=== PATIENT | male | born 1960 | race Caucasian/White ===

== ENCOUNTER 2024-10-29 14:58 | Emergency (ER) | payer MEDICARE, SELFPAY ==
--- NOTE | 2024-10-29 15:00 | RT.EKG_ITS ---
APPROVED REPORT Exam: Resting ECG Reason for Exam: BP varying Patient Location: E HR:72 bpm ECG Measurements Heart Rate 72 AXIS [place] 164 P 49 QRSd 97 QRS -63 QT 401 T 62 QTc 439 Conclusion Sinus rhythm...normal P axis, V-rate 60- [address] segment or T wave abnormalities to suggest occlusive [place]
[2024-10-29 15:03] VITALS: BP 193/103; PULSE 79; RESP 20; TEMP 36.6; O2SAT 95
--- NOTE | 2024-10-29 15:23 | W.ED.GENAD ---
Discharge Plan Disposition Patient Disposition: Home Condition: Stable Discharge Details Clinical Impression: Hypertension Primary Care Provider: None,None ED Provider: Louie Diego Home Meds and New Rx's Prescriptions: New amlodipine 2.5 mg tablet 2.5 mg PO DAILY 30 Days Qty: 30 0RF No Action clonazepam 1 mg tablet 1 mg PO TID Discharge Instructions Instructions: Amlodipine, High Blood Pressure ED, Low-sodium diet Additional Instructions: You were seen in the emergency department for your many symptoms. There is no significant laboratory abnormalities. CT of your head shows no tumor or any other abnormality, the CT from your neck through your pelvis shows no significant abnormality, does show that you have gallstones in the gallbladder that you should pursue outpatient ultrasound once you have a primary care provider. You have some findings in your lungs including a likely slowly developing pulmonary fibrosis, you have an infiltrate in the right upper lung that needs reimaging to see if it resolves on its own. You likely need a referral to pulmonology for baseline pulmonary function testing. I think your dizziness and intermittent blurry vision is due to uncontrolled hypertension, I am sending you the lowest dose of amlodipine sent to [facility]. I have placed you on the list for primary care follow-up, you are 64 years old I think it is very corey that you begin taking care of some of these chronic issues, there is no emergent pathology on a very thorough workup this evening. Please return to the emergency department for chest pain, numbness tingling, shortness of breath, fever, severe abdominal pain or any other emergent concerns. Referrals: [facility] [Provider Group] [facility] [Provider Group] Discharge Data Discharge Date/Time-TO BE ENTERED AT DEPARTURE: 10/29/24 18:45 HPI General Date/Time Provider Initiated Documentation: 10/29/24 14:59. HPI Narrative: 64 year-old male presents to ED today by POV/ambulating with his with a chief complaint of constellation of complaints - reports that his BP has been high, his pulse has been labile, he has had vague R eye blurriness intermittently, and pulsatile whooshing in his ears, endorses switching to a keto-diet 1.5 years ago with weight loss from 260-140lbs, and endorsing intermittent polyuria. Quality described as just feels his whole body is going downhill, no radiation to night sweats, cough, abdominal pain, chest pain, shortness of breath, loss of vision, profound lethargy, endorses early satiety lately, endorses a lump on his L trapezius, and an intermittent R groin swelling that is not painful, that sometimes appears when he is straining to urinate/have a bowel movement. Severity is described as unable to quantify. Palliating factors include nothing specific attempted. Provoking factors include nothing specific. Events leading up to the incident/Associated Symptoms: Patient denies cardiac history, denies pulmonary pathology, endorses he is bipolar and very sensitive to a recent brand change to his clonazepam. Patient had norovirus last week but has resolved. Patient not anticoagulated. Related Data Home Medications ?Medication ?Instructions ?Recorded ?Confirmed amlodipine 2.5 mg tablet 2.5 mg PO DAILY hypertension 30 10/29/24 days #30 tabs clonazepam 1 mg tablet 1 mg PO TID 10/29/24 10/29/24 Previous Rx's ?Medication ?Instructions ?Recorded amlodipine 2.5 mg tablet 2.5 mg PO DAILY hypertension 30 10/29/24 days #30 tabs Allergies Allergy/AdvReac Type Severity Reaction Status Date / Time No Known Allergies Allergy Unverified 10/29/24 15:15 General Stated Complaint: [facility]Medical BONNIE: 3 Review of Systems All systems reviewed & are unremarkable except as noted in HPI and below Exam Narrative Exam Narrative: GENERAL APPEARANCE: Well-nourished, non-toxic, awake and alert, atraumatic, no acute distress. SKIN: Warm, pink, dry, intact, without rashes/lesions/ulcerations. HEAD: Normocephalic, atraumatic, normal hair distribution for gender/age. EYES: Normal conjunctiva, no exudates on lids/lashes. ENT: Nares patent, no circumoral cyanosis, no facial swelling NECK: Supple, trachea midline, painless cervical ROM. LUNGS/CHEST: Lungs CTA bilaterally, non-labored respirations, normal A/P diameter, symmetrical expansion, no chest wall deformity HEART (CV/PV): Regular rate and rhythm without murmur, no peripheral edema, no JVD. ABDOMEN: Soft, non-distended, no guarding. MSK: Normal ROM, no swelling/deformity to bilateral UEs or LEs, moving all extremities without weakness, no cyanosis, spine midline without tenderness, normal curvature. NEURO: Mental Status AAOx4 - alert to person, place, time, events No facial droop, no forehead involvement. Motor: No focal weakness - strength 5/5 in bilateral UEs and LEs, proximal and distal, symmetric. Sensory: sensation intact to light touch globally. Gait normal: patient ambulated without ataxia into ED room. PSYCH: euthymic, cooperative, pleasant, appropriate speech Course Vital Signs Vital signs: Vital Signs Temperature 36.6 C 10/29/24 15:03 Pulse 79 10/29/24 15:03 Respiratory Rate 20 10/29/24 15:03 Blood Pressure 193/103 H 10/29/24 15:03 Pulse Oximetry 95 10/29/24 15:03 Temperature 36.6 C 10/29/24 15:03 Pulse 79 10/29/24 15:03 Respiratory Rate 20 10/29/24 15:03 Blood Pressure 193/103 H 10/29/24 15:03 Pulse Oximetry 95 10/29/24 15:03 Oxygen Delivery Method Room Air 10/29/24 15:03 Oxygen Flow Rate 0 10/29/24 15:03 Pain Level 0 10/29/24 15:03 Medical Decision Making This dictation utilizes [id number] dictation software and may contain unedited grammatical errors. 64 year-old male presents to ED today by POV/ambulating with his with a chief complaint of constellation of complaints - reports that his BP has been high, his pulse has been labile, he has had vague R eye blurriness intermittently, and pulsatile whooshing in his ears, endorses switching to a keto-diet 1.5 years ago with weight loss from 260-140lbs, and endorsing intermittent polyuria. Quality described as just feels his whole body is going downhill, no radiation to night sweats, cough, abdominal pain, chest pain, shortness of breath, loss of vision, profound lethargy, endorses early satiety lately, endorses a lump on his L trapezius, and an intermittent R groin swelling that is not painful, that sometimes appears when he is straining to urinate/have a bowel movement. Severity is described as unable to quantify. Palliating factors include nothing specific attempted. Provoking factors include nothing specific. Events leading up to the incident/Associated Symptoms: Patient denies cardiac history, denies pulmonary pathology, endorses he is bipolar and very sensitive to a recent brand change to his clonazepam. Patient had norovirus last week but has resolved. Patients' medical history: denies major medical history- records search returns no results. Family and social history: denies tobacco use, denies significant ETOH use, denies illicit substance use. Pertinent exam findings / vital signs include neuro intact, benign cardiopulmonary exam- no carotid bruits, visual santiago and vision grossly intact, benign abdomen, noted hypertension, lipomatous lump in L trapezius, no palpable R hernia. Differential / pathologies of concern include pseudotumor cerebri, SIADH or diabetes insipidus, malignancy, labile hypertension, arrhythmia, tick-borne illness, pheochromocytoma. Diagnostic studies of: -CBC, CMP, lactate, troponin, lipase, TSH, UA, magnesium, lactate, CT head with and without contrast, CT neck chest abdomen pelvis with contrast, EKG. -Imaging negative for any intracranial abnormality, there are no malignancies or suspicious findings on the CT of the chest abdomen pelvis or neck, counseled the patient on his finding of pulmonary fibrosis is a likely diagnosis -Laboratory workup is completely benign Interventions of: -Rx for 2.5mg amlodipine, placed on PCP referral list. ED Course/Assessment/Plan: 64-year-old male who does not go to any regular doctors visits presents with [id number] hypertension, bipolar disorder and a constellation of complaints including constitutional symptoms, blurry vision intermittently had a whooshing sound in his ears, his workup is negative for any kind of intracranial abnormality like pseudotumor cerebri or malignancy, his cardiac workup is negative, there is no suspicious findings in the abdomen and pelvis, is not having daily flushing of the skin. I do not suspect pheochromocytoma as a likely diagnosis, counseled the patient on the need for follow-up with primary care provider and started him on 2.5 of amlodipine while he awaits this with strict return criteria for any emergent concerns. Findings not consistent with malignancy, endorgan damage, ACS, intracranial abnormalities, pheochromocytoma. Disposition of Hypertension. Patient verbalized understanding of the plan and return to ED criteria and engaged in shared decision making. Medical Records Medical records reviewed: Yes I reviewed the patient's medical records. Imaging Data Radiologic Study: Attestation: I personally reviewed and interpreted this imaging study as follows: Imaging: CT Scan Radiologist's impression: EXAM: CT HEAD WO/W CLINICAL HISTORY: pulsatile tinnitus, hypertension. TECHNIQUE: Imaging Protocol: Both noninfused and contrast infused CT scans of the brain were performed. IV Contrast Dose =75 cc Axial computed tomography images with coronal and sagittal reformatted images were created and reviewed COMPARISON: No exams were available for comparison FINDINGS: There are no skull fractures nor fluid in the visualized paranasal sinuses. Cerumen is noted in the right external auditory canal. There is no evidence of intracranial hemorrhage, mass effect, or shift of midline structures. There are no extra-axial fluid collections. The ventricles are not enlarged or shifted and there is no blood within the ventricular system nor within the basal cisterns. 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 There is symmetrical involutional change which is slightly more so than typical for this age group. There are no ring enhancing lesions in the brain and there is no abnormal meningeal enhancement, focal or diffuse. IMPRESSION: No significant acute intracranial findings. No significant enhancing intracranial findings. There is symmetrical atrophy noted both supra and infra tentorial. Radiologic Study #2: Attestation: I personally reviewed and interpreted this imaging study as follows: Imaging: CT Scan Radiologist's impression: EXAM: CT NECK CHEST ABD PEL W CLINICAL HISTORY: constitutional symptoms, ?malignancy. TECHNIQUE: Imaging Protocol: Axial computed tomography images with coronal and sagittal reformatted images were created and reviewed CONTRAST MATERIAL: Intravenous: Omnipaque 350 Contrast volume:85 ml Oral: None COMPARISON: No exams were available for comparison FINDINGS: VISUALIZED PARANASAL SINUSES: Unremarkable. NASOPHARYNX: Unremarkable ORODENTAL: There is an anterior fusion plate in the anterior aspect of the mandible. No other significant osseous findings. OROPHARYNX: Unremarkable. No masses evident. HYPOPHARYNX: Unremarkable. Valleculae and epiglottis and aryepiglottic folds appear normal. VOCAL CORDS: Unremarkable. No masses evident. Subglottic airway appears unremarkable. THYROID GLAND: Unremarkable. Normal size and no obvious nodules. SALIVARY GLANDS: Unremarkable. No significant findings in the parotid and submandibular glands. LYMPH NODES: There is no adenopathy evident in the neck and supraclavicular regions. CHEST: LUNGS: There is chronic predominately periphery bilateral interstitial disease in both lung santiago, most probably pulmonary fibrosis. There is an area of patchy infiltrate noted in the right upper lobe measuring 1.2 x 1.0 cm.. Other smaller pleural based increased markings noted bilaterally. There are no pleural effusions evident. There no significant focal findings in the trachea and mainstem bronchi. There is no obvious bronchiectasis. PULMONARY ARTERIES: There are no intraluminal filling defects to suggest presence of obvious acute pulmonary emboli. MEDIASTINUM: There is no hilar nor mediastinal adenopathy. Visualized thyroid unremarkable. CARDIAC: Heart size is normal. There is no pericardial effusion.Caliber of the thoracic aorta is within normal limits. There is no evidence of aortic dissection. OSSEOUS: No significant osseous lesions.No fractures evident.. ABDOMEN: There is no ascites. LIVER: Liver is hypodense implying steatosis. There is a small benign cyst in the inferior right hepatic lobe which measures 0.5 x 0.5 cm. There are no other focal hepatic findings nor dilatation of intrahepatic ducts. GALLBLADDER/BILIARY: The gallbladder is septated at mid level peak there are innumerable tiny gallstones layered within the upper aspect/fundal area of the gallbladder lumen. Lower down there are 2 larger gallstones in the gallbladder neck region, the larger measuring 0.7 x 0.7 cm. The gallbladder itself is not distended nor edematous and there is no pericholecystic fluid CBD is not dilated. There are no calculi seen within the nondilated CBD. PANCREAS: No evidence of pancreatic mass nor dilatation of the pancreatic duct. SPLEEN: Spleen is not enlarged. There are no intrasplenic lesions. Splenic and portal veins are patent. ADRENALS: There are no significant adrenal masses. KIDNEYS: No calculi nor hydronephrosis. No solid renal masses. No cysts evident. ABDOMINAL AORTA: Abdominal aorta is not enlarged. There is incidentally noted common origin of the celiac and superior mesenteric arteries. No stenosis at this level. LYMPH NODES: There is no retroperitoneal nor paraaortic adenopathy. ABDOMINAL WALL: No evidence of significant anterior abdominal wall nor inguinal hernia. GI: There is fecalization of distal ileum loop which exhibits upper normal diameter.No evidence of small-bowel obstruction. No ascites nor free air. PELVIS: LYMPH NODES: There is no intrapelvic nor inguinal adenopathy. GI: The appendix is difficult to identify is individual structure but there are no obvious secondary findings of acute appendicitis.There is extensive sigmoid diverticulosis. No obvious acute diverticulitis. URINARY BLADDER: Posterior wall the bladder is indented by significantly enlarged prostate gland which measures 5.5 cm wide. No distinct mass within the urinary bladder lumen. No intraluminal calculi in the urinary bladder. Pelvic ureters not dilated. REPRODUCTIVE: Enlarged prostate gland measuring 5 cm wide. Seminal vesicles unremarkable. OSSEOUS: No significant osseous lesions. No fractures. IMPRESSION: 1. There is evidence of chronic interstitial bilateral lung disease, probably element chronic pulmonary fibrosis. Small 12 x 10 mm infiltrate noted in the right lung apex. No other confluent infiltrates and there are no pleural effusions nor significant intrathoracic adenopathy evident. 2. No evidence of pulmonary emboli nor aortic dissection. No pericardial effusion. 3. Although there is no evidence of obvious acute cholecystitis, the gallbladder is abnormal in that there are innumerable tiny gallstones in the upper half of the gallbladder above the level of the septum and there are 2 larger gallstones in the lower aspect of the gallbladder with the larger measuring 7 mm. There is no pericholecystic fluid. The CBD is not dilated and there are no radiopaque calculi in the nondilated CBD. Also no evidence of pancreatitis. 4. There is fecalization of distal ileal loop. However, there is no evidence of bowel obstruction. 5. Enlarged prostate gland measuring 5 cm wide. This indents the bladder base. There is no distinct mass within the bladder itself. Report called by myself to ER provider 10/29/2024 at 6:25 p.m. Lab Data Lab results reviewed: Yes I reviewed the patient's lab results. Labs: Laboratory Tests Range/Units 10/29/24 10/29/24 15:38 15:53 WBC (4.4-10.8) 10^3/uL 5.71 RBC (4.36-5.78) 10^6/uL 5.15 Hgb (13.5-17.5) g/dL 15.3 Hct (40.0-50.0) % 45.2 MCV (80-95) fL 88 MCH (27.0-33.0) pg 29.7 MCHC (32.0-36.0) % 33.8 RDW (11.8-14.1) % 12.3 Plt Count (130-400) 10^3/uL 245 MPV (8.0-11.0) fL 9.3 Immature Gran % % 0.4 Neutrophils % % 63.8 Lymphocytes % % 24.0 Monocytes % % 8.6 Eosinophils % % 2.1 Basophils % % 1.1 Nucleated RBC % (0.0-0.3) % 0.0 Absolute Neutrophils (1.2-6.7) 10^3/uL 3.65 Absolute Lymphocytes (1.2-3.4) 10^3/uL 1.37 Absolute Monocytes (0.1-0.8) 10^3/uL 0.49 Absolute Eosinophils (0.0-0.7) 10^3/uL 0.12 Absolute Basophils (0.0-0.2) 10^3/uL 0.06 VBG Lactate (0.6-1.4) mmol/L 1.1 Sodium (136-145) mmol/L 142 Potassium (3.5-5.1) mmol/L 3.7 Chloride (98-107) mmol/L 101 Carbon Dioxide (21.0-32.0) mmol/L 32.3 H Anion Gap (3-11) mmol/L 8.7 BUN (7-18) mg/dL 14 Creatinine (0.70-1.30) mg/dL 1.2 Est GFR (CKD-EPI 2020) (mL/min/1.73m2) 66.70 Glucose (74-106) mg/dL 87 Calcium (8.5-10.1) mg/dL 9.6 Magnesium (1.8-2.4) mg/dL 2.2 Total Bilirubin (0.2-1.0) mg/dL 0.70 Conjugated Bilirubin (0.0-0.2) mg/dL 0.2 AST (15-37) U/L 17 ALT (16-63) U/L 14 L Alkaline Phosphatase (46-116) U/L 52 Troponin I (<or=76) ng/L 6 Total Protein (6.4-8.2) g/dL 8.6 H Albumin (3.4-5.0) g/dL 4.3 Lipase (<78) U/L 50 TSH (0.36-3.74) uIU/mL 1.72 Urine Color (Yellow) Yellow Urine Clarity (Clear) Clear Urine pH (5-8) 5.5 Ur Specific [place] (1.005-1.025) 1.010 Urine Protein (Neg-Trace) mg/dL Negative Urine Ketones (Negative) mg/dL Negative Urine Blood (Negative) Negative Urine Nitrite (Negative) Negative Urine Bilirubin (Negative) Negative Urine Urobilinogen (Up to 0.2) mg/dL 0.2 Ur Leukocyte Esterase (Negative) Trace H Urine RBC (0-2) HPF Negative Urine WBC (0-5) HPF 5-10 Ur Epithelial Cells (Negative) HPF Negative Urine Crystals (Negative) HPF Negative Urine Bacteria (Negative) HPF Negative Urine Casts (Negative) LPF Negative Urine Mucus (Negative) Negative Ur Culture Indicated? No Urine Glucose (Negative) mg/dL Negative Quality:SDOH Health Related Social Needs: No Data to Display PFSH All Active Problems (Updated 10/29/24 @ 18:44 by JAMIE Portillo) Hypertension (Chronic) Social History Smoking/Tobacco Use Status: Never Smoking risk assessment performed?: Yes Alcohol Intake: never Drug use: Never Substance use type: does not use Housing: apartment Do you feel safe at home: Yes Do you feel safe in your relationship?: Yes
--- NOTE | 2024-10-29 15:30 | DI.CT_ITS ---
Exam(s) CT HEAD WO/W EXAM: CT HEAD WO/W CLINICAL HISTORY: pulsatile tinnitus, hypertension. TECHNIQUE: Imaging Protocol: Both noninfused and contrast infused CT scans of the brain were perform ed. IV Contrast Dose =75 cc Axial computed tomography images with coronal and sagittal reformatted images were created and review ed COMPARISON: No exams were available for comparison FINDINGS: There are no skull fractures nor fluid in the visualized paranasal sinuses. Cerumen is noted in the right external auditory canal. There is no evidence of intracranial hemorrhage, mass effect, or shift of midline structures. There are no extra-axial fluid collections. The ventricles are not enlarged or shifted and there is no blo od within the ventricular system nor within the basal cisterns. 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 There is symmetrical involutional change which is slight ly more so than typical for this age group. There are no ring enhancing lesions in the brain and there is no abnormal meningeal enhancement, foca l or diffuse. IMPRESSION: No significant acute intracranial findings. No significant enhancing intracranial findings. There is symmetrical atrophy noted both supra and infra tentorial. RADIATION DOSE DELIVERED: 1,772.29mGy.cm Total DLP DATA REPOSITORY: All CT scans at this facility are submitted to the National Radiology Data Registry (NRDR) Dose Index Registry (DIR) with the [employer] ([employer]). RADIATION OPTIMIZATION: All CT scans at this facility use at least one of these dose optimization te chniques: automated exposure control; mA and/or kV adjustment per patient size (includes targeted exa ms where dose is matched to clinical indication); or iterative reconstruction.
--- NOTE | 2024-10-29 15:30 | DI.CT_ITS ---
Exam(s) CT NECK CHEST ABD PEL W EXAM: CT NECK CHEST ABD PEL W CLINICAL HISTORY: constitutional symptoms, ?malignancy. TECHNIQUE: Imaging Protocol: Axial computed tomography images with coronal and sagittal reformatted images were created and reviewed CONTRAST MATERIAL: Intravenous: Omnipaque 350 Contrast volume:85 ml Oral: None COMPARISON: No exams were available for comparison FINDINGS: VISUALIZED PARANASAL SINUSES: Unremarkable. NASOPHARYNX: Unremarkable ORODENTAL: There is an anterior fusion plate in the anterior aspect of the mandible. No other signif icant osseous findings. OROPHARYNX: Unremarkable. No masses evident. HYPOPHARYNX: Unremarkable. Valleculae and epiglottis and aryepiglottic folds appear normal. VOCAL CORDS: Unremarkable. No masses evident. Subglottic airway appears unremarkable. THYROID GLAND: Unremarkable. Normal size and no obvious nodules. SALIVARY GLANDS: Unremarkable. No significant findings in the parotid and submandibular glands. LYMPH NODES: There is no adenopathy evident in the neck and supraclavicular regions. CHEST: LUNGS: There is chronic predominately periphery bilateral interstitial disease in both lung santiago, m ost probably pulmonary fibrosis. There is an area of patchy infiltrate noted in the right upper lobe measuring 1.2 x 1.0 cm.. Other smaller pleural based increased markings noted bilaterally. There a re no pleural effusions evident. There no significant focal findings in the trachea and mainstem bro nchi. There is no obvious bronchiectasis. PULMONARY ARTERIES: There are no intraluminal filling defects to suggest presence of obvious acute pu lmonary emboli. MEDIASTINUM: There is no hilar nor mediastinal adenopathy. Visualized thyroid unremarkable. CARDIAC: Heart size is normal. There is no pericardial effusion.Caliber of the thoracic aorta is wit hin normal limits. There is no evidence of aortic dissection. OSSEOUS: No significant osseous lesions.No fractures evident.. ABDOMEN: There is no ascites. LIVER: Liver is hypodense implying steatosis. There is a small benign cyst in the inferior right hep atic lobe which measures 0.5 x 0.5 cm. There are no other focal hepatic findings nor dilatation of i ntrahepatic ducts. GALLBLADDER/BILIARY: The gallbladder is septated at mid level peak there are innumerable tiny gallsto ab layered within the upper aspect/fundal area of the gallbladder lumen. Lower down there are 2 lar bhavesh gallstones in the gallbladder neck region, the larger measuring 0.7 x 0.7 cm. The gallbladder it self is not distended nor edematous and there is no pericholecystic fluid CBD is not dilated. There are no calculi seen within the nondilated CBD. PANCREAS: No evidence of pancreatic mass nor dilatation of the pancreatic duct. SPLEEN: Spleen is not enlarged. There are no intrasplenic lesions. Splenic and portal veins are verde nt. ADRENALS: There are no significant adrenal masses. KIDNEYS: No calculi nor hydronephrosis. No solid renal masses. No cysts evident. ABDOMINAL AORTA: Abdominal aorta is not enlarged. There is incidentally noted common origin of the c eliac and superior mesenteric arteries. No stenosis at this level. LYMPH NODES: There is no retroperitoneal nor paraaortic adenopathy. ABDOMINAL WALL: No evidence of significant anterior abdominal wall nor inguinal hernia. GI: There is fecalization of distal ileum loop which exhibits upper normal diameter.No evidence of sm all-bowel obstruction. No ascites nor free air. PELVIS: LYMPH NODES: There is no intrapelvic nor inguinal adenopathy. GI: The appendix is difficult to identify is individual structure but there are no obvious secondary findings of acute appendicitis.There is extensive sigmoid diverticulosis. No obvious acute diverticu litis. URINARY BLADDER: Posterior wall the bladder is indented by significantly enlarged prostate gland whic h measures 5.5 cm wide. No distinct mass within the urinary bladder lumen. No intraluminal calculi in the urinary bladder. Pelvic ureters not dilated. REPRODUCTIVE: Enlarged prostate gland measuring 5 cm wide. Seminal vesicles unremarkable. OSSEOUS: No significant osseous lesions. No fractures. IMPRESSION: 1. There is evidence of chronic interstitial bilateral lung disease, probably element chronic pulmona ry fibrosis. Small 12 x 10 mm infiltrate noted in the right lung apex. No other confluent infiltrat es and there are no pleural effusions nor significant intrathoracic adenopathy evident. 2. No evidence of pulmonary emboli nor aortic dissection. No pericardial effusion. 3. Although there is no evidence of obvious acute cholecystitis, the gallbladder is abnormal in that there are innumerable tiny gallstones in the upper half of the gallbladder above the level of the sep lizabeth and there are 2 larger gallstones in the lower aspect of the gallbladder with the larger measurin g 7 mm. There is no pericholecystic fluid. The CBD is not dilated and there are no radiopaque calcu li in the nondilated CBD. Also no evidence of pancreatitis. 4. There is fecalization of distal ileal loop. However, there is no evidence of bowel obstruction. 5. Enlarged prostate gland measuring 5 cm wide. This indents the bladder base. There is no distinc t mass within the bladder itself. Report called by myself to ER provider 10/29/2024 at 6:25 p.m. RADIATION DOSE DELIVERED: 916.63mGy.cm Total DLP 916.63mGy.cm Total DLP 916.63mGy.cm Total DLP 916.63mGy.cm Total DLP DATA REPOSITORY: All CT scans at this facility are submitted to the National Radiology Data Registry (NRDR) Dose Index Registry (DIR) with the [employer] (A[employer]). RADIATION OPTIMIZATION: All CT scans at this facility use at least one of these dose optimization te chniques: automated exposure control; mA and/or kV adjustment per patient size (includes targeted exa ms where dose is matched to clinical indication); or iterative reconstruction.
[2024-10-29 15:59] LABS: Abs Immature Grans 0.02 10^3/uL (0.0-0.06); Absolute Basophil Count 0.06 10^3/uL (0.0-0.2); Absolute Eosinophil Count 0.12 10^3/uL (0.0-0.7); Absolute Lymphocyte Count 1.37 10^3/uL (1.2-3.4); Absolute Monocyte Count 0.49 10^3/uL (0.1-0.8); Absolute Neutrophil Count 3.65 10^3/uL (1.2-6.7); Basophils % 1.1 %; Eosinophils % 2.1 %; HCT 45.2 % (40.0-50.0); HGB 15.3 g/dL (13.5-17.5); Immature Grans % 0.4 %; Lactate 1.1 mmol/L (0.6-1.4); MCH 29.7 pg (27.0-33.0); MCHC 33.8 % (32.0-36.0); MCV 88 fL (80-95); MPV 9.3 fL (8.0-11.0); Monocytes % 8.6 %; Neutrophils % 63.8 %; Platelet Count 245 10^3/uL (130-400); RBC 5.15 10^6/uL (4.36-5.78); RDW 12.3 % (11.8-14.1); WBC 5.71 10^3/uL (4.4-10.8)
[2024-10-29 16:09] LABS: Bilirubin Negative (Negative); Blood Negative (Negative); Clarity Clear (Clear); Glucose Negative (Negative); Ketones Negative (Negative); Leukocyte Esterase Trace (Negative); Nitrite Negative (Negative); Urobilinogen 0.2 mg/dL (Up to 0.2); pH 5.5 (5-8)
[2024-10-29 16:33] LABS: ALT 14 U/L (16-63); AST 17 U/L (15-37); Albumin 4.3 g/dL (3.4-5.0); Alkaline Phosphatase 52 U/L (46-116); Anion Gap 8.7 mmol/L (3-11); BUN 14 mg/dL (7-18); Bilirubin, Direct 0.2 mg/dL (0.0-0.2); CO2 32.3 mmol/L (21.0-32.0); CREATININE 1.2 mg/dL (0.70-1.30); Calcium 9.6 mg/dL (8.5-10.1); Chloride 101 mmol/L (98-107); Glucose 87 mg/dL (74-106); Lipase 50 U/L (<78); Magnesium 2.2 mg/dL (1.8-2.4); Potassium 3.7 mmol/L (3.5-5.1); Sodium 142 mmol/L (136-145); TSH (W/Ref FT4) 1.72 uIU/mL (0.36-3.74); Total Protein 8.6 g/dL (6.4-8.2); Troponin I 6 ng/L (<or=76)
[2024-10-29 16:33] LABS: Bacteria Negative HPF (Negative); C & S Indicated? No; Casts Negative LPF (Negative); Crystals Negative HPF (Negative); Epithelial Cells Negative HPF (Negative); Mucus Negative (Negative); RBC Negative HPF (0-2)
[2024-10-29] MEDS: Omnipaque 350 MG/ML 100 ML BTL IJ ×2 (17:21→17:29)
[2024-10-29] MEDS: Normal Saline - Diluent 50 ML VIAL IJ ×2 (17:22→17:30)
[2024-10-29 18:45] VITALS: BP 183/97; PULSE 85; RESP 16; RESP 18; O2SAT 100
[2024-10-30 11:55] LABS: Lyme Ab w Rflx to Lyme Confirm Positive (Negative)
[2024-10-30 13:53] LABS: Lyme IgG Ab Negative (Negative); Lyme IgM Ab Negative (Negative)
[2024-11-01 00:02] LABS: Anaplasma phagocytophilum Negative (Negative); B. miyamotoi PCR Negative (Negative); Babesia divergens/MO-1 Negative (Negative); Babesia duncani Negative (Negative); Babesia microti Negative (Negative); Ehrlichia chaffeensis Negative (Negative); Ehrlichia ewingii/canis Negative (Negative); Ehrlichia muris eauclairensis Negative (Negative)
== END 2024-10-29 18:45 | disposition home or self-care (01) ==
PROVIDERS: Emergency Provider Physician Assistant
DX: R42 Dizziness and giddiness (principal); H53.8 Other visual disturbances; I10 Essential (primary) hypertension; H93.A1 Pulsatile tinnitus, right ear; H61.21 Impacted cerumen, right ear; J84.9 Interstitial pulmonary disease, unspecified; Z98.1 Arthrodesis status
CPT/HCPCS: 70491; 74177; 80048; 80076; 83690; 86617; 87798; 93005; 99285; 70470; 71260; 81003; 81015; 83605; 83735; 84443; 84484; 85025; 86618; 93010; 99284; J3490

== ENCOUNTER 2024-12-26 10:59 | Outpatient (CLI) | payer MEDICARE, SELFPAY ==
[2024-12-26 12:49] LABS: PROTEIN 9.8 mg/dL; Prot/Crea Ur Ratio 0.13
[2024-12-26 13:21] LABS: Calculated LDL 149 mg/dL (<100); Cholesterol 238 mg/dL (<200); HDL Cholesterol 77 mg/dL (>or=40); Triglyceride 61 mg/dL (<150); Vitamin B12 1049 pg/mL (193-986)
[2024-12-28 10:32] LABS: HIV-1/2 Ag & Ab Screen Negative (Negative)
[2024-12-29 09:47] LABS: PSA, Screening 9.5 ng/mL (<=4.5)
[2024-12-29 13:07] LABS: Hepatitis C Ab w Rflx HCV PCR Negative (Negative)
== END 2024-12-26 11:00 | disposition home or self-care (01) ==
LOC: LOS 10:59
PROVIDERS: PCP Family Medicine; Referring Provider Family Medicine; Visit Provider Family Medicine
DX: Z11.4 Encounter for screening for human immunodeficiency virus [HIV] (principal); Z13.6 Encounter for screening for cardiovascular disorders; R63.4 Abnormal weight loss; Z11.59 Encounter for screening for other viral diseases; Z12.5 Encounter for screening for malignant neoplasm of prostate; I10 Essential (primary) hypertension
CPT/HCPCS: 36415; 80061; 84153; 86803; 87389; 82565; 82607; 84156

== ENCOUNTER 2025-01-02 13:46 | Emergency (ER) | payer MEDICARE, SELFPAY ==
[2025-01-02 13:48] VITALS: BP 168/111; PULSE 86; RESP 28; O2SAT 100
--- NOTE | 2025-01-02 13:48 | W.ED.GENAD ---
Discharge Plan Disposition Patient Disposition: Home Discharge Details Clinical Impression: Polyuria, Elevated blood pressure reading with diagnosis of hypertension Primary Care Provider: Delia Jones ED Provider: Vik Palumbo Home Meds and New Rx's Prescriptions: Continued clonazepam 1 mg tablet 1 mg PO TID Discharge Instructions Additional Instructions: You are seen in the emergency department for your frequent urination. You have no signs of urinary tract infection. Your blood work shows that your kidneys are working well. As we discussed if you pass out develop fevers or blood in your urine please return to emergency department. Otherwise please follow-up with primary care provider concerning your elevated blood pressure. HPI General Date/Time Provider Initiated Documentation: 01/02/25 13:48. HPI Narrative: MDM This is overall very well-appearing normothermic and not tachycardic 64-year-old male with complaint of polyuria but urinalysis negative for UTI for which patient received comprehensive assessment of his labs. He had no anemia nor thrombocytopenia nor leukocytosis. He was very mildly hypercalcemic but had no symptoms. His urinalysis was nitrite and leuk esterase negative not consistent with UTI. He had intentionally lost a significant amount of weight over the past year. He is having no B symptoms night sweats mouth sores nor any abdominal pain to suggest increased risk for malignancy though this certainly remains in the differential given his age. He has a soft nontender abdomen so I do not feel he required an emergent CT scan. He was saturating quite well on room air so I did not feel he required an emergent chest x-ray. He certainly may have BPH but in the absence of a UTI I did not feel that he would benefit from antibiotics. No chest pain to suggest ACS I did not obtain an ECG. No flank pain to suggest ureterolithiasis. No abdominal pain to suggest increased risk for acute cholecystitis I did not feel that the patient required an emergent ultrasound. He says that over the past year he has intentionally lost approximately 100 pounds. He has had decreased appetite. He also notes that he has been urinating every several hours he had no focal weakness to suggest CVA so I do not feel he would be a tPA candidate nor he required a CT scan of his head. I considered sepsis however the patient was not hypotensive tachycardic nor febrile so I felt that the risks of blood cultures broad-spectrum antibiotics and assessment of lactate outweighed the benefits. No pain out of proportion to suggest necrotizing soft tissue infection. Patient is tolerating p.o. and appears well-hydrated so no indication for IV fluids. He did have an elevated blood pressure and I advised that he follow-up with his primary care provider for reassessment. We also discussed that he should return to the ED he developed nausea vomiting chest pain or shortness of breath. HPI This is a 64-year-old male history of hypertension cholelithiasis and bipolar disorder arrived in the emergency department via EMS in the setting of polyuria weakness and weight loss. Overnight. His fingerstick blood glucose was normal for paramedics. He has had no weight loss night sweats cough fevers abdominal pain or chest pain. He has reportedly been told remotely in the past that he has enlarged prostate. Denies routine tobacco, ethanol, and illicits. Exam General: Well-appearing in no acute distress speaking in complete sentences. Head: Normocephalic, atraumatic. Eye: Extraocular eye movements intact. No conjunctival injection. No scleral icterus. Ear, nose, mouth, throat: Grossly normal inspection. Normal voice, handling secretions normally. Neck: Trachea midline. Cardiovascular: Well-perfused distal extremities. Regular rate and rhythm. Respiratory: Nonlabored respiration. Clear lungs bilaterally. Gastrointestinal: Nondistended abdomen. Soft. Nontender. No rebound. No guarding. Musculoskeletal: No edema. Moving all 4 extremities spontaneously. Skin: Normal for age and race, grossly normal temperature and turgor. No acute rash. Neurologic: Alert and appropriate, no apparent acute deficits. Cranial nerves II through XII intact grossly. 5 out of 5 bilateral upper and lower extremity strength. Related Data Home Medications ?Medication ?Instructions ?Recorded ?Confirmed clonazepam 1 mg tablet 1 mg PO TID 10/29/24 01/02/25 Allergies Allergy/AdvReac Type Severity Reaction Status Date / Time amlodipine AdvReac Intermediate Abdominal Unverified 01/02/25 14:14 pain General BONNIE: 3 Medical Decision Making Quality:SDOH Health Related Social Needs: No Data to Display PFSH All Active Problems (Updated 01/02/25 @ 14:57 by Vik Palumbo MD) Elevated blood pressure reading with diagnosis of hypertension (Acute) Polyuria (Acute) Elevated PSA (Acute) BPH loc w/o ur obs/LUTS (Acute) Losing weight (Acute) Cholelithiasis without cholecystitis (Acute) Bipolar 1 disorder (Chronic 2020) Managed with clonazepam; psychiatrist in [place] Hypertension (Chronic) good control with Ramipril; adverse effects with amlodipine. Unable to tolerate ramipril Medical History (Updated 01/02/25 @ 14:57 by Vik Palumbo MD) Hx of gastroesophageal reflux (GERD) resolved with weight loss Hx of sleep apnea resolved with weight loss Surgical History (Updated 11/17/24 @ 16:45 by Simona Caputo RN) History of mandibular surgery (~1997) mandible advancement for sleep apnea, [facility] Family History (Updated 11/21/24 @ 11:35 by Delia Jones MD) Mother Heart disease Father Heart disease Brother Heart disease Brother Parkinson disease Atrial fibrillation Social History (Updated 11/21/24 @ 11:34 by Delia Jones MD) Smoking/Tobacco Use Status: Never Smoking risk assessment performed?: Yes Alcohol Intake: never Drug use: Never Substance use type: does not use Adopted: No Caregiver/Support person: No Household members: family Housing: apartment Number of Children: 0 Communication Needs: None Education Level: college Do you need help understanding health information?: Never current occupation: retired, varied jobs Sexually active: No Current gender identity: male What is your relationship status?: never How often do you talk on the phone with friends or family?: three or more times per week How often do you get together with friends or relatives?: three or more times per week How often do you attend gnosticist or samaritan services?: 4 or more times per year Do you belong to any clubs or organized social groups?: decline to answer Panel score (0-1 are the most socially isolated patients): 2 NHANES result reviewed/action taken: Yes What type of physical activity do you participate in: walking, bicycling and other Details: hiking, pushups, sit ups, crunches, squats Duration: 45-60 minutes/day Frequency: daily Delia/Presybeterian: Pentecostalism Special delia needs: No Seatbelt use: always 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
[2025-01-02 14:05] VITALS: BP 169/93; PULSE 85; RESP 22; TEMP 36.5; O2SAT 99
[2025-01-02 14:12] VITALS: BP 169/93; PULSE 85; RESP 22; TEMP 36.5; O2SAT 99
[2025-01-02 14:32] LABS: Abs Immature Grans 0.01 10^3/uL (0.0-0.06); Absolute Basophil Count 0.04 10^3/uL (0.0-0.2); Absolute Eosinophil Count 0.09 10^3/uL (0.0-0.7); Absolute Lymphocyte Count 1.23 10^3/uL (1.2-3.4); Absolute Monocyte Count 0.53 10^3/uL (0.1-0.8); Absolute Neutrophil Count 3.79 10^3/uL (1.2-6.7); Basophils % 0.7 %; Bilirubin Negative (Negative); Blood Negative (Negative); Clarity Clear (Clear); Eosinophils % 1.6 %; Glucose Negative (Negative); HCT 48.3 % (40.0-50.0); HGB 16.4 g/dL (13.5-17.5); Immature Grans % 0.2 %; Ketones Negative (Negative); Leukocyte Esterase Negative (Negative); Lymphocytes % 21.6 %; MCV 86 fL (80-95); MPV 9.2 fL (8.0-11.0); Monocytes % 9.3 %; Neutrophils % 66.6 %; Nitrite Negative (Negative); Platelet Count 232 10^3/uL (130-400); RBC 5.65 10^6/uL (4.36-5.78); RDW 12.9 % (11.8-14.1); Urobilinogen 0.2 mg/dL (Up to 0.2); WBC 5.69 10^3/uL (4.4-10.8)
[2025-01-02 14:45] LABS: ALT 26 U/L (16-63); AST 22 U/L (15-37); Albumin 4.6 g/dL (3.4-5.0); Alkaline Phosphatase 52 U/L (46-116); Anion Gap 8.7 mmol/L (3-11); BUN 11 mg/dL (7-18); Bilirubin, Total 0.5 mg/dL (0.2-1.0); CO2 30.3 mmol/L (21.0-32.0); CREATININE 1.1 mg/dL (0.70-1.30); Calcium 10.2 mg/dL (8.5-10.1); Chloride 99 mmol/L (98-107); Estimated GFR 74.04 (mL/min/1.73m2); Glucose 109 mg/dL (74-106); Potassium 4.4 mmol/L (3.5-5.1); Sodium 138 mmol/L (136-145); Total Protein 9.3 g/dL (6.4-8.2)
== END 2025-01-02 15:07 | disposition home or self-care (01) ==
PROVIDERS: Emergency Provider Emergency Medicine; PCP Family Medicine
DX: R35.89 Other polyuria (principal); I10 Essential (primary) hypertension
CPT/HCPCS: 36415; 80053; 99283; 81003; 85025

== ENCOUNTER 2025-04-20 13:08 | Inpatient (IN) | payer MEDICARE, SELFPAY ==
[2025-04-20] VITALS (25 sets, daily range): BP systolic 133–170; BP diastolic 67–114; PULSE 71–128; RESP 11–31; TEMP 36.4–36.7; O2SAT 96–100
--- NOTE | 2025-04-20 13:00 | RT.EKG_ITS ---
APPROVED REPORT Exam: Resting ECG Reason for Exam: baseline/screening Patient Location: E HR:126 bpm ECG Measurements Heart Rate 126 AXIS VA 143 P 73 QRSd 72 QRS -65 QT 319 T 86 QTc 460 Conclusion Sinus tachycardia...rate> 99 Prominent P waves, nondiagnostic...wide/notched/biphasic P waves Inferior infarct, old...Q >35mS, II III aVF
--- NOTE | 2025-04-20 13:20 | ED.GENADUL_ITS ---
Discharge Plan Disposition Patient Disposition: Admit to [facility] Condition: Stable Discharge Details Clinical Impression: Acute dehydration, Hypermagnesemia Primary Care Provider: Sha Hillman ED Provider: Louie Diego Home Meds and New Rx's Prescriptions: No Action tetanus-diphtheria toxoids-Td 2-2 Lf unit/0.5 mL suspension 0.5 ml IM ONCE Qty: 0.5 0RF clonazepam 1 mg tablet 1 mg PO TID HPI General Date/Time Provider Initiated Documentation: 04/20/25 13:11 . HPI Narrative: 65 year-old male presents to ED today by EMS with a chief complaint of weakness per at home- states he hasn't been eating for the past 5-10 days, reported a burning sensation with eating so he just stopped. Quality described as no pain anywhere, no radiation to chest pain, abdominal pain despite being extremely frail, shortness of breath, cough, fever, vomiting, diarrhea. Severity is described as mild. Palliating factors include nothing specific. Provoking factors include nothing specific. Events leading up to the incident/Associated Symptoms: Patient does not go to the doctor often, states he takes no medications. Patient not anticoagulated. Related Data Home Medications ?Medication ?Instructions ?Recorded ?Confirmed clonazepam 1 mg tablet 1 mg PO TID 10/29/24 5 tetanus-diphtheria toxoids-Td 2 Lf 0.5 ml IM ONCE #0.5 mL 03/04/25 03/04/25 unit-2 Lf unit/0.5 mL IM suspension Previous Rx's ?Medication ?Instructions ?Recorded tetanus-diphtheria toxoids-Td 2 Lf 0.5 ml IM ONCE #0.5 mL 03/04/25 unit-2 Lf unit/0.5 mL IM suspension Allergies Allergy/AdvReac Type Severity Reaction Status Date / Time amlodipine AdvReac Intermediate Abdominal Unverified 04/20/25 13:15 pain General Stated Complaint: GenMedical BONNIE: 3 Review of Systems All systems reviewed & are unremarkable except as noted in HPI and below Exam Narrative Exam Narrative: GENERAL APPEARANCE: Very cachectic, toxic, awake and alert, atraumatic, mild acute distress. SKIN: Warm, pale, dry, intact, without rashes/lesions/ulcerations. HEAD: Normocephalic, atraumatic, normal hair distribution for gender/age. EYES: Normal conjunctiva, no exudates on lids/lashes. ENT: Nares patent, no circumoral cyanosis, no facial swelling NECK: Supple, trachea midline, painless cervical ROM. LUNGS/CHEST: Lungs CTA bilaterally- no rhonchi/rales/wheezes diffusely, non- labored respirations, increased A/P diameter, symmetrical expansion, no chest wall deformity HEART (CV/PV): Regular rate and rhythm without murmur, no peripheral edema, no JVD. ABDOMEN: Soft, non-distended, no guarding, sunken, cachectic, no focal tenderness. MSK: Normal ROM, no swelling/deformity to bilateral UEs or LEs, moving all extremities without weakness, no cyanosis, spine midline without tenderness, normal curvature. NEURO: Mental Status AAOx4 - alert to person, place, time, events No facial droop, no forehead involvement. Motor: No focal weakness - strength 5/5 in bilateral UEs and LEs, proximal and distal, symmetric. Sensory: sensation intact to light touch globally. Gait NT. PSYCH: euthymic, cooperative, pleasant, appropriate speech Course Vital Signs Vital signs: Vital Signs Temperature 36.5 C 04/20/25 13:09 Pulse 123 H 04/20/25 13:09 Respiratory Rate 21 04/20/25 13:09 Blood Pressure 159/94 H 04/20/25 13:09 Pulse Oximetry 98 04/20/25 13:09 Temperature 36.5 C 04/20/25 13:15 Temperature Source Axillary 04/20/25 13:15 Pulse 119 H 04/20/25 13:15 Respiratory Rate 19 04/20/25 13:15 Blood Pressure 159/67 H 04/20/25 13:15 Blood Pressure Position Sitting 04/20/25 13:15 Pulse Oximetry 98 04/20/25 13:15 Oxygen Delivery Method Room Air 04/20/25 13:15 Oxygen Flow Rate 0 04/20/25 13:09 Lab/Test Results Lab/Test Results: 04/20/25 13:12 Blood Blood Culture - Pending 04/20/25 13:12 Blood Blood Culture - Pending Medical Decision Making This dictation utilizes [id number] dictation software and may contain u nedited grammatical errors. 65 year-old male presents to ED today by EMS with a chief complaint of weakness per at home- states he hasn't been eating for the past 5-10 days, reported a burning sensation with eating so he just stopped. Quality described as no pain anywhere, no radiation to chest pain, abdominal pain despite being extremely frail, shortness of breath, cough, fever, vomiting, diarrhea. Severity is described as mild. Palliating factors include nothing specific. Provoking factors include nothing specific. Events leading up to the incident/Associated Symptoms: Patient does not go to the doctor often, states he takes no medications. Patients' medical history: GERD, BPH with LUTS, unintentional weight loss, hypertension. Family and social history: Lives at home with his wif e, is not eating a healthy diet, denies EtOH use. Pertinent exam findings / vital signs include extremely cachectic, lungs CTA, tachycardic without murmor. Differential / pathologies of concern include malignancy, malnutrition, GERD, esophageal perforation, SBO, dehydration, sepsis. Diagnostic studies of: -CBC, CMP, lactate, lipase, troponin, blood cultures, urinalysis, magnesium, TSH, EKG, CTA chest PE study with abdomen/pelvis with contrast. - CBC shows leukocytosis at 11.6, no anemia - Lactate 2.5 likely in the setting of dehydration - CMP shows extreme hemoconcentration with a sodium of 155, BUN of 90 with a MALVIN creatinine of 1.9 which is not the patient's baseline, hypermagnesemia likely in the setting of hemoconcentration at 3.3 - Lipase within normal limits - Troponin 34 - TSH within normal limits - EKG shows sinus tachycardia at 126 with some sawtooth patterns, no ischemic changes - Blood Cx's pending - UA pending, no sample given - Patient is refusing CT studies at this time Interventions of: -2L IVF LR. ED Course/Assessment/Plan: 65-year-old male who appears very cachectic and frail presents with 5 to 10 days of not eating, appears very dehydrated, tachycardic on arrival which did improve with IV fluids, he has significant electrolyte derangements and will require prolonged rehydration and rechecks warranting admission, the patient is recommended for CT to search for possible malignancy due to his general health status but he refuses due to anxiety over going through the machine. I did present the case to Dr. Becerra had [id number] who accepted for admission, the patient wishes to be DNR, he does live at home. Findings not consistent with unstable arrhythmia, sepsis, ACS, respiratory distress. Disposition of Dehydration, Hypermagnesemia. Patient verbalized understanding of the plan and return to ED criteria and engaged in shared decision making. Medical Records Medical records reviewed: Yes I reviewed the patient's medical records. Imaging Data Radiologic Study: Attestation: I personally reviewed and interpreted this imaging study as follows: Imaging: CT Scan Lab Data Lab results reviewed: Yes I reviewed the patient's lab results. Labs: 04/20/25 13:25 Blood Blood Culture - Pending 04/20/25 13:12 Blood Blood Culture - Pending Laboratory Tests Range/Units 04/20/25 13:25 WBC (4.4-10.8) 10^3/uL 11.60 H RBC (4.36-5.78) 10^6/uL 5.67 Hgb (13.5-17.5) g/dL 17.1 Hct (40.0-50.0) % 52.7 H MCV (80-95) fL 93 MCH (27.0-33.0) pg 30.2 MCHC (32.0-36.0) % 32.4 RDW (11.8-14.1) % 13.3 Plt Count (130-400) 10^3/uL 270 MPV (8.0-11.0) fL 10.8 Immature Gran % % 0.3 Neutrophils % % 78.3 Lymphocytes % % 13.2 Monocytes % % 7.6 Eosinophils % % 0.3 Basophils % % 0.3 Nucleated RBC % (0.0-0.3) % 0.0 Absolute Neutrophils (1.2-6.7) 10^3/uL 9.08 H Absolute Lymphocytes (1.2-3.4) 10^3/uL 1.53 Absolute Monocytes (0.1-0.8) 10^3/uL 0.88 H Absolute Eosinophils (0.0-0.7) 10^3/uL 0.03 Absolute Basophils (0.0-0.2) 10^3/uL 0.03 VBG Lactate (<or=2.0) mmol/L 2.5 H* Sodium (136-145) mmol/L 155 H Potassium (3.5-5.1) mmol/L 3.8 Chloride (98-107) mmol/L 109 H Carbon Dioxide (21.0-32.0) mmol/L 27.3 Anion Gap (3-11) mmol/L 18.7 H BUN (7-18) mg/dL 90 H* Creatinine (0.70-1.30) mg/dL 1.9 H Est GFR (CKD-EPI 2020) (mL/min/1.73m2) 38.19 Glucose (74-106) mg/dL 107 H Calcium (8.5-10.1) mg/dL 10.8 H Magnesium (1.8-2.4) mg/dL 3.3 H Total Bilirubin (0.2-1.0) mg/dL 1.1 H AST (15-37) U/L 20 ALT (16-63) U/L 18 Alkaline Phosphatase (46-116) U/L 42 L Troponin I (<or=76) ng/L 34 Total Protein (6.4-8.2) g/dL 9.5 H Albumin (3.4-5.0) g/dL 5.0 Lipase (<78) U/L 75 TSH (0.36-3.74) uIU/mL 2.24 PFSH All Active Problems (Updated 04/20/25 @ 15:09 by JAMIE Portillo) Hypermagnesemia (Acute) Acute dehydration (Acute) Elevated PSA (Acute) BPH loc w/o ur obs/LUTS (Acute) Losing weight (Acute) Cholelithiasis without cholecystitis (Acute) Bipolar 1 disorder (Chronic 2019) Managed with clonazepam; psychiatrist in [place] Hypertension (Chronic) good control with Ramipril; adverse effects with amlodipine. Unable to tolerate ramipril Medical History (Updated 04/20/25 @ 15:09 by JAMIE Portillo) Hx of gastroesophageal reflux (GERD) resolved with weight loss Hx of sleep apnea resolved with weight loss Surgical History (Updated 11/17/24 @ 16:45 by Simona Caputo RN) History of mandibular surgery (~1997) mandible advancement for sleep apnea, [facility] Family History (Updated 11/21/24 @ 11:35 by Delia Jones MD) Mother Heart disease Father Heart disease Brother Heart disease Brother Parkinson disease Atrial fibrillation Social History (Updated 05/14/25 @ 17:09 by Renita Anna Smoking/Tobacco Use Status: Never Second Hand Exposure: Yes Smoking risk assessment performed?: Yes Alcohol Intake: former Year quit: 1999 Drug use: Never Substance use type: does not use Counseling given: No Adopted: No Caregiver/Support person: No Household members: family Housing: apartment Number of Children: 0 Communication Needs: None Education Level: college Do you need help understanding health information?: Never current occupation: retired, varied jobs Sexually active: No Current gender identity: male What is your relationship status?: never How often do you talk on the phone with friends or family?: three or more times per week How often do you get together with friends or relatives?: three or more times per week How often do you attend yazdanism or congregational services?: 4 or more times per year Do you belong to any clubs or organized social groups?: decline to answer Panel score (0-1 are the most socially isolated patients): 2 NHANES result reviewed/action taken: Yes What type of physical activity do you participate in: walking, bicycling and other Details: hiking, pushups, sit ups, crunches, squats Duration: 45-60 minutes/day Frequency: daily Delia/Voodoo: Nondenominational Special delia needs: No Seatbelt use: always 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
[2025-04-20 13:37] LABS: Abs Immature Grans 0.04 10^3/uL (0.0-0.06); HCT 52.7 % (40.0-50.0); HGB 17.1 g/dL (13.5-17.5); Immature Grans % 0.3 %; MCH 30.2 pg (27.0-33.0); MCHC 32.4 % (32.0-36.0); MCV 93 fL (80-95); MPV 10.8 fL (8.0-11.0); Platelet Count 270 10^3/uL (130-400); RBC 5.67 10^6/uL (4.36-5.78); RDW 13.3 % (11.8-14.1); RDW-SD 45.1 fL; WBC 11.60 10^3/uL (4.4-10.8)
[2025-04-20] MEDS: Lactated Ringers 1,000 ML 150 ML IV ×2 (13:47→23:12)
[2025-04-20 14:18] LABS: ALT 18 U/L (16-63); AST 20 U/L (15-37); Albumin 5.0 g/dL (3.4-5.0); Alkaline Phosphatase 42 U/L (46-116); Anion Gap 18.7 mmol/L (3-11); Bilirubin, Total 1.1 mg/dL (0.2-1.0); CO2 27.3 mmol/L (21.0-32.0); Calcium 10.8 mg/dL (8.5-10.1); Chloride 109 mmol/L (98-107); Estimated GFR 38.19 (mL/min/1.73m2); Glucose 107 mg/dL (74-106); Lipase 75 U/L (<78); Magnesium 3.3 mg/dL (1.8-2.4); Potassium 3.8 mmol/L (3.5-5.1); Sodium 155 mmol/L (136-145); TSH (W/Ref FT4) 2.24 uIU/mL (0.36-3.74); Total Protein 9.5 g/dL (6.4-8.2); Troponin I 34 ng/L (<or=76)
[2025-04-20 14:21] LABS: BUN 90 mg/dL (7-18)
--- NOTE | 2025-04-20 16:58 | PCNE_ITS ---
Date of service: 04/20/25 Time of Service: 15:30 History of Present Illness Narrative: Mr. Walton is a 65 y/o M currently hospitalized at [facility] 2/2 MALVIN and malnourishment; PMHx sig for Bipolar d/o; recent elevated PSA nad hematuria, w/sig weight loss Anton presented to ED today w/CC weakness at home after 5-10d of not eating or drinking; now that he has been evaluated in ED he is feeling better, is receiving LR; Anton lives in [facility] w/brother Marcelino, KEVIN Alicia and nephew Marvin; Alicia helps him the most; Marcelino has Parkinson's and Marvin has some mental health things going on. Anton is worried that Alicia has a lot on her plate He typically takes care of himself Anton denies pain, denies issues w/chewing or swallowing. He has not had an appetite, and then was also thinking that this body would tell him what it needed, so he did not eat or drink bc it wasn't making him feel well. he is aware he went into ketosis, and has had a coin flavor in his mouth for days. he felt bloated with water, and then worried about overhydrating and refeeding syndrome. he last made urine this morning at home. he does not recall when his last BM was. In October he suffered for 3 mos with an impending fear of doom, feeling like he was dying. presented to ED x3, w/no acute findings, nothing wrong; this feels concerning to him today, because now he is hearing there are things wrong. he is connected w/a psych provider, Kd Sanchez he has a history of a negative experience w/imaging and is refusing imaging today, would prefer to go slow and see how he feels w/rehydration and potential oral intake he would like to see what the hospitalists say and consider treatment to stay alive based on what htey are finding. he would want to reintroduce slowly, to make sure he feels comfortable, but does like the idea of a candy bar today. he would like some ronni sherry today He would not want to treat cancer if he had cancer, but would want to know. he likes honesty in conversations and wants to make sure his physical health is not overshadowed by his mental health diagnosis. he would want to donate his body post mortem he would trust Alicia to help him make medical decisions if he needed it. he is requesting to be a DNR/I, he would not want a breathing tube for any length of time, he would want a natural if his heart were to stop Assessment and Plan Assessment and plan (1) Acute dehydration: Status: Acute Assessment and plan: LR running at time of visit continue gentle rehydration; encouraged resume oral intake (2) Elevated PSA: Status: Acute Assessment and plan: need for further f/u refused CT today, continue to review would not want treatment for cancer if had it, would want to know dx (3) Bipolar 1 disorder: Status: Chronic Assessment and plan: f/b psych provider (4) Unintentional weight loss: Status: Acute Assessment and plan: 149lbs 01/02/25, 112lbs today - 5-10days w/o oral intake encouraged gentle slow start, reintroducing bland foods, clear liquids, slowly; but also, if would like to try a candy bar, that is okay too! (5) ACP (advance care planning): Status: Acute Assessment and plan: reviewed POC: would want to remain hospitalized at this time and receive treatment to get better, stay alive; get better w/electrolyte, dehydration, malnourishment correction; reviewed concerns that may have malignancy and first steps would be imaging; he does not want this today, may reconsider in future, consider pre-medication; consider CEA lab vs imaging reviewed preferences for HCA, stated Alicia will follow up and compete HCA as appropriate reviewed and completed front side of COLST to reflect preferences for DNR/I; okay w/IVF, nutrition if indicated spent 30m w/ACP (6) Palliative care encounter: Status: Acute Assessment and plan: PC will continue to follow, plan for f/u inpatient on Sun, anticipate he will remain inpatient thru this time - f/u complete HCA, review work up preferences and updates from hospital course Anton is hospice eligible at this time for weight loss alone, suspect there may be a malignant source, may confirm w/CEA/PSA labs or imaging if allowed; if he wants to discharge from hospital prior to medically cleared, could be supported w/hospice in home, as he may be interested in this path Review of Systems Narrative: as per HPI PFSH All Active Problems (Updated 04/20/25 @ 17:11 by Beena Combs NP) Palliative care encounter (Acute) ACP (advance care planning) (Acute) Unintentional weight loss (Acute) Hypermagnesemia (Acute) Acute dehydration (Acute) Elevated PSA (Acute) BPH loc w/o ur obs/LUTS (Acute) Losing weight (Acute) Cholelithiasis without cholecystitis (Acute) Bipolar 1 disorder (Chronic 2020) Managed with clonazepam; psychiatrist in [place] Hypertension (Chronic) good control with Ramipril; adverse effects with amlodipine. Unable to tolerate ramipril Medical History (Updated 04/20/25 @ 17:11 by Beena Combs NP) Hx of gastroesophageal reflux (GERD) resolved with weight loss Hx of sleep apnea resolved with weight loss Surgical History (Updated 11/17/24 @ 16:45 by Simona Caputo RN) History of mandibular surgery (~1997) mandible advancement for sleep apnea, [facility] Family History (Updated 11/21/24 @ 11:35 by Delia Jones MD) Mother Heart disease Father Heart disease Brother Heart disease Brother Parkinson disease Atrial fibrillation Social History (Updated 03/04/25 @ 17:09 by Renita Flores) Smoking/Tobacco Use Status: Never Second Hand Exposure: Yes Smoking risk assessment performed?: Yes Alcohol Intake: former Year quit: 1999 Drug use: Never Substance use type: does not use Counseling given: No Adopted: No Caregiver/Support person: No Household members: family Housing: apartment Number of Children: 0 Communication Needs: None Education Level: college Do you need help understanding health information?: Never current occupation: retired, varied jobs Sexually active: No Current gender identity: male What is your relationship status?: never How often do you talk on the phone with friends or family?: three or more times per week How often do you get together with friends or relatives?: three or more times per week How often do you attend cheondoism or confucianism services?: 4 or more times per year Do you belong to any clubs or organized social groups?: decline to answer Panel score (0-1 are the most socially isolated patients): 2 NHANES result reviewed/action taken: Yes What type of physical activity do you participate in: walking, bicycling and other Details: hiking, pushups, sit ups, crunches, squats Duration: 45-60 minutes/day Frequency: daily Delia/Restorationist: Amish Special delia needs: No Seatbelt use: always 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 Firearms in home: No Do you feel safe at home: Yes Do you feel safe in your relationship?: Yes Exam Narrative Exam Narrative: General: 65 y/o frail cachectic appearing male; AAOx3 HEENT: temporal wasting, atraumatic; dry MM w/skin peeling and plaque build up Resp: even and unlabored, speaks full rapid sentences w/o SOB; no cough, no audible wheeze Skin: atrophy, thin Neuro: CNII- intact bilat; ind transfer WC to bed Psych: pleasant, cooperative, thought process impoverished; anxious, tangential, perseverating, insight/judgment limited Results Last Vital Signs Temp 97.7 F 04/20/25 13:15 Pulse 83 04/20/25 15:10 Resp 15 04/20/25 15:10 BP 166/109 H 04/20/25 15:01 Pulse Ox 99 04/20/25 15:10 Labs 04/20/25 13:25 04/20/25 13:25 Labs: Laboratory Results - last 24 hr 04/20/25 13:25 WBC 11.60 H RBC 5.67 Hgb 17.1 Hct 52.7 H MCV 93 MCH 30.2 MCHC 32.4 RDW 13.3 Plt Count 270 MPV 10.8 Immature Gran % 0.3 Neutrophils % 78.3 Lymphocytes % 13.2 Monocytes % 7.6 Eosinophils % 0.3 Basophils % 0.3 Nucleated RBC % 0.0 Absolute Neutrophils 9.08 H Absolute Lymphocytes 1.53 Absolute Monocytes 0.88 H Absolute Eosinophils 0.03 Absolute Basophils 0.03 VBG Lactate 2.5 H* Sodium 155 H Potassium 3.8 Chloride 109 H Carbon Dioxide 27.3 Anion Gap 18.7 H BUN 90 H* Creatinine 1.9 H Est GFR (CKD-EPI 2020) 38.19 Glucose 107 H Calcium 10.8 H Magnesium 3.3 H Total Bilirubin 1.1 H AST 20 ALT 18 Alkaline Phosphatase 42 L Troponin I 34 Total Protein 9.5 H Albumin 5.0 Lipase 75 TSH 2.24 Time Spent Time Spent with Patient Time Spent(min): 70
[2025-04-20] MEDS: Enoxaparin 30 MG/0.3 ML SYR SC (17:40)
--- NOTE | 2025-04-20 19:06 | W.PM.HP.N ---
Date of service: 04/20/25 Time of Service: 16:00 Assessment and Plan Assessment and plan (1) Acute dehydration: Status: Acute Assessment and plan: Continue rehydration with LR and encourage gentle resumption of oral intake. Offer and encourage oral fluids (2) MALVIN (acute kidney injury): Status: Acute Assessment and plan: Cr 1.9 Continue IVF Trend Hold nephrotoxic drugs (3) Hypernatremia: Status: Acute Assessment and plan: 155 - dehydrated Continue LR IV (4) Unintentional weight loss: Status: Acute Assessment and plan: Has been avoiding medications due to negative side effects, as he feels they are not helpful. Lives with his brother Patient has chosen not to eat as he feels that eating is making him more sick. Recommend slow reintroduction of food, starting with bland foods and clear liquids. (5) Hypermagnesemia: Status: Acute Assessment and plan: Mag 3.3 - trend (6) Bipolar 1 disorder: Status: Chronic Assessment and plan: Has been avoiding medications due to negative side effects, as he feels they are not helpful. Psych consult Reinforce need for medication History of Present Illness Narrative: A 65-year-old male presents with weakness, reported by his , after not eating for the past 5-10 days due to a burning sensation while eating. The patient describes no chest or abdominal pain, but has mild shortness of breath, cough, fever, vomiting, and diarrhea. He denies significant provoking or palliative factors and does not typically see a doctor. The patient has a history of GERD, bipolar, hypertension, BPH, and unintentional weight loss. He has been extremely frail, cachectic, and is not taking any medications. He is tachycardic and shows signs of significant dehydration upon examination. Patient reports a history of significant weight loss, having dropped from 149 lbs in December 2024 to 112 lbs today. He has been experiencing bloating, ketosis, and a coin-like taste in his mouth. He has concerns about refeeding syndrome and dehydration but has seen some improvement since being rehydrated with LR fluids. He has been feeling a sense of impending doom since October, but with no acute findings at that time. He does not recall when his last bowel movement was but reported urinating this morning. He has a preference for slow reintroduction of food, and today he requests a candy bar and ronni sherry. He has concerns about cancer but would not want to pursue treatment if diagnosed, though he would want to know the diagnosis. His lab results reveal electrolyte derangements, including hypermagnesemia, elevated sodium, and renal dysfunction (BUN 90, creatinine 1.9). Other findings include leukocytosis and elevated lactate (2.5), suggesting dehydration. A troponin level of 34 was noted, though there are no signs of ischemia. The patient refused further CT studies due to anxiety. Differential diagnoses include malignancy, malnutrition, GERD, dehydration, sepsis, and gastrointestinal issues. He was admitted for rehydration and further management, and his DNR status was discussed with the patient and family. Review of Systems Narrative: General: Reports 5?10 days of poor oral intake with associated weakness. Denies fever or chills GI: Denies abdominal pain, nausea, vomiting, or dysphagia. Reports early satiety, bloating, and no bowel movement in several days. : Last urinated this morning. Reports decreased urine output. Neuro: Denies dizziness or focal weakness. Alert and oriented. Psych: Reports anxiety, tangential thinking, and recent fear of impending doom. Followed by psychiatry. Respiratory: Denies shortness of breath, cough, or wheezing. Cardiac: Denies chest pain or palpitations. PFSH All Active Problems (Updated 04/20/25 @ 19:23 by Emi Bansal NP) MALVIN (acute kidney injury) (Acute) Hypernatremia (Acute) Palliative care encounter (Acute) ACP (advance care planning) (Acute) Unintentional weight loss (Acute) Hypermagnesemia (Acute) Acute dehydration (Acute) Elevated PSA (Acute) BPH loc w/o ur obs/LUTS (Acute) Losing weight (Acute) Cholelithiasis without cholecystitis (Acute) Bipolar 1 disorder (Chronic 2019) Managed with clonazepam; psychiatrist in [place] Hypertension (Chronic) good control with Ramipril; adverse effects with amlodipine. Unable to tolerate ramipril Medical History (Updated 04/20/25 @ 19:23 by Emi Bansal NP) Hx of gastroesophageal reflux (GERD) resolved with weight loss Hx of sleep apnea resolved with weight loss Surgical History (Updated 11/17/24 @ 16:45 by Simona Caputo RN) History of mandibular surgery (~1997) mandible advancement for sleep apnea, [facility] Family History (Updated 11/21/24 @ 11:35 by Delia Jones MD) Mother Heart disease Father Heart disease Brother Heart disease Brother Parkinson disease Atrial fibrillation Social History (Updated 03/04/25 @ 17:09 by Renita Flores) Smoking/Tobacco Use Status: Never Second Hand Exposure: Yes Smoking risk assessment performed?: Yes Alcohol Intake: former Year quit: 1999 Drug use: Never Substance use type: does not use Counseling given: No Adopted: No Caregiver/Support person: No Household members: family Housing: apartment Number of Children: 0 Communication Needs: None Education Level: college Do you need help understanding health information?: Never current occupation: retired, varied jobs Sexually active: No Current gender identity: male What is your relationship status?: never How often do you talk on the phone with friends or family?: three or more times per week How often do you get together with friends or relatives?: three or more times per week How often do you attend advent or restorationist services?: 4 or more times per year Do you belong to any clubs or organized social groups?: decline to answer Panel score (0-1 are the most socially isolated patients): 2 NHANES result reviewed/action taken: Yes What type of physical activity do you participate in: walking, bicycling and other Details: hiking, pushups, sit ups, crunches, squats Duration: 45-60 minutes/day Frequency: daily Delia/Confucianism: Jain Special delia needs: No Seatbelt use: always Drive intox 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 Firearms in home: No Do you feel safe at home: Yes Do you feel safe in your relationship?: Yes Meds Allergies and Home Medications Allergies Allergy/AdvReac Type Severity Reaction Status Date / Time amlodipine AdvReac Intermediate Abdominal Unverified 04/20/25 13:15 pain Home Medications ?Medication ?Instructions ?Recorded ?Confirmed ?Type clonazepam 1 mg tablet 1 mg PO TID 10/29/24 04/20/25 History tetanus-diphtheria toxoids-Td 2 Lf 0.5 ml IM ONCE #0.5 mL 03/04/25 04/20/25 Rx unit-2 Lf unit/0.5 mL IM suspension Exam Narrative Exam Narrative: General: 65-year-old male, frail, cachectic appearance. Mild acute distress. HEENT: Temporal wasting, dry mucous membranes with skin peeling. Respiratory: Even, unlabored breathing, speaks full sentences without shortness of breath. No cough or wheeze. Cardiovascular: Regular heart rate and rhythm, no murmurs, no JVD, no peripheral edema. Abdomen: Soft, non-distended, sunken due to cachexia, no tenderness or guarding. Neurological: Cranial nerves II- intact. No focal neurological deficits. Requires assistance with transfers. Psychiatric: Cooperative, anxious, thought process impoverished, limited insight and judgment. Results Labs 04/20/25 13:25 04/20/25 13:25 Labs: Laboratory Results - last 24 hr 04/20/25 13:25 WBC 11.60 H RBC 5.67 Hgb 17.1 Hct 52.7 H MCV 93 MCH 30.2 MCHC 32.4 RDW 13.3 Plt Count 270 MPV 10.8 Immature Gran % 0.3 Neutrophils % 78.3 Lymphocytes % 13.2 Monocytes % 7.6 Eosinophils % 0.3 Basophils % 0.3 Nucleated RBC % 0.0 Absolute Neutrophils 9.08 H Absolute Lymphocytes 1.53 Absolute Monocytes 0.88 H Absolute Eosinophils 0.03 Absolute Basophils 0.03 VBG Lactate 2.5 H* Sodium 155 H Potassium 3.8 Chloride 109 H Carbon Dioxide 27.3 Anion Gap 18.7 H BUN 90 H* Creatinine 1.9 H Est GFR (CKD-EPI 2020) 38.19 Glucose 107 H Calcium 10.8 H Magnesium 3.3 H Total Bilirubin 1.1 H AST 20 ALT 18 Alkaline Phosphatase 42 L Troponin I 34 Total Protein 9.5 H Albumin 5.0 Lipase 75 TSH 2.24 Last Vital Signs Temp 36.4 C L 04/20/25 17:05 Pulse 83 04/20/25 17:05 Resp 15 04/20/25 17:05 BP 170/98 H 04/20/25 17:05 Pulse Ox 99 04/20/25 17:05 Time Spent Time spent with Patient: 55-74 minutes Time was spent: preparing to see the patient(eg.review tests), obtaining and/or reviewing separately otained hiistory, ordering medications,tests, procedures, referring, communicating with other health special needs caregiver, indepentently interpreting results, counseling the patient and care coordination
--- NOTE | 2025-04-21 | DI.CT_ITS ---
Exam(s) CT HEAD WO/W EXAM: CT HEAD WO/W CLINICAL HISTORY: 40# weight loss in 6 mos. TECHNIQUE: Imaging Protocol: Axial computed tomography images with coronal and sagittal reformatted images were created and reviewed. CONTRAST MATERIAL: Intravenous: Omnipaque 350 Contrast volume:100 ml COMPARISON: CT CT CHEST/ABD/PEL W from 04/21/2025 FINDINGS: Ventricles and Extra axial spaces: Normal in size and morphology for degree of atrophy. Hemorrhage: None. Cerebral parenchyma: Moderate diffuse atrophy. Mild white matter changes of small vessel disease. Enhancement: No suspicious enhancement. Midline shift: None. Brainstem/Cerebellum: Normal. Calvarium: Normal. Visualized Paranasal sinuses/Mastoids: Clear. IMPRESSION: Moderate atrophy and mild microvascular changes. No evidence of mass or infarct. RADIATION DOSE DELIVERED: 427.85 mGy.cm Total DLP DATA REPOSITORY: All CT scans at this facility are submitted to the National Radiology Data Registry (NRDR) Dose Index Registry (DIR) with the [employer] (A[employer]). RADIATION OPTIMIZATION: All CT scans at this facility use at least one of these dose optimization techniques: automated exposure control; mA and/or kV adjustment per patient size (includes targeted exams where dose is matched to clinical indication); or iterative reconstruction.
--- NOTE | 2025-04-21 | DI.CT_ITS ---
Exam(s) CT CHEST/ABD/PEL W EXAM: CT CHEST/ABD/PEL W CLINICAL HISTORY: 40# weight loss in 6 mos. TECHNIQUE: Imaging Protocol: Axial computed tomography images with coronal and sagittal reformatted images were created and reviewed. Computer aided detection (CAD) was utilized. CONTRAST MATERIAL: Intravenous: Omnipaque 350 Contrast volume:100 ml Oral: / no COMPARISON: CT CT NECK CHEST ABD PEL W from 10/29/2024 FINDINGS: CHEST: Pulmonary parenchyma: moderate to severe chronic interstitial changes an apical pleural thickening. No consolidation. No dominant measurable mass. Tracheobronchial tree: No bronchiectasis. No mucous plugging.No bronchial wall thickening. Pleura: No effusion . Mediastinum: Extensive pneumomediastinum extending up into the neck and below the level of the diaphragm. Gas also tracks around the upper right chest wall. Pulmonary arteries: No visible emboli. Normal diameter. Cardiovascular: The heart size is normal. Coronary artery calcifications are present. No pericardial effusion. Thoracic aorta non-dilated. Bones: Unremarkable for age. No lytic or blastic lesions.No compression fractures. Soft tissues: Unremarkable. ABDOMEN and PELVIS: Liver: Normal density. No suspicious mass. Gallbladder and biliary tract: No evidence of stones or wall thickening. No biliary dilatation. Pancreas: Normal density, no abnormal calcifications or inflammatory process. Spleen: Normal. Kidneys: Normal size, contour and axis. No radiodense stones. No obstructive uropathy. No suspicious masses seen. Adrenal glands: No masses seen. Aorta: Abdominal portion non-dilated. Lymph nodes: Within normal limits. Soft tissues: Unremarkable. Bladder: Unremarkable. Bowel: No obstruction or bowel wall thickening. Large quantity stool is noted, particularly in the ascending through transverse colon and rectum. The bowel is not well evaluated due to paucity of intra-abdominal fat and lack of oral contrast. Peritoneal cavity: No ascites. No focal collection. No mesenteric inflammatory response. No free air. Bones: Unremarkable for age. Reproductive organs: Unremarkable for age. IMPRESSION: Severe pneumomediastinum. Chronic interstitial pulmonary disease. No evidence of mass in the chest abdomen or pelvis. Large quantity of stool. Bowel difficult to evaluate due to paucity of intra- abdominal fat and lack of oral contrast. Findings called to the hospitalist after completion of the exam. RADIATION DOSE DELIVERED: 559.1 mGy.cm Total DLP DATA REPOSITORY: All CT scans at this facility are submitted to the National Radiology Data Registry (NRDR) Dose Index Registry (DIR) with the [employer] (ACR). RADIATION OPTIMIZATION: All CT scans at this facility use at least one of these dose optimization techniques: automated exposure control; mA and/or kV adjustment per patient size (includes targeted exams where dose is matched to clinical indication); or iterative reconstruction.
--- NOTE | 2025-04-21 | DI.RAD_ITS ---
Exam(s) RF BARIUM SWALLOW EXAM: RF BARIUM SWALLOW CLINICAL HISTORY: severe pneumomediastinum TECHNIQUE: 2D and realtime digital imaging was performed. CONTRAST MATERIAL: Thick and thin barium and barium tablet were administered. COMPARISON: CT CT CHEST/ABD/PEL W from 04/21/2025 FINDINGS: The PA and lateral chest films show pneumomediastinum extending up into the neck. The lateral recorder helper seismograph view of the neck is shows pneumomediastinum extending up to the level of the skull base in the retropharyngeal region. Esophagus: The patient swallowed barium without difficulty. Noevidence for mucosal erosions. Nofold thickening. No mass is visible. Nostricture. No evidence of aspiration. Motility: There is a normal primary stripping wave. No tertiary contractions were noted. There is no hiatal hernia. Nogastroesophageal reflux was observed during the exam. IMPRESSION: Normal barium swallow. No evidence esophageal perforation or ulcer. RADIATION DOSE DELIVERED: Ka,r=9.47 mGy
[2025-04-21 03:52] VITALS: BP 122/58; PULSE 74; RESP 18; TEMP 36.8; O2SAT 95
[2025-04-21] MEDS: Lactated Ringers 1,000 ML 150 ML IV ×2 (05:40→23:17)
[2025-04-21 06:30] LABS: Abs Immature Grans 0.04 10^3/uL (0.0-0.06); HCT 40.7 % (40.0-50.0); HGB 13.4 g/dL (13.5-17.5); Immature Grans % 0.5 %; MCH 30.5 pg (27.0-33.0); MCHC 32.9 % (32.0-36.0); MCV 93 fL (80-95); MPV 10.9 fL (8.0-11.0); Platelet Count 180 10^3/uL (130-400); RBC 4.40 10^6/uL (4.36-5.78); RDW 13.1 % (11.8-14.1); RDW-SD 44.7 fL; WBC 8.61 10^3/uL (4.4-10.8)
[2025-04-21 07:08] LABS: Anion Gap 8.7 mmol/L (3-11); BUN 68 mg/dL (7-18); CO2 31.3 mmol/L (21.0-32.0); Calcium 9.5 mg/dL (8.5-10.1); Chloride 113 mmol/L (98-107); Estimated GFR 60.21 (mL/min/1.73m2); Glucose 97 mg/dL (74-106); Magnesium 2.6 mg/dL (1.8-2.4); Potassium 3.6 mmol/L (3.5-5.1); Sodium 153 mmol/L (136-145)
[2025-04-21 08:15] VITALS: BP 125/90; PULSE 82; RESP 16; TEMP 36.9; O2SAT 98
--- NOTE | 2025-04-21 08:59 | PDOC.CMIN ---
Date of service: 04/21/25 Time of Service: 09:00 Care Management Initial Assmt Initial Assessment Reason for Hospitalization: acute dehydration Functional Status/Living Situation Patient Presentation: Anton was sitting up in the bedside chair when CM met with him today. He was very pleasant, and quite talkative. Anton presented to the ED yesterday afternoon with c/o weakness, not eating for 5-10 days due to a burning sensation while eating. Anton stated that he was very uncomfortable when eating, he would get heart burn and a lump in his throat, so he just stopped eating and the pain went away. Yesterday, he was so weak he could barely walk, and he knew something was wrong. He is starting to feel better with fluids and has been eating. He is looking forward to peanut butter sandwiches [employer]. Anton lives with his brother, who has advanced Parkinsons and is mainly bed bound. He also lives with his sister in law and adult nephew. His nephew has Rich syndrome and is intellectually disabled. Town of Residence: [facility] Resides with: Other (brother, Marcelino, sister in law, Alicia, and nephew, Marvin) Natural Supports: family Employment Status: Disabled Instrumental Activities of Daily Living (ADLs): Independent Activities/Hobbies/SocialSupport: has not been doing much of anything lately Advance Directives Advance Directives: Do you have an Advance Directive: AD On File at [facility]: N 10/29/24, 15:05 Date Asked 01/02/25 02/06/25, 15:46 AD Date Reviewed COLST On File at [facility] COLST Date Scanned Code Status Resuscitation Status DNR/DNI Insurance Coverage/Financial Issues Insurance: Medicare Part A & B Care Team Visit Care Team Role Provider Type Emi Bansal NP MD [facility] STAFF PHYSICIAN Sha Hillman NP Primary Care Provider NURSE PRACTITIONER JAMIE Portillo Emergency Provider [facility] [employer] Bang Becerra MD Admit Provider [facility] STAFF PHYSICIAN Attending Provider Discharge Potential Discharge Needs: PCP F/U Appt Anticipated Barriers to Discharge: None Identified Patient/Family Education Needs: Review discharge instructions, discuss Ask Me Three Transportation: Private vehicle Plan: Anticipate that Anton will return home with no new services. He will f/u with his PCP and continue per his plan of care. Anton will transport home with family. CM will continue to follow. Social Determinants of Health Screening Social Determinants of health last assessed in clinic: 04/21/25 Will the Patient Participate in the Screening?: Yes Do you worry about having a steady place to live?: no Problems where you live: no known problems In the past 12 months, have you had to go without electric, gas, oil or water in your home?: no 1. Within the past 12 months, we worried whether our food would run out before we got money to buy more.: Don't know/refused 2. Within the past 12 months, the food we bought just didn't last and we didn't have money to get more.: Don't know/refused Has lack of transportation kept you from medical appointments or from doing things needed for daily living?: no Has anyone in your life made you feel unsafe or unsupported?: no How hard is it for you to pay for the very basics like food, housing, medical care, and heating? Would you say it is:: Not hard at all Do you want help finding or keeping work or a job?: I do not need or want help If for any reason you need help with day-to-day activities such as bathing, preparing meals, shopping, managing finances, etc., do you get the help you need?: I don?t need any help How often do you feel lonely or isolated from those around you?: Never Do you speak a language other than Ghanaian at home?: No Does the patient want assistance with any of the above?: No PFSH All Active Problems (Updated 04/20/25 @ 19:23 by Emi Bansal NP) MALVIN (acute kidney injury) (Acute) Hypernatremia (Acute) Palliative care encounter (Acute) ACP (advance care planning) (Acute) Unintentional weight loss (Acute) Hypermagnesemia (Acute) Acute dehydration (Acute) Elevated PSA (Acute) BPH loc w/o ur obs/LUTS (Acute) Losing weight (Acute) Cholelithiasis without cholecystitis (Acute) Bipolar 1 disorder (Chronic 2020) Managed with clonazepam; psychiatrist in [place] Hypertension (Chronic) good control with Ramipril; adverse effects with amlodipine. Unable to tolerate ramipril Medical History (Updated 04/20/25 @ 19:23 by Emi Bansal NP) Hx of gastroesophageal reflux (GERD) resolved with weight loss Hx of sleep apnea resolved with weight loss Surgical History (Updated 11/17/24 @ 16:45 by Simona Caputo RN) History of mandibular surgery (~1997) mandible advancement for sleep apnea, [facility] Family History (Updated 11/21/24 @ 11:35 by Delia Jones MD) Mother Heart disease Father Heart disease Brother Heart disease Brother Parkinson disease Atrial fibrillation Social History (Updated 03/04/25 @ 17:09 by Renita Flores) Smoking/Tobacco Use Status: Never Second Hand Exposure: Yes Smoking risk assessment performed?: Yes Alcohol Intake: former Year quit: 1999 Drug use: Never Substance use type: does not use Counseling given: No Adopted: No Caregiver/Support person: No Household members: family Housing: apartment Number of Children: 0 Communication Needs: None Education Level: college Do you need help understanding health information?: Never current occupation: retired, varied jobs Sexually active: No Current gender identity: male What is your relationship status?: never How often do you talk on the phone with friends or family?: three or more times per week How often do you get together with friends or relatives?: three or more times per week How often do you attend buddhism or catholic services?: 4 or more times per year Do you belong to any clubs or organized social groups?: decline to answer Panel score (0-1 are the most socially isolated patients): 2 NHANES result reviewed/action taken: Yes What type of physical activity do you participate in: walking, bicycling and other Details: hiking, pushups, sit ups, crunches, squats Duration: 45-60 minutes/day Frequency: daily Delia/Catholic: Church Special delia needs: No Seatbelt use: always Drive intox or ride w/intox party bus driver: No Firearms in home: No Do you feel safe at home: Yes Do you feel safe in your relationship?: Yes
--- NOTE | 2025-04-21 11:20 | PHA.REVIEW2 ---
Pharmacy Admission Review Admission Clinical Review Admission Pharmacy Review: MALVIN (acute kidney injury) (Acute) Hypernatremia (Acute) Palliative care encounter (Acute) ACP (advance care planning) (Acute) Unintentional weight loss (Acute) Hypermagnesemia (Acute) Acute dehydration (Acute) Elevated PSA (Acute) amlodipine Adverse Reaction (Intermediate, Unverified 04/20/25 13:15) Abdominal pain Resuscitation Status DNR/DNI Height 5 ft 7 in Weight 51 kg Pharmacy Admission Review Renal Dosing Renal Dosing: BUN 68 mg/dL (7-18) H 04/21/25 06:09 Creatinine 1.3 mg/dL (0.70-1.30) 04/21/25 06:09 Medications needing adjustments: Reviewed (recommended to increase enoxaparin from 30mg to 40mg daily d/t renal function improving. Crcl=39ml/min today. Scr=1.3 from 1.9. ) Anticoagulation Anticoagulation: Hgb 13.4 g/dL (13.5-17.5) L D 04/21/25 06:09 Hct 40.7 % (40.0-50.0) 04/21/25 06:09 Plt Count 180 10^3/uL (130-400) 04/21/25 06:09 Creatinine 1.3 mg/dL (0.70-1.30) 04/21/25 06:09 Medications: Enoxaparin Opiate Usage Evaluate Pain Scale/Pains Meds: N/A Relevant Labs Relevant Labs: Sodium, magnesium, Scr improving from yesterday (trending down). Sodium 153 mmol/L (136-145) H 04/21/25 06:09 Potassium 3.6 mmol/L (3.5-5.1) 04/21/25 06:09 Chloride 113 mmol/L (98-107) H 04/21/25 06:09 Magnesium 2.6 mg/dL (1.8-2.4) H 04/21/25 06:09 Electrolytes, C-Reactive P, ESR: Reviewed DM Control DM Control: Reviewed Cardiac Review Cardiac Review: NO INTERVENTION Troponin I 34 ng/L (<or=76) 04/20/25 13:25 BP, HR, EF%: Reviewed QTc Review QTc: Reviewed List meds needing interventions: QTC 460. NO INTERVENTION. IV to PO Switch IV Medications: Reviewed Home Meds Home Med List reviewed: Reviewed Pharmacy Antibiotic Review Relevant Labs: NO ANTIBIOTICS AT THIS TIME
[2025-04-21] MEDS: LORazepam 20 MG/10 ML VIAL IVP (11:33)
[2025-04-21 11:52] VITALS: BP 119/85; PULSE 88; RESP 16; TEMP 36.6; O2SAT 98
--- NOTE | 2025-04-21 12:01 | PGE_ITS ---
Date of Service Date of service: 04/21/25 Time of Service: 12:01 Assessment and Plan Assessment and plan (1) Acute dehydration: Status: Acute Assessment and plan: Continue rehydration with LR and encourage oral fluids and meals - offer snacks Patient has been eating today and drinking fluids. His electrolytes and kidney fxn have improved. (2) Pneumomediastinum: Status: Acute Assessment and plan: The patient consented to a CT scan, which revealed severe pneumomediastinum. The study was forwarded to [facility] for further evaluation. I consulted with Dr. Nilson Mathur from Thoracic Surgery, who noted that the patient is not septic, not vomiting, shows no signs of barotrauma, and has no evidence of systemic infection. He recommended a barium swallow to further evaluate the esophagus. A barium swallow was performed and showed no esophageal abnormalities. The study was also sent to [facility] for review. Based on the current findings, surgical intervention is not recommended. The plan is to manage the patient medically with IV antibiotics, continuing the treatment initiated last night. (3) MALVIN (acute kidney injury): Status: Acute Assessment and plan: Cr 1.3 down from 1.9 Continue IVF Trend Hold nephrotoxic drugs (4) Hypernatremia: Status: Acute Assessment and plan: 153 down from 155 - dehydrated Continue LR IV (5) Unintentional weight loss: Status: Acute Assessment and plan: Has been avoiding medications due to negative side effects, as he feels they are not helpful. Lives with his brother Patient has chosen not to eat as he feels that eating is making him more sick. Recommend slow reintroduction of food, starting with bland foods and clear liquids. Will attempt to contact patient's psychiatrist Arnaldo Mota [phone] and get some insight. Patient now agrees to CT scan - he was concerned about the cost - he discussed w CM and has agreed to testing. Lorazepam pre CT for anxiety (6) Hypermagnesemia: Status: Acute Assessment and plan: 2.6 down from Mag 3.3 - trend (7) Bipolar 1 disorder: Status: Chronic Assessment and plan: Has been avoiding medications due to negative side effects, as he feels they are not helpful. Will speak with his psychiatrist - I believe he is at baseline. He has declined clonazepam although it has been prescribed for him by his psychiatrist. Reinforce need for medication Subjective Subjective Patient reports: no new complaints, tolerating liquids well, tolerating a regular diet, voiding w/o difficulty, bowel movement and afebrile; denies diarrhea, nausea, vomiting or shortness of breath Interval history since last seen: Patient states he is feeling better today. He has been eating and drinking and has no nausea or vomiting. Patient has agreed to the CT scan after discussion with CM regarding cost/insurance/payments etc. Exam Narrative Exam Narrative: General: 65-year-old male, frail, cachectic appearance. No distress HEENT: Temporal wasting, dry mucous membranes with skin peeling. Respiratory: Even, unlabored breathing, speaks full sentences without shortness of breath. No cough or wheeze. Cardiovascular: Regular heart rate and rhythm, no murmurs, no JVD, no peripheral edema. Abdomen: Soft, non-distended, sunken due to cachexia, no tenderness or guarding. Neurological: Cranial nerves II- intact. No focal neurological deficits. Requires assistance with transfers. Psychiatric: Cooperative, anxious, thought process impoverished, limited insight and judgment. Objective Last Vital Signs Temp 36.6 C 04/21/25 11:52 Pulse 88 04/21/25 11:52 Resp 16 04/21/25 11:52 BP 119/85 04/21/25 11:52 Pulse Ox 98 04/21/25 11:52 Laboratory Results - last 24 hr 04/20/25 04/21/25 13:25 06:09 WBC 11.60 H 8.61 RBC 5.67 4.40 Hgb 17.1 13.4 L D Hct 52.7 H 40.7 MCV 93 93 MCH 30.2 30.5 MCHC 32.4 32.9 RDW 13.3 13.1 Plt Count 270 180 MPV 10.8 10.9 Immature Gran % 0.3 0.5 Neutrophils % 78.3 74.0 Lymphocytes % 13.2 15.6 Monocytes % 7.6 7.8 Eosinophils % 0.3 1.9 Basophils % 0.3 0.2 Nucleated RBC % 0.0 0.0 Absolute Neutrophils 9.08 H 6.38 Absolute Lymphocytes 1.53 1.34 Absolute Monocytes 0.88 H 0.67 Absolute Eosinophils 0.03 0.16 Absolute Basophils 0.03 0.02 VBG Lactate 2.5 H* Sodium 155 H 153 H Potassium 3.8 3.6 Chloride 109 H 113 H Carbon Dioxide 27.3 31.3 Anion Gap 18.7 H 8.7 BUN 90 H* 68 H Creatinine 1.9 H 1.3 Est GFR (CKD-EPI 2020) 38.19 60.21 Glucose 107 H 97 Calcium 10.8 H 9.5 Magnesium 3.3 H 2.6 H Total Bilirubin 1.1 H AST 20 ALT 18 Alkaline Phosphatase 42 L Troponin I 34 Total Protein 9.5 H Albumin 5.0 Lipase 75 TSH 2.24 Time Spent with Patient Time Spent with Patient: >50 minutes Time was spent: preparing to see the patient(eg.review tests), ordering medications,tests, procedures, referring, communicating with other health transitional care nurse, indepentently interpreting results, counseling the patient and care coordination
[2025-04-21] MEDS: Normal Saline - Diluent 50 ML VIAL IJ (12:21)
[2025-04-21] MEDS: Omnipaque 350 MG/ML 500 ML BTL-Imaging package 100 ML IJ (12:21)
[2025-04-21] MEDS: Normal Saline Flush 10 ML SYR (13:22)
[2025-04-21] MEDS: Senna TAB 1 TAB PO (13:22)
[2025-04-21] MEDS: Polyethylene Glycol 3350 17 GM PACKET PO (13:22)
[2025-04-21] MEDS: Bisacodyl 10 MG SUPP PR (14:31)
--- NOTE | 2025-04-21 15:09 | W.NUTRFU ---
Date of service: 04/21/25 Time of Service: 12:45 Nutrition Note NOTE: Anton being treated for pneumomediastinum - after CT and consulting it appears no surgical intervention required/planned at this time. will be on Abx. Also being treated for MALVIN/hypernatremia due to acute dehydration. Pt with a hx of Bipolar 1 disorder. HTN, weight loss. Anton on toilet when first visit attempted - he tried to have conversation with me while on the toilet - I insisted I would return shortly. I returned and spoke to him while he was sitting up in his bed. The conversation was difficult to follow and tease out what information was reliable or not. Anton was extremely talkative to the point I had difficulty asking any questions. He states he lives with partner (other notes say brother) and many times eating convenient [employer] foods. He states he was told he had metabolic syndrome over a year ago and went on keto diet and went from 263lbs to 160lbs in about a years time. He is currently 112lbs/51kg 04/20 on bed scale - this is his only weight this admission is is down 9kg since 03/04. Labs: 04/22 sodium 148, potassium 3.2, GFR 73.58, 04/20-> total protein 9.5, albumin wnl NFPE not performed, however obserable scooping to temporal region noted along with decreased SQ fat to orbital fat pads and buccal fat pads. Nutrition Dx: inadequate intake as evidenced by significant weight loss over the last month per weight hx. Recommend daily weights - standing scale if possible for accuracy Will provide preferred foods and encourage balanced meals. Nourishments to be proivided at 10:00, 14:00 and 17:00 as high protein ONS or kitchen-made shakes. Will monitor weight, nutrition-related labs, and po intake (consider calorie count if weight does not improve), and acceptance/preference of ONS offered at nourishments Time Spent in Nutritional Counseling and Treatment: 30 min
[2025-04-21] MEDS: Barium Sulfate 60% W/V 355 ML BTL PO (15:37)
[2025-04-21 15:49] VITALS: BP 113/90; PULSE 85; RESP 17; TEMP 36.4; O2SAT 100
--- NOTE | 2025-04-21 17:10 | CHAPLAIN ---
Anton was just finishing up a conversation with his Land Law Examiner Merline when I stopped in. He and Lilly are both from the [place] area and Anton was enjoying talking about restaurants and places around [place] with Merline. Anton told me that he lives with his brother who has Parkinson's and is bed bound and his sister in law. They live in an apartment near a carwash that is very noisy and Anton said he doesn't have a quiet place to sit and think. He would really like to have a porch to sit on. We talked about what brings him comfort and it's difficult for him to name that. He said when he feels more confident he is more out going and social, and he likes being social, but lately he has been more introverted. I will continue to visit.
[2025-04-21] MEDS: Enoxaparin 40 MG/0.4 ML SYR SC (17:40)
[2025-04-21] MEDS: PIPERACILLIN/TAZO 4.5 GM in Normal Saline 100 ML IVPB (20:37)
[2025-04-22] VITALS (9 sets, daily range): BP systolic 115–150; BP diastolic 68–103; PULSE 74–95; RESP 16–24; TEMP 36.2–36.7; O2SAT 96–100
[2025-04-22] MEDS: PIPERACILLIN/TAZO 3.375 GM in Normal Saline 50 ML IVPB (02:18)
[2025-04-22] MEDS: LORazepam 20 MG/10 ML VIAL IVP (02:21)
[2025-04-22 07:09] LABS: Abs Immature Grans 0.02 10^3/uL (0.0-0.06); HCT 39.4 % (40.0-50.0); HGB 12.9 g/dL (13.5-17.5); Immature Grans % 0.3 %; MCH 30.3 pg (27.0-33.0); MCHC 32.7 % (32.0-36.0); MCV 93 fL (80-95); MPV 10.7 fL (8.0-11.0); Platelet Count 141 10^3/uL (130-400); RBC 4.26 10^6/uL (4.36-5.78); RDW 13.2 % (11.8-14.1); RDW-SD 44.7 fL; WBC 5.79 10^3/uL (4.4-10.8)
[2025-04-22 07:51] LABS: Anion Gap 7.7 mmol/L (3-11); BUN 44 mg/dL (7-18); CO2 30.3 mmol/L (21.0-32.0); Calcium 8.7 mg/dL (8.5-10.1); Chloride 110 mmol/L (98-107); Estimated GFR 73.58 (mL/min/1.73m2); Glucose 77 mg/dL (74-106); Magnesium 2.2 mg/dL (1.8-2.4); Potassium 3.2 mmol/L (3.5-5.1); Sodium 148 mmol/L (136-145)
--- NOTE | 2025-04-22 09:10 | CMPROGNOTE_ITS ---
Date of service: 04/22/25 Time of Service: 09:10 Care Management Progress Note Progress Note Text Progress Note Text: CM has met with Anton several times today. He is very pleasant, appears very anxious. He has been refusing some of his meds. He has multiple concerns about the food he is eating and his constipation. He seems to understand that most of his problems have come from not eating and drinking, but yet he has some very vague and odd concerns. He stated that he looks things up and thinks he may have a Vitamin C deficiency because his skin is peeling. He also complains of some tingling in his groin. Urinalysis as well as vitamin C level have been ordered by the provider. CM offered Anton a referral to [place] and/or Meals on Wheels. Anton declined this offer. CM also offered to send a referral to [facility]. Anton is very personable and CM thinks he would do well there. He refused this offer as he is not old. Discharge Potential Discharge Needs: PCP F/U Appt, Surgical F/U Appt and Other (podiatry follow up) Anticipated Barriers to Discharge: None Identified Patient/Family Education Needs: Review discharge instructions, discuss Ask Me Three Transportation: Private vehicle (sister in law will pick him up) Plan: Anticipate that Anton will return home with no new services. He will f/u with his PCP and continue per his plan of care. Anton will transport home with family. CM will continue to follow. Social Determinants of Health Screening Social Determinants of health last assessed in clinic: 04/22/25 Will the Patient Participate in the Screening?: Yes Do you worry about having a steady place to live?: no Problems where you live: no known problems In the past 12 months, have you had to go without electric, gas, oil or water in your home?: no 1. Within the past 12 months, we worried whether our food would run out before we got money to buy more.: Don't know/refused 2. Within the past 12 months, the food we bought just didn't last and we didn't have money to get more.: Don't know/refused Has lack of transportation kept you from medical appointments or from doing things needed for daily living?: no Has anyone in your life made you feel unsafe or unsupported?: no How hard is it for you to pay for the very basics like food, housing, medical care, and heating? Would you say it is:: Not hard at all Do you want help finding or keeping work or a job?: I do not need or want help If for any reason you need help with day-to-day activities such as bathing, preparing meals, shopping, managing finances, etc., do you get the help you need?: I don?t need any help How often do you feel lonely or isolated from those around you?: Never Do you speak a language other than Danish at home?: No Does the patient want assistance with any of the above?: No
[2025-04-22] MEDS: Polyethylene Glycol 3350 17 GM PACKET PO ×2 (09:50→20:09)
[2025-04-22] MEDS: Potassium Chloride 20 MEQ TABCR 40 MEQ PO (09:51)
[2025-04-22] MEDS: Lactated Ringers 1,000 ML 150 ML IV (10:18)
--- NOTE | 2025-04-22 12:07 | PCPN_ITS ---
Date of service: 04/22/25 Time of Service: 11:00 Assessment and Plan Assessment and plan (1) Pneumomediastinum: Status: Acute Assessment and plan: found on CT started on Zosyn per pt, plan to change abx d/t ADR (2) MALVIN (acute kidney injury): Status: Acute Assessment and plan: improving (3) Palliative care encounter: Status: Acute Assessment and plan: PC to continue to follow, f/u at next inpt availability, pending discharge status (4) ACP (advance care planning): Status: Acute Assessment and plan: reviewed and completed HCA, consistent w/Sunday, and x3 during visit listed Alicia reviewed current hospitalization priorities, less urgent vitamin C deficiency, more important nutritional/hydration needs; reviewed constipation management w/meds and continued oral intake w/goals of improved nutritional status spent 28m w/ACP (5) Unintentional weight loss: Status: Acute Assessment and plan: tolerating oral intake, though he is worried about what foods to eat (6) Acute dehydration: Status: Acute Assessment and plan: improving; continues IVF (7) Bipolar 1 disorder: Status: Chronic Assessment and plan: hospitalist pending reach out to outpatient psych provider (8) Hx of gastroesophageal reflux (GERD): Assessment and plan: previously on PPI recommend considering restart to help support oral intake w/GERD intake reviewed coffee increases GERD sxs, he is not interested in avoiding coffee at this time (9) Constipation: Status: Acute Assessment and plan: on bowel regimen last moved this morning; remains concerned w/constipation Subjective Subjective Interval history since last seen: Anton remains hospitalized 2/2 MALVIN, malnourishment Anton did agree to a CT on 04/21, found pneumomediastinum, started on Zosyn. large quantity of stool, particularly in ascending through transferse colon and rectum. - COL[employer] TELEVISION CONSOLE MONITOR eval w/no esophageal abdnomalities - labs improving overall - tolerating oral intake per chart review Anton reports he is remaining concerned what eating, does not want to be more constipated and is fearful eating will make it worse. aware that he is receiving medications to help evacuate stool. he did move his bowels today, mostly hard w/some softness, post stool did feel better. he could feel increased abdominal distention w/constipation. He is worried about what foods to eat, thinks he has restrictions, doesn't want to eat in case he is getting a colonoscopy, no one has said that he is getting one. - yesterday he ate a PB sandwich, felt like the bread may have been too much, but did tolerate it. had a boost yesterday; has been drinking coffee, did help make feel like he wanted to move bowels; today ate some eggs, worried about bran muffin d/t stool build up - h/o GERD sxs was previously on PPIs, unsure which one he was on. is worried now that he is have more sxs, did burp today; c/o some burning. not with coffee. stopped using PPI when he stopped eating - is aware he is on an antibiotic now; had received 2 doses, both times he had sharp abd pain/burn sensation, he has reported this and reports they are planning on switching abx bc of this - he is worried about his chronic vitamin C deficiency - history of syncopal episodes w/concussions; he wonders if he has CTE now; all when he was a child - worried about internal bleeding w/hard foods bc his brother had internal bleeding. worried about eating kimmy crackers willing to review and complete HCA form having a hard time navigating priorities Exam Narrative Exam Narrative: General: 65 y/o frail cachectic appearing male; AAOx3 HEENT: temporal wasting, atraumatic; MMM Resp: even and unlabored, speaks full rapid sentences w/o SOB; no cough, no audible wheeze Skin: atrophy, thin Neuro: CNII- intact bilat; Psych: cooperative, thought process impoverished; anxious, tangential, perseverating, insight/judgment limited Objective Last Vital Signs Temp 97.2 F L 04/22/25 11:44 Pulse 85 04/22/25 11:44 Resp 17 04/22/25 11:44 BP 150/80 H 04/22/25 11:44 Pulse Ox 100 04/22/25 11:44 Laboratory Results - last 24 hr 04/22/25 06:40 WBC 5.79 RBC 4.26 L Hgb 12.9 L Hct 39.4 L MCV 93 MCH 30.3 MCHC 32.7 RDW 13.2 Plt Count 141 MPV 10.7 Immature Gran % 0.3 Neutrophils % 64.0 Lymphocytes % 22.8 Monocytes % 8.1 Eosinophils % 4.3 Basophils % 0.5 Nucleated RBC % 0.0 Absolute Neutrophils 3.70 Absolute Lymphocytes 1.32 Absolute Monocytes 0.47 Absolute Eosinophils 0.25 Absolute Basophils 0.03 Sodium 148 H Potassium 3.2 L Chloride 110 H Carbon Dioxide 30.3 Anion Gap 7.7 BUN 44 H Creatinine 1.1 Est GFR (CKD-EPI 2020) 73.58 Glucose 77 Calcium 8.7 Magnesium 2.2
[2025-04-22 12:12] LABS: MRSA PCR Negative (Negative)
[2025-04-22] MEDS: Magnesium Citrate 300 ML BTL PO (12:52)
[2025-04-22 14:45] LABS: Glucose Negative (Negative)
[2025-04-22] MEDS: Amoxicillin 875/Clav. 125 TAB PO ×2 (15:40→20:09)
[2025-04-22] MEDS: Na Phosphate Enema-Adult 133 ML BTL PR (15:48)
[2025-04-22] MEDS: Enoxaparin 40 MG/0.4 ML SYR SC (16:15)
--- NOTE | 2025-04-22 17:13 | CHAPLAIN ---
Anton was sitting up at the top of his bed when I visited today. He easily engaged in a conversation, and seemed more anxious today. He said staff are encouraging him to eat, but he is worried about eating a lot once and not easing into eat barba meals. He thinks it would be better to pace himself and gradually increase the amount he eats and is trying to weigh that against the advice of staff to just eat more.
--- NOTE | 2025-04-22 17:24 | PGE_ITS ---
Date of Service Date of service: 04/22/25 Time of Service: 17:24 Assessment and Plan Assessment and plan (1) Acute dehydration: Status: Acute Assessment and plan: Continue rehydration with LR and encourage oral fluids and meals - offer snacks Patient has been eating today and drinking fluids. He states he feels better. He had two sandwiches last night at supper. His electrolytes and kidney fxn continue to improve. (2) Pneumomediastinum: Status: Acute Assessment and plan: The patient consented to a CT scan, which revealed severe pneumomediastinum. The study was forwarded to [facility] for further evaluation. I consulted with Dr. Nilson Mathur from Thoracic Surgery, who noted that the patient is not septic, not vomiting, shows no signs of barotrauma, and has no evidence of systemic infection. He recommended a barium swallow to further evaluate the esophagus. A barium swallow was performed and showed no esophageal abnormalities. The study was also sent to [facility] for review. Based on the current findings, surgical intervention is not recommended. The plan is to manage the patient medically with IV antibiotics, continuing the treatment initiated last night. Patient now refusing antibiotics - started on augmentin 800 twice a day for 7 days MRSA negative Patient placed on oxygen at 4 LPM to assist with diffusion gradient not for hypoxia. (3) Constipation: Status: Acute Assessment and plan: Scheduled bowel meds Suppository Enema Poor output Voiding without issue - urine negative for infection Abd upright tomorrow am Encourage fluids Consider repeat CT abd once colon evacuated (4) Hypokalemia: Status: Acute Assessment and plan: 3.2 - repleted trend (5) MALVIN (acute kidney injury): Status: Acute Assessment and plan: Cr 1.1 down from 1.3 Continue IVF Trend Hold nephrotoxic drugs (6) Hypernatremia: Status: Acute Assessment and plan: 148 down from 153 - dehydrated Continue LR IV (7) Unintentional weight loss: Status: Acute Assessment and plan: Has been avoiding medications due to negative side effects, as he feels they are not helpful. Lives with his brother Patient has chosen not to eat as he feels that eating is making him more sick. Recommend slow reintroduction of food, starting with bland foods and clear liquids. Will attempt to contact patient's psychiatrist Arnaldo Mota [phone] and get some insight. Reattempt 04/23. (8) Hypermagnesemia: Status: Acute Assessment and plan: 2.2 down from Mag 2.6 - trend (9) Bipolar 1 disorder: Status: Chronic Assessment and plan: Has been avoiding medications due to negative side effects, as he feels they are not helpful. Will speak with his psychiatrist - I believe he is at baseline. - Have not reached him. Will attempt to contact on 04/23. He has declined clonazepam although it has been prescribed for him by his psychiatrist. Reinforce need for medication (10) PSA elevation: Status: Chronic Assessment and plan: Will recheck during hospitalization - pending. Exam Narrative Exam Narrative: General: 65-year-old male, frail, cachectic appearance. No distress HEENT: Temporal wasting, dry mucous membranes with skin peeling. Respiratory: Even, unlabored breathing, speaks full sentences without shortness of breath. No cough or wheeze. Cardiovascular: Regular heart rate and rhythm, no murmurs, no JVD, no peripheral edema. Abdomen: Soft, non-distended, sunken due to cachexia, no tenderness or guarding. Neurological: Cranial nerves II- intact. No focal neurological deficits. Requires assistance with transfers. Psychiatric: Cooperative, anxious, thought process impoverished, limited insight and judgment. Objective Last Vital Signs Temp 36.2 C L 04/22/25 15:25 Pulse 74 04/22/25 15:25 Resp 18 04/22/25 15:25 BP 125/93 H 04/22/25 15:25 Pulse Ox 99 04/22/25 15:29 Laboratory Results - last 24 hr 04/22/25 04/22/25 04/22/25 06:40 10:18 11:32 WBC 5.79 RBC 4.26 L Hgb 12.9 L Hct 39.4 L MCV 93 MCH 30.3 MCHC 32.7 RDW 13.2 Plt Count 141 MPV 10.7 Immature Gran % 0.3 Neutrophils % 64.0 Lymphocytes % 22.8 Monocytes % 8.1 Eosinophils % 4.3 Basophils % 0.5 Nucleated RBC % 0.0 Absolute Neutrophils 3.70 Absolute Lymphocytes 1.32 Absolute Monocytes 0.47 Absolute Eosinophils 0.25 Absolute Basophils 0.03 Sodium 148 H Potassium 3.2 L Chloride 110 H Carbon Dioxide 30.3 Anion Gap 7.7 BUN 44 H Creatinine 1.1 Est GFR (CKD-EPI 2020) 73.58 Glucose 77 Calcium 8.7 Magnesium 2.2 Ascorbic Acid Cancelled Urine Color Urine Clarity Urine pH Ur Specific [place] Urine Protein Urine Ketones Urine Blood Urine Nitrite Urine Bilirubin Urine Urobilinogen Ur Leukocyte Esterase Urine Glucose MRSA (TEM-PCR) Negative 04/22/25 14:30 WBC RBC Hgb Hct MCV MCH MCHC RDW Plt Count MPV Immature Gran % Neutrophils % Lymphocytes % Monocytes % Eosinophils % Basophils % Nucleated RBC % Absolute Neutrophils Absolute Lymphocytes Absolute Monocytes Absolute Eosinophils Absolute Basophils Sodium Potassium Chloride Carbon Dioxide Anion Gap BUN Creatinine Est GFR (CKD-EPI 2020) Glucose Calcium Magnesium Ascorbic Acid Urine Color Yellow Urine Clarity Clear Urine pH 7.0 Ur Specific [place] 1.015 Urine Protein Negative Urine Ketones Negative Urine Blood Negative Urine Nitrite Negative Urine Bilirubin Negative Urine Urobilinogen 0.2 Ur Leukocyte Esterase Negative Urine Glucose Negative MRSA (TEM-PCR) Time Spent with Patient Time Spent with Patient: 25-34 minutes Time was spent: preparing to see the patient(eg.review tests), ordering medications,tests, procedures, referring, communicating with other health manager intensive care unit, indepentently interpreting results, counseling the patient and care coordination
[2025-04-22 18:45] LABS: Lab Add On Test DONE
[2025-04-23] VITALS (9 sets, daily range): BP systolic 109–180; BP diastolic 65–110; PULSE 68–104; RESP 16–24; TEMP 35.7–37.5; O2SAT 99–100
[2025-04-23] MEDS: Lactated Ringers 1,000 ML 150 ML IV ×2 (00:21→07:27)
[2025-04-23 06:52] LABS: Abs Immature Grans 0.03 10^3/uL (0.0-0.06); HCT 40.6 % (40.0-50.0); HGB 13.8 g/dL (13.5-17.5); Immature Grans % 0.4 %; MCH 30.1 pg (27.0-33.0); MCHC 34.0 % (32.0-36.0); MCV 89 fL (80-95); MPV 10.8 fL (8.0-11.0); Platelet Count 169 10^3/uL (130-400); RBC 4.58 10^6/uL (4.36-5.78); RDW 12.5 % (11.8-14.1); RDW-SD 40.8 fL; WBC 7.47 10^3/uL (4.4-10.8)
[2025-04-23 07:25] LABS: Anion Gap 8.9 mmol/L (3-11); BUN 20 mg/dL (7-18); CO2 29.1 mmol/L (21.0-32.0); Calcium 8.8 mg/dL (8.5-10.1); Chloride 105 mmol/L (98-107); Estimated GFR 93.61 (mL/min/1.73m2); Glucose 110 mg/dL (74-106); Magnesium 2.0 mg/dL (1.8-2.4); Potassium 3.3 mmol/L (3.5-5.1); Sodium 143 mmol/L (136-145)
[2025-04-23] MEDS: Amoxicillin 875/Clav. 125 TAB PO ×2 (08:06→20:24)
[2025-04-23] MEDS: Tamsulosin 0.4 MG CAPCR PO (10:50)
--- NOTE | 2025-04-23 13:10 | W.PM.PROGNOT ---
Date of Service Date of service: 04/23/25 Time of Service: 13:11 Assessment and Plan Assessment and plan (1) Acute dehydration: Status: Acute Assessment and plan: ongoing rehydration with LR Starting enteral intake and meals - was NPO as per point 2 labs in AM (2) Pneumomediastinum: Status: Acute Assessment and plan: The patient consented to a CT scan, which revealed severe pneumomediastinum. The study was forwarded to [facility] for further evaluation. I consulted with Dr. Nilson Mathur from Thoracic Surgery, who noted that the patient is not septic, not vomiting, shows no signs of barotrauma, and has no evidence of systemic infection. -Barium swallow neagtive for esophageal abnormalities. The study was also sent to [facility] for review- No surgical intervention recommended. Plan was for medical management with IV antibiotic but refused and was started on augmentin 800 twice a day for 7 days MRSA negative Blood Cx negative Patient placed on oxygen at 4 LPM to assist with diffusion gradient not for hypoxia. (3) Urinary retention: Status: Acute Assessment and plan: As per Bladder scan Urology consult: coude placed and recommendation to manage constipation As per point 4 urine negative for infection Discussed with Dr. Conner (4) Constipation: Status: Acute Assessment and plan: continue aggressive bowel regimen with scheduled bowel meds Suppository, Enema Abd upright on 04/24 Encourage fluids Consider repeat CT abd once colon evacuated (5) Hypokalemia: Status: Acute Assessment and plan: 3.3 - repleted trend (6) MALVIN (acute kidney injury): Status: Acute Assessment and plan: Cr 1.1 down from 1.3 Continue IVF Trend Hold nephrotoxic drugs (7) Hypernatremia: Status: Acute Assessment and plan: 148 down from 153 - dehydrated Continue LR IV (8) Unintentional weight loss: Status: Acute Assessment and plan: Has been avoiding medications due to negative side effects, as he feels they are not helpful. Lives with his brother Patient has chosen not to eat as he feels that eating is making him more sick. Recommend slow reintroduction of food, starting with bland foods and clear liquids. Will attempt to contact patient's psychiatrist Arnaldo Mota [phone] and get some insight. Reattempt 04/23. (9) Hypermagnesemia: Status: Acute Assessment and plan: resolved 2.0 (10) Bipolar 1 disorder: Status: Chronic Assessment and plan: Has been avoiding medications due to negative side effects, as he feels they are not helpful. Will speak with his psychiatrist - appears stable - [facility] psychiatrist f/u continue to offer home meds- clonazepam - prescribed for him by his psychiatrist. Ongoing education to reinforce need for medication (11) PSA elevation: Status: Chronic Assessment and plan: Will recheck during hospitalization - still pending. Discussed with Dr Conner Subjective Subjective Patient reports: feels better, bowel movement and afebrile; denies voiding w/o difficulty (rivas -coude inserted by urology Dr. Bender), diarrhea, nausea, vomiting, shortness of breath or fever Exam Narrative Exam Narrative: Constitutional The patient in lying in bed without acute distress Neuro:alert and oriented to self, person, place time and situation. No neurological focal deficit Chest:Chest is symmetrical and normal appearance Resp: Unlabored breathing, clear lung bilaterally Cardio: regular rhythm, S1, S2, no murmur, bilateral radial and dorsalis pedis pulses are positive, palpable GI: Abdomen is not distended, soft and non tender, bowel sounds are present : Negative Costovertebral angle tenderness, no bladder distension- rivas in place Extremities: moves all 4 ext Psych: RASS 0, congruent mood and normal affect. Objective Last Vital Signs Temp 36.8 C 04/23/25 11:09 Pulse 68 04/23/25 11:09 Resp 16 04/23/25 11:09 BP 122/78 04/23/25 11:09 Pulse Ox 100 04/23/25 11:09 Laboratory Results - last 24 hr 04/22/25 04/22/25 04/22/25 10:18 14:30 Unknown WBC RBC Hgb Hct MCV MCH MCHC RDW Plt Count MPV Immature Gran % Neutrophils % Lymphocytes % Monocytes % Eosinophils % Basophils % Nucleated RBC % Absolute Neutrophils Absolute Lymphocytes Absolute Monocytes Absolute Eosinophils Absolute Basophils Sodium Potassium Chloride Carbon Dioxide Anion Gap BUN Creatinine Est GFR (CKD-EPI 2020) Glucose Calcium Magnesium Urine Color Yellow Urine Clarity Clear Urine pH 7.0 Ur Specific [place] 1.015 Urine Protein Negative Urine Ketones Negative Urine Blood Negative Urine Nitrite Negative Urine Bilirubin Negative Urine Urobilinogen 0.2 Ur Leukocyte Esterase Negative Urine Glucose Negative MRSA (TEM-PCR) Negative Add-On Test Request DONE 04/23/25 06:30 WBC 7.47 RBC 4.58 Hgb 13.8 Hct 40.6 MCV 89 D MCH 30.1 MCHC 34.0 RDW 12.5 Plt Count 169 MPV 10.8 Immature Gran % 0.4 Neutrophils % 70.6 Lymphocytes % 15.7 Monocytes % 9.9 Eosinophils % 3.1 Basophils % 0.3 Nucleated RBC % 0.0 Absolute Neutrophils 5.28 Absolute Lymphocytes 1.17 L Absolute Monocytes 0.74 Absolute Eosinophils 0.23 Absolute Basophils 0.02 Sodium 143 Potassium 3.3 L Chloride 105 Carbon Dioxide 29.1 Anion Gap 8.9 BUN 20 H Creatinine 0.9 Est GFR (CKD-EPI 2020) 93.61 Glucose 110 H Calcium 8.8 Magnesium 2.0 Urine Color Urine Clarity Urine pH Ur Specific [place] Urine Protein Urine Ketones Urine Blood Urine Nitrite Urine Bilirubin Urine Urobilinogen Ur Leukocyte Esterase Urine Glucose MRSA (TEM-PCR) Add-On Test Request Time Spent with Patient Time Spent with Patient: >50 minutes Time was spent: preparing to see the patient(eg.review tests), obtaining and/or reviewing separately otained hiistory, ordering medications,tests, procedures, referring, communicating with other health urgent care physician, indepentently interpreting results, counseling the patient and care coordination
--- NOTE | 2025-04-23 14:08 | UCONE_ITS ---
Date of service: 04/23/25 Time of Service: 12:00 Assessment and Plan Assessment and plan (1) Urinary retention: Status: Acute Assessment and plan: It is not clear to me how much of his retention is related to his coexisting constipation, which might be related to bladder outlet obstruction. I would plan to leave his catheter in place at least until his bowel situation has improved. It is probably most prudent to leave the catheter in until his follow-up visit in our office in a few weeks. We can workup his elevated PSA (if he is interested) as an outpatient. History of Present Illness History of Present Illness Chief Complaint: Urinary retention Narrative: This is a 65-year-old gentleman who has a history of lower urinary tract symptoms and an elevated PSA. He already has a pending referral to see us in the office. His appointment is in the next week or 2 He is currently hospitalized with weight loss and constipation. He is now unable to void and has residual urines over 900 cc. The staff was unable to catheterize him and I been asked to provide bladder drainage for him. He has not been on any type of urologic medications. PFSH All Active Problems (Updated 04/23/25 @ 16:26 by Louis Bender MD) Urinary retention (Acute) PSA elevation (Chronic) Hypokalemia (Acute) Constipation (Acute) Pneumomediastinum (Acute) MALVIN (acute kidney injury) (Acute) Hypernatremia (Acute) Palliative care encounter (Acute) ACP (advance care planning) (Acute) Unintentional weight loss (Acute) Hypermagnesemia (Acute) Acute dehydration (Acute) Elevated PSA (Acute) BPH loc w/o ur obs/LUTS (Acute) Losing weight (Acute) Cholelithiasis without cholecystitis (Acute) Bipolar 1 disorder (Chronic 2019) Managed with clonazepam; psychiatrist in [place] Hypertension (Chronic) good control with Ramipril; adverse effects with amlodipine. Unable to tolerate ramipril Medical History (Updated 04/23/25 @ 16:26 by Louis Bender MD) Hx of gastroesophageal reflux (GERD) resolved with weight loss Hx of sleep apnea resolved with weight loss Surgical History (Updated 11/17/24 @ 16:45 by Simona Caputo RN) History of mandibular surgery (~1997) mandible advancement for sleep apnea, [facility] Family History (Updated 11/21/24 @ 11:35 by Delia Jones MD) Mother Heart disease Father Heart disease Brother Heart disease Brother Parkinson disease Atrial fibrillation Social History (Updated 03/04/25 @ 17:09 by Renita Flores) Smoking/Tobacco Use Status: Never Second Hand Exposure: Yes Smoking risk assessment performed?: Yes Alcohol Intake: former Year quit: 1999 Drug use: Never Substance use type: does not use Counseling given: No Adopted: No Caregiver/Support person: No Household members: family Housing: apartment Number of Children: 0 Communication Needs: None Education Level: college Do you need help understanding health information?: Never current occupation: retired, varied jobs Sexually active: No Current gender identity: male What is your relationship status?: never How often do you talk on the phone with friends or family?: three or more times per week How often do you get together with friends or relatives?: three or more times per week How often do you attend voodoo or taoist services?: 4 or more times per year Do you belong to any clubs or organized social groups?: decline to answer Panel score (0-1 are the most socially isolated patients): 2 NHANES result reviewed/action taken: Yes What type of physical activity do you participate in: walking, bicycling and other Details: hiking, pushups, sit ups, crunches, squats Duration: 45-60 minutes/day Frequency: daily Delia/Lutheran: Muslim Special delia needs: No Seatbelt use: always Drive intox or ride w/intox jitney driver: No Firearms in home: No Do you feel safe at home: Yes Do you feel safe in your relationship?: Yes Exam Narrative Exam Narrative: He appears more chronically ill than he does acutely ill His suprapubic area is firm and tender He is awake and alert Results Last Vital Signs Temp 36.8 C 04/23/25 11:09 Pulse 68 04/23/25 11:09 Resp 16 04/23/25 11:09 BP 122/78 04/23/25 11:09 Pulse Ox 100 04/23/25 11:09 Labs 04/23/25 06:30 04/23/25 06:30 Labs: Laboratory Results - last 24 hr 04/22/25 04/22/25 04/23/25 14:30 Unknown 06:30 WBC 7.47 RBC 4.58 Hgb 13.8 Hct 40.6 MCV 89 D MCH 30.1 MCHC 34.0 RDW 12.5 Plt Count 169 MPV 10.8 Immature Gran % 0.4 Neutrophils % 70.6 Lymphocytes % 15.7 Monocytes % 9.9 Eosinophils % 3.1 Basophils % 0.3 Nucleated RBC % 0.0 Absolute Neutrophils 5.28 Absolute Lymphocytes 1.17 L Absolute Monocytes 0.74 Absolute Eosinophils 0.23 Absolute Basophils 0.02 Sodium 143 Potassium 3.3 L Chloride 105 Carbon Dioxide 29.1 Anion Gap 8.9 BUN 20 H Creatinine 0.9 Est GFR (CKD-EPI 2020) 93.61 Glucose 110 H Calcium 8.8 Magnesium 2.0 Urine Color Yellow Urine Clarity Clear Urine pH 7.0 Ur Specific [place] 1.015 Urine Protein Negative Urine Ketones Negative Urine Blood Negative Urine Nitrite Negative Urine Bilirubin Negative Urine Urobilinogen 0.2 Ur Leukocyte Esterase Negative Urine Glucose Negative Add-On Test Request DONE Insert Bladder Catheter Text: The patient is seen at the bedside. He is placed in the supine position. His genitalia is prepped with Betadine. 2% Xylocaine jelly is instilled into the urethra to act as a local anesthetic. A 16 [place] coud? tipped catheter is passed through the urethra into the bladder. Over 800 cc of clear urine was obtained. The catheter balloon was inflated with 10 cc of sterile water and the catheter was hooked to gravity drainage. He tolerated the procedure well with no complications.
--- NOTE | 2025-04-23 15:27 | PDOC.CMPRO ---
Date of service: 04/23/25 Time of Service: 15:27 Care Management Progress Note Progress Note Text Progress Note Text: Anton was lying in bed, watching TV, when CM met with him today. He stated that he was feeling a little sluggish today. He was still quite friendly, but did not talk nearly as much today as he has previously. He also seemed to have a delay in answering when asked questions. He had a rivas catheter placed today by Dr. Bender, as RN could not pass it. This was done because he was noted to have an almost 900cc urinary retention. He stated to CM that he felt almost immediate relief of his back pain when the catheter was placed. Discharge Potential Discharge Needs: PCP F/U Appt and Other (? urology f/u) Anticipated Barriers to Discharge: None Identified Patient/Family Education Needs: Review discharge instructions, discuss Ask Me Three Transportation: Private vehicle Plan: Anticipate that Anton will return home with no new services. He will f/u with his PCP and continue per his plan of care. Anton will transport home with family. CM will continue to follow. Social Determinants of Health Screening Social Determinants of health last assessed in clinic: 04/23/25 Will the Patient Participate in the Screening?: Yes Do you worry about having a steady place to live?: no Problems where you live: no known problems In the past 12 months, have you had to go without electric, gas, oil or water in your home?: no 1. Within the past 12 months, we worried whether our food would run out before we got money to buy more.: Don't know/refused 2. Within the past 12 months, the food we bought just didn't last and we didn't have money to get more.: Don't know/refused Has lack of transportation kept you from medical appointments or from doing things needed for daily living?: no Has anyone in your life made you feel unsafe or unsupported?: no How hard is it for you to pay for the very basics like food, housing, medical care, and heating? Would you say it is:: Not hard at all Do you want help finding or keeping work or a job?: I do not need or want help If for any reason you need help with day-to-day activities such as bathing, preparing meals, shopping, managing finances, etc., do you get the help you need?: I don?t need any help How often do you feel lonely or isolated from those around you?: Never Do you speak a language other than Tristanian at home?: No Does the patient want assistance with any of the above?: No
--- NOTE | 2025-04-23 15:56 | CHAPLAIN ---
Anton was sitting in the recliner when I visited this morning and he complained of back pain. His nurse, Heydi, told him that it's likely his bladder causing the pain, and Dr. Bender, from Urology would be seeing him today. Anton was happy to learn that Dr. Bender would visit Anton in his room and he didn't have to wait for an appointment. According to Care Management notes, Anton felt better after Dr. Bender placed catheter. Anton was friendly as usually, but definitely not feeling well when I visited. He appreciated the prayer shawl I gave him.
[2025-04-23] MEDS: Enoxaparin 40 MG/0.4 ML SYR SC (17:20)
[2025-04-23 18:44] LABS: PSA, Diagnostic 8.8 ng/mL (<=4.5)
[2025-04-23] MEDS: Polyethylene Glycol 3350 17 GM PACKET PO (20:24)
[2025-04-23] MEDS: Potassium Chloride 20 MEQ TABCR 40 MEQ PO (20:24)
[2025-04-23] MEDS: clonazePAM 1 MG TAB PO (20:25)
[2025-04-23] MEDS: Normal Saline Flush 10 ML SYR (20:26)
[2025-04-24] MEDS: Lactated Ringers 1,000 ML 150 ML IV ×2 (01:40→08:48)
[2025-04-24 03:04] VITALS: BP 118/83; PULSE 63; RESP 19; TEMP 36.2; O2SAT 100
[2025-04-24 06:26] LABS: Abs Immature Grans 0.03 10^3/uL (0.0-0.06); HCT 40.3 % (40.0-50.0); HGB 13.5 g/dL (13.5-17.5); Immature Grans % 0.5 %; MCH 30.5 pg (27.0-33.0); MCHC 33.5 % (32.0-36.0); MCV 91 fL (80-95); MPV 11.0 fL (8.0-11.0); Platelet Count 139 10^3/uL (130-400); RBC 4.42 10^6/uL (4.36-5.78); RDW 12.8 % (11.8-14.1); RDW-SD 42.5 fL; WBC 6.57 10^3/uL (4.4-10.8)
[2025-04-24 06:36] LABS: Anion Gap 4.6 mmol/L (3-11); BUN 16 mg/dL (7-18); CO2 33.4 mmol/L (21.0-32.0); Calcium 9.1 mg/dL (8.5-10.1); Chloride 105 mmol/L (98-107); Estimated GFR 97.00 (mL/min/1.73m2); Glucose 92 mg/dL (74-106); Magnesium 2.1 mg/dL (1.8-2.4); Potassium 4.1 mmol/L (3.5-5.1); Sodium 143 mmol/L (136-145)
[2025-04-24 07:24] VITALS: BP 117/79; PULSE 53; RESP 16; TEMP 36.1; O2SAT 99
--- NOTE | 2025-04-24 08:00 | DI.RAD_ITS ---
Exam(s) XR ABD FLAT UPRIGHT PA CHEST EXAM: XR ABD FLAT UPRIGHT PA CHEST CLINICAL HISTORY: constipation. TECHNIQUE: 2D digital imaging was performed. COMPARISON: CR,RF RF BARIUM SWALLOW from 04/21/2025 FINDINGS: Upright PA view of the chest as well as supine and upright views of the abdomen. Upright PA chest x-ray: Heart size is normal mediastinum is not widened. Bilateral interstitial fibrosis disease again noted. Appearance of the lung santiago is similar to 04/21/2025. There are no pleural effusions. No pneumothorax. Significant decrease in the amount of pneumomediastinum when compared to 3 days ago. Abdomen-supine and upright. There is no evidence of free air nor bowel obstruction. All of the esophagram contrast is in the colon. There is extensive sigmoid diverticulosis noted. Colon diameter is upper normal. No evidence of constipation. There is a catheter in the urinary bladder as well as some contrast in the nondistended urinary bladder. Regional bones appear unremarkable. IMPRESSION: No evidence of bowel obstruction nor free intraperitoneal air. No constipation. Chronic interstitial disease again noted in both lung santiago. There are no pleural effusions. DATA REPOSITORY: RADIATION DOSE DELIVERED:
--- NOTE | 2025-04-24 09:18 | DI.VRAD_ITS ---
PROCEDURE INFORMATION: Exam: XR Complete Acute Abdomen Series Including Chest Exam date and time: 04/24/2025 8:10 AM Age: 65 years old Clinical indication: Constipation TECHNIQUE: Imaging protocol: Radiologic exam. Complete acute abdomen series, including 2 or more views of the abdomen and a single view chest. COMPARISON: CT CHEST/ABD/PEL W 04/21/2025 11:38 AM FINDINGS: Lungs: Interstitial pulmonary fibrosis and hyperinflation, similar to prior exam. No consolidation or mass. Bilateral nipple shadows are noted. Pleural spaces: Normal. No pleural effusions. No pneumothorax. Heart/Mediastinum: Residual pneumomediastinum likely. No cardiomegaly. Gastrointestinal tract: Contrast material seen throughout the colon. Diverticulosis of the descending and sigmoid colon. No significant constipation. No small bowel dilation. Bladder: Catheter in the bladder. Contrast material in the bladder. Intraperitoneal space: Normal. No free air. Bones/joints: Normal. No acute fracture. Soft tissues: Normal. IMPRESSION: No evidence of constipation. Dictated and Authenticated by: Chery Downs MD. Orderin Venus Leslie MD
[2025-04-24] MEDS: clonazePAM 1 MG TAB PO ×3 (09:25→20:11)
[2025-04-24] MEDS: Tamsulosin 0.4 MG CAPCR PO (09:25)
[2025-04-24] MEDS: Amoxicillin 875/Clav. 125 TAB PO ×2 (09:25→20:11)
[2025-04-24] MEDS: Potassium Chloride 20 MEQ TABCR 40 MEQ PO (09:25)
[2025-04-24 11:11] VITALS: BP 107/73; PULSE 67; RESP 16; TEMP 36.4; O2SAT 98
--- NOTE | 2025-04-24 11:13 | PGE_ITS ---
Date of Service Date of service: 04/24/25 Time of Service: 11:13 Assessment and Plan Assessment and plan (1) Acute dehydration: Status: Acute Assessment and plan: Resolved LR discontinued Enteral intake well tolerated (2) Pneumomediastinum: Status: Acute Assessment and plan: The patient consented to a CT scan, which revealed severe pneumomediastinum. The study was forwarded to [facility] for further evaluation. Dr. Nilson Mathur from Thoracic Surgery consulted- findings of sepsis, vomiting, barotrauma or evidence of systemic infection. -Barium swallow negative for esophageal abnormalities. No surgical intervention recommended as per [facility] for review Plan was for medical management with IV antibiotic but refused and was started on augmentin 800 twice a day for 7 days MRSA negative Blood Cx negative Initially patient placed on oxygen at 4 LPM to assist with diffusion gradient not for hypoxia, discontinued and stable (3) Urinary retention: Status: Acute Assessment and plan: As per Bladder scan Urology consult: coude placed and recommendation to continue to manage constipation F/u with Dr. Bender in a few weeks with recommendation to keep the rivas in until then As per point 4 Urine was negative for infection (4) Constipation: Status: Acute Assessment and plan: Continue bowel regimen with scheduled bowel meds Suppository, Enema Abd upright on 04/24- not signs of constipation as per report but abundant barium contrast remnant in hepatic flexure to splenic flexure both appearing dilated as per review of images.In addition urology ppointing to urinary retention could be multifactorial from both constipation and bladder outlet obstruction in the setting of elevated PSA Nulytely 250 ml or Miralax TID with meals today then repeat imaging Encourage fluids Consider repeat CT abd once colon evacuated (5) Hypokalemia: Status: Acute Assessment and plan: replete and resolved trend (6) MALVIN (acute kidney injury): Status: Acute Assessment and plan: Resolved Cr 0.8 baseline Stop IVF encourage oral fluid (7) Hypernatremia: Status: Acute Assessment and plan: Resolved (8) Unintentional weight loss: Status: Acute Assessment and plan: Has been avoiding medications due to negative side effects but now takes his clonazepam s/p education regarding increased anxiety and constipation,he as he feels they are not helpful. Lives with his brother Patient has chosen not to eat/ ketosis but then was unable to stop-as he feels that eating is making him more sick. Recommend slow reintroduction of food, starting with bland foods and clear liquids- balanced diet recommended such as ( chicken, brocoli and potato, fresh fruit and vegetables, ample hydration w/o concentrated sugar). Nutrition consult: -Recommend daily weights - standing scale if possible for accuracy -Will provide preferred foods and encourage balanced meals. -Nourishments to be provided at 10:00, 14:00 and 17:00 as high protein ONS or kitchen-made shakes. -Vitamin C labs pending Patient's psychiatrist Arnaldo Mota [phone] - attempt to reach failed on 04/22, not attempted on 04/23- outpatient f/u - Patient agrees to : Nutrition to follow outpatient (9) Hypermagnesemia: Status: Acute Assessment and plan: resolved 2.0 (10) Bipolar 1 disorder: Status: Chronic Assessment and plan: Has been avoiding medications due to negative side effects, as he feels they are not helpful. Will speak with his psychiatrist - appears stable - OPT psychiatrist f/u continue to offer home meds- clonazepam - prescribed for him by his psychiatrist. Ongoing education to reinforce need for medication (11) PSA elevation: Status: Chronic Assessment and plan: Will recheck during hospitalization - still pending. Discussed with Dr Conner Subjective Subjective Patient reports: feels better, tolerating liquids well, tolerating a regular diet, voiding w/o difficulty (rivas), flatus, bowel movement and afebrile; denies diarrhea, blood in stool, nausea, vomiting, shortness of breath or fever Exam Narrative Exam Narrative: Constitutional The patient in lying in bed without acute distress, animated affect and speech Neuro:alert and oriented X4 . No neurological focal deficit Chest:Chest is symmetrical and normal appearance Resp: Unlabored breathing, clear lung bilaterally Cardio: regular rhythm, S1, S2, no murmur, bilateral radial and dorsalis pedis pulses are positive, palpable GI: Abdomen is not distended, soft and non tender, bowel sounds are present :No CVA tenderness, no bladder distension- rivas in place Extremities: moves all 4 ext Psych: RASS 0-1 Objective Last Vital Signs Temp 36.4 C L 04/24/25 11:11 Pulse 67 04/24/25 11:11 Resp 16 07/04/25 11:11 BP 107/73 04/24/25 11:11 Pulse Ox 98 04/24/25 11:11 Laboratory Results - last 24 hr 04/24/25 06:07 WBC 6.57 RBC 4.42 Hgb 13.5 Hct 40.3 MCV 91 MCH 30.5 MCHC 33.5 RDW 12.8 Plt Count 139 MPV 11.0 Immature Gran % 0.5 Neutrophils % 66.2 Lymphocytes % 22.5 Monocytes % 8.8 Eosinophils % 1.7 Basophils % 0.3 Nucleated RBC % 0.0 Absolute Neutrophils 4.35 Absolute Lymphocytes 1.48 Absolute Monocytes 0.58 Absolute Eosinophils 0.11 Absolute Basophils 0.02 Sodium 143 Potassium 4.1 Chloride 105 Carbon Dioxide 33.4 H Anion Gap 4.6 BUN 16 Creatinine 0.8 Est GFR (CKD-EPI 2020) 97.00 Glucose 92 Calcium 9.1 Magnesium 2.1 Time Spent with Patient Time Spent with Patient: >50 minutes Time was spent: preparing to see the patient(eg.review tests), obtaining and/or reviewing separately otained hiistory, ordering medications,tests, procedures, referring, communicating with other health healthcare facility administrator, indepentently interpreting results, counseling the patient and care coordination
[2025-04-24] MEDS: Polyethylene Glycol 3350 17 GM PACKET PO ×2 (14:01→16:35)
[2025-04-24 15:39] VITALS: BP 98/67; PULSE 93; RESP 18; TEMP 36.4; O2SAT 96
[2025-04-24] MEDS: Enoxaparin 40 MG/0.4 ML SYR SC (16:35)
[2025-04-24 19:40] VITALS: BP 95/60; PULSE 88; RESP 22; TEMP 36.5; O2SAT 100
[2025-04-24] MEDS: Normal Saline Flush 10 ML SYR IVP (20:13)
[2025-04-24 23:08] VITALS: BP 100/80; PULSE 103; RESP 24; TEMP 36.7; O2SAT 99
[2025-04-24] MEDS: LORazepam 20 MG/10 ML VIAL IVP (23:18)
[2025-04-25 03:07] VITALS: BP 127/81; PULSE 86; RESP 12; TEMP 36.8; O2SAT 98
[2025-04-25 07:17] VITALS: BP 124/83; PULSE 85; RESP 20; TEMP 36.9; O2SAT 98
[2025-04-25] MEDS: clonazePAM 1 MG TAB PO ×2 (09:38→11:59)
[2025-04-25] MEDS: Tamsulosin 0.4 MG CAPCR PO (09:38)
[2025-04-25] MEDS: Amoxicillin 875/Clav. 125 TAB PO (09:38)
[2025-04-25] MEDS: Normal Saline Flush 10 ML SYR IVP (09:39)
--- NOTE | 2025-04-25 11:12 | W.PM.DS.N ---
Date of service: 04/25/25 Time of Service: 11:12 DS: Diagnosis Discharge Diagnosis (1) Acute dehydration: Status: Resolved (2) Pneumomediastinum: (3) Urinary retention: Status: Acute (4) Constipation: Status: Resolved (5) Hypokalemia: Status: Resolved (6) MALVIN (acute kidney injury): (7) Hypernatremia: (8) Unintentional weight loss: Status: Acute (9) Hypermagnesemia: Status: Resolved (10) Bipolar 1 disorder: Status: Chronic (11) PSA elevation: Status: Chronic Discharge Plan Disposition Patient Disposition: Home W/Home Health Services Condition: Improving Discharge Details Reason For Visit: MALVIN, hypernatremia, hypermagnesemia Admit Date/Time: 04/20/25 14:45 Admit Provider: Bang Becerra Attending Provider: Bang Becerra Primary Care Provider: Sha Hillman Hospital Course Hospital Course: This is a 65-year-old male patient significant medical history for bipolar 1 disorder BPH, hypertension who presented to the emergency department for generalized weakness and anorexia. He has not been taking his outpatient medications for his chronic disease management. He has had significant weight loss since December going from 149 to 112 pounds. His workup in the emergency department did include a CAT scan with an unexpected finding of significant pneumomediastinum. Imaging was reviewed with CT surgery at [facility] with no surgical recommendations at this time. Hemodynamically he remained stable with no oxygen requirements. I did recommend antibiotics which he declined IV antibiotics and was started on Augmentin. He should complete a 7-day course. Hospital course also complicated with urinary retention. He was seen by urology and recommendations are to discharge with ongoing Guthrie catheter care, instructions have been provided. He also was experiencing constipation prior to Guthrie catheter placement which was thought to be as a result of the urinary retention. He did undergo bowel management with good effect. He should continue MiraLAX daily in addition to tamsulosin daily. He has been eating and drinking. Having daily bowel movements. Guthrie catheter has been draining without difficulty and teaching has been completed. He is being discharged home with new home health nursing to assist with medication compliance and Guthrie catheter teaching as needed. He was not an agreement with discharge even after I explained that he no longer meets criteria for inpatient management and that we would provide Guthrie catheter care teaching and home health nursing to assist him with his discharge, ultimately he filed an appeal to the discharge with his insurance company. He was notified that the appeal was declined and he requested that I discharge him home. discharge discussed with DR Conner. Recommendations for Follow Up Recommended tests to be ordered by follow up provider: Needs a referral to psychiatry or f/u with his current psychiatrist Home Meds and New Rx's Prescriptions: New tamsulosin 0.4 mg Capsule 0.4 mg PO DAILY Qty: 30 0RF polyethylene glycol 3350 17 gram Powder In Packet 17 g PO DAILY Qty: 30 0RF amoxicillin-pot clavulanate 875-125 mg Tablet 1 tab PO BID Qty: 10 0RF Continued tetanus-diphtheria toxoids-Td 2-2 Lf unit/0.5 mL suspension 0.5 ml IM ONCE Qty: 0.5 0RF clonazepam 1 mg tablet 1 mg PO TID Discharge Instructions Instructions: Constipation in adults, Dehydration, Adult (DC), Amoxicillin and Clavulanate Additional Instructions: Continue Augmentin twice a day for a total of 7 days. Guthrie catheter care. Stand Alone Forms: Nursing Discharge Form Referrals: Sha Hillman, LONG TERM CARE PHLEBOTOMIST [Primary Care Provider, Medicine] Referral Note: Please call the office to set up a hospital follow up within a week. Activity:: Activity as Tolerated Equipment/Supplies:: No Equipment Needed Diet:: heart healthy- balanced diet Discharge Orders Discharge Orders: Discharge Order (Routine); Ordered 04/25/25 Ordered By: Katlyn Coleman Discharge Data Discharge Date/Time-TO BE ENTERED AT DEPARTURE: 04/25/25 18:00 DS: Summary Time Spent with Patient providing and/or coordinating discharge services: Greater than 30 minutes Status at Discharge Functional status at discharge: independent ambulation Overall status at discharge: patient is progressing back to baseline Mental Status: mental status grossly normal Speech and Movement: speech and movement normal Mood: congruent mood Affect: normal affect Exam Narrative Exam Narrative: Chronically ill-appearing older than stated age male thin in no acute distress head is atraumatic poor dentition with missing teeth and decay. Oral mucosa is moist neck full range of motion respirations even and unlabored no wheezing cardiovascular regular rate and rhythm moves all extremities no peripheral edema neurologic he is awake alert oriented at his baseline psychiatric anxious mood and affect Psych Mental Status: mental status grossly normal Speech and Movement: speech and movement normal Mood: congruent mood Affect: normal affect DS: Data Vitals/I&O Vitals and I&O: Vital Signs Temperature 36.9 C 04/25/25 07:17 Temperature Source Tympanic 04/25/25 07:17 Pulse 85 04/25/25 07:17 Pulse Rhythm Regular 04/20/25 17:05 Pulse 84 04/20/25 15:10 Respiratory Rate 20 04/25/25 07:17 Respiratory Effort Normal, Non-Labored 04/20/25 17:05 Respiratory Depth Normal 04/20/25 17:05 Respiratory Pattern Normal 04/20/25 17:05 Blood Pressure 124/83 04/25/25 07:17 Blood Pressure Mean 96 04/25/25 07:17 Blood Pressure Position Sitting 04/20/25 13:15 Pulse Oximetry 98 04/25/25 07:17 Oxygen Delivery Method Room Air 04/25/25 07:17 Oxygen Flow Rate 0 04/25/25 07:17 Pain Level 5 04/25/25 03:07 Comment Pt complains of a burning sensation while voiding. 04/23/25 00:27 Intake & Output 04/24/25 04/24/25 04/25/25 11:59 23:59 11:59 Intake Total 2000 / 2527.5 527.5 / 2527.5 300 / 300 Output Total 450 / 1150 700 / 1150 300 / 300 Balance 1550 / 1377.5 -172.5 / 1377.5 0 / 0 Weight 57 kg 59.2 kg Intake: IV 2000 / 2527.5 527.5 / 2527.5 Oral 300 / 300 Output: Urine 450 / 1150 700 / 1150 300 / 300 Other: Urine Color Light Trupti Straw Yellow Urine Appearance Clear Clear Clear Stool Size Small Small Stool Characteristics Liquid Liquid Data Completed and Pending Labs on day of discharge: Preliminary micro results at discharge 04/21/25 18:50 Blood Blood Culture - Preliminary NO GROWTH 72 HOURS 04/21/25 18:30 Blood Blood Culture - Preliminary NO GROWTH 72 HOURS 04/20/25 18:05 Blood Blood Culture - Preliminary NO GROWTH 96 HOURS 04/20/25 13:25 Blood Blood Culture - Preliminary NO GROWTH 96 HOURS PFSH All Active Problems (Updated 04/26/25 @ 00:02 by MARC MAIER) Discharge planning issues (Acute) Urinary retention (Acute) PSA elevation (Chronic) Unintentional weight loss (Acute) BPH loc w/o ur obs/LUTS (Acute) Losing weight (Acute) Cholelithiasis without cholecystitis (Acute) Bipolar 1 disorder (Chronic 2019) Managed with clonazepam; psychiatrist in [place] Hypertension (Chronic) good control with Ramipril; adverse effects with amlodipine. Unable to tolerate ramipril Medical History (Updated 04/26/25 @ 00:02 by MARC MAIER) Pneumomediastinum MALVIN (acute kidney injury) Hypernatremia Palliative care encounter Elevated PSA Hx of gastroesophageal reflux (GERD) resolved with weight loss Hx of sleep apnea resolved with weight loss Surgical History (Updated 11/17/24 @ 16:45 by Simona Caputo RN) History of mandibular surgery (~1997) mandible advancement for sleep apnea, [facility] Family History (Updated 11/21/24 @ 11:35 by Delia Jones MD) Mother Heart disease Father Heart disease Brother Heart disease Brother Parkinson disease Atrial fibrillation Social History (Updated 03/04/25 @ 17:09 by Renita Flores) Smoking/Tobacco Use Status: Never Second Hand Exposure: Yes Smoking risk assessment performed?: Yes Alcohol Intake: former Year quit: 1999 Drug use: Never Substance use type: does not use Counseling given: No Adopted: No Caregiver/Support person: No Household members: family Housing: apartment Number of Children: 0 Communication Needs: None Education Level: college Do you need help understanding health information?: Never current occupation: retired, varied jobs Sexually active: No Current gender identity: male What is your relationship status?: never How often do you talk on the phone with friends or family?: three or more times per week How often do you get together with friends or relatives?: three or more times per week How often do you attend samaritan or hinduism services?: 4 or more times per year Do you belong to any clubs or organized social groups?: decline to answer Panel score (0-1 are the most socially isolated patients): 2 NHANES result reviewed/action taken: Yes What type of physical activity do you participate in: walking, bicycling and other Details: hiking, pushups, sit ups, crunches, squats Duration: 45-60 minutes/day Frequency: daily Delia/Christianity: Christianity Special delia needs: No Seatbelt use: always Drive intox or ride w/intox 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
[2025-04-25 11:17] VITALS: BP 122/78; PULSE 79; RESP 16; TEMP 36.6; O2SAT 98
--- NOTE | 2025-04-25 11:37 | W.PM.PROGNOT ---
Date of Service Date of service: 04/25/25 Time of Service: 11:37 Assessment and Plan Assessment and plan (1) Acute dehydration: Status: Resolved Assessment and plan: Resolved and labs stable Taking good oral intake (2) Pneumomediastinum: Status: Acute Assessment and plan: Stable with no oxygen requirements Case was discussed with CT surgery (Dr Nilson Mathur) at [facility] - No surgical intervention recommended recommendations for Augmentin 875 twice daily for 7 days. -Barium swallow negative for esophageal abnormalities. MRSA negative Blood Cx negative (3) Urinary retention: Status: Acute Assessment and plan: As per Bladder scan Urology consult: coude placed and recommendation to continue to manage constipation F/u with Dr. Bender in a few weeks with recommendation to keep the rivas in until then Will need indwelling Rivas catheter teaching for home management Urine was negative for infection (4) Constipation: Status: Resolved Assessment and plan: Continue bowel regimen with scheduled bowel meds Suppository, Enema (5) Hypokalemia: Status: Resolved Assessment and plan: repleted and resolved Potassium 4.1 (6) MALVIN (acute kidney injury): Status: Resolved Assessment and plan: Resolved Cr 0.8 baseline Stable off IV fluids multifactoral with poor po intake and urinary retention. now resolved (7) Hypernatremia: Status: Resolved Assessment and plan: Resolved (8) Unintentional weight loss: Status: Acute Assessment and plan: Has been avoiding medications due to negative side effects but now takes his clonazepam s/p education regarding increased anxiety and constipation,he as he feels they are not helpful. Lives with his brother Patient has chosen not to eat/ ketosis but then was unable to stop-as he feels that eating is making him more sick. Recommend slow reintroduction of food, starting with bland foods and clear liquids- balanced diet recommended such as ( chicken, brocoli and potato, fresh fruit and vegetables, ample hydration w/o concentrated sugar). Nutrition consult: -Recommend daily weights - standing scale if possible for accuracy -Will provide preferred foods and encourage balanced meals. -Nourishments to be provided at 10:00, 14:00 and 17:00 as high protein ONS or kitchen-made shakes. -Vitamin C labs pending Patient's psychiatrist Arnaldo Mota [phone] - attempt to reach failed on 04/22, not attempted on 04/23- outpatient f/u - Patient agrees to : Nutrition to follow outpatient (9) Hypermagnesemia: Status: Resolved Assessment and plan: resolved with repletion and now 2.0 (10) Bipolar 1 disorder: Status: Chronic Assessment and plan: Has been avoiding medications due to negative side effects, as he feels they are not helpful. OPT psychiatrist f/u continue to offer home meds- clonazepam - prescribed for him by his psychiatrist. Ongoing education to reinforce need for medication (11) PSA elevation: Status: Chronic Assessment and plan: PSA pending. (12) Discharge planning issues: Status: Acute Assessment and plan: patient has been medically stable and refusing to leave for 2 days now. offered home health services which he declines. case management notified of discharge appeal intent Discussed with DR Conner Subjective Subjective Interval history since last seen: Patient with no new complaints and remains medically stable. Labs reviewed and normalized. Oxygenating well on room air. Has been afebrile and hemodynamically stable. He is eating and drinking Rivas draining clear yellow urine. Exam Narrative Exam Narrative: Chronically ill-appearing older than stated age male thin in no acute distress head is atraumatic poor dentition with missing teeth and decay. Oral mucosa is moist neck full range of motion respirations even and unlabored no wheezing cardiovascular regular rate and rhythm moves all extremities no peripheral edema neurologic he is awake alert oriented at his baseline psychiatric anxious mood and affect Objective Last Vital Signs Temp 36.6 C 04/25/25 11:17 Pulse 79 04/25/25 11:17 Resp 16 04/25/25 11:17 BP 122/78 04/25/25 11:17 Pulse Ox 98 04/25/25 11:17 Time Spent with Patient Time Spent with Patient: 35-49 minutes Time was spent: preparing to see the patient(eg.review tests), obtaining and/or reviewing separately otained hiistory, ordering medications,tests, procedures, referring, communicating with other health medicare insurance specialist, indepentently interpreting results, counseling the patient and care coordination
--- NOTE | 2025-04-25 12:00 | NUR.NOTE ---
Nursing Note: klonopin given earlier per provider order
--- NOTE | 2025-04-25 13:32 | PDOC.CMPRO ---
Date of service: 04/25/25 Time of Service: 13:33 Care Management Progress Note Progress Note Text Progress Note Text: Anton was medically ready for discharge today, however when he was informed of this, he disagreed with the decision. Anton appealed his discharge by contacting [employer], the new O agency used by Medicare in the [facility]. He informed that he was not told in advance that he would be discharged and it was too soon for him. He is unsure how to get dressed with a rivas in place or how to care for it, despite teaching by the nursing staff. CM sent the required documentation to [employer]. A determination should be made within the next 24-48 hours. Discharge Potential Discharge Needs: PCP F/U Appt and Surgical F/U Appt Anticipated Barriers to Discharge: Other (patient disputing D/C) Plan: Anton will be discharged home with new home health services for nursing for catheter care and education. He will follow up with Urology and his PCP and plan of care and transport with family. Social Determinants of Health Screening Social Determinants of health last assessed in clinic: 04/25/25 Will the Patient Participate in the Screening?: Yes Do you worry about having a steady place to live?: no Problems where you live: no known problems In the past 12 months, have you had to go without electric, gas, oil or water in your home?: no 1. Within the past 12 months, we worried whether our food would run out before we got money to buy more.: Never true 2. Within the past 12 months, the food we bought just didn't last and we didn't have money to get more.: Never true Has lack of transportation kept you from medical appointments or from doing things needed for daily living?: no Has anyone in your life made you feel unsafe or unsupported?: no How hard is it for you to pay for the very basics like food, housing, medical care, and heating? Would you say it is:: Not hard at all Do you want help finding or keeping work or a job?: I do not need or want help If for any reason you need help with day-to-day activities such as bathing, preparing meals, shopping, managing finances, etc., do you get the help you need?: I don?t need any help How often do you feel lonely or isolated from those around you?: Never Do you speak a language other than Yakut at home?: No Does the patient want assistance with any of the above?: No
[2025-04-25] MEDS: Enoxaparin 40 MG/0.4 ML SYR SC (16:20)
--- NOTE | 2025-04-25 18:20 | PDOC.CMDIS ---
Date of service: 04/25/25 Time of Service: 18:20 Care Management Discharge Plan Reason for Hospitalization: dehydration, pneumomediastinum Discharge Plan: Anton will be discharged home with new home health services for nurisng. He Patient/Family Education Needs: Review discharge instructions, discuss Ask Me Three
--- NOTE | 2025-04-26 11:23 | PDOC.HHF2F ---
Home Health Referral Home Health Orders Clinical synopsis of why skilled professionals are needed: at risk patient, diagnosis of bipolar 1 Medical diagnosis necessitation home health referral: urinary retention, BPH Registered Nurse: Check all that apply Instruct on new or changed medication(s)/assess compliance: Ordered Instruct on, and maintenance of, urinary device: Ordered Assess for exacerbation of medical condition, instruct patient/caregivers on signs and symptoms to report for early detection: Ordered Home Bound Status Describe why leaving home would require a considerable and taxing effort: Confusion Encounter Date and Reason: I certify that a FTF encounter for this patient was performed on April 26, 2025 and that such encounter was related to the primary reason the patient requires home health services. The encounter was conducted in the following manner: By me as the certifying physician, CHILDREN'S MINISTER, PA or By an inpatient physician, CHILDREN'S MINISTER or PA during an inpatient stay who communicated findings to me, Certification And Authentication I certify that I composed the above information based on my clinical judgment relating to this patient's medical condition and, if applicable, clinical findings communicated to me by the NPP or inpatient physician who performed the FTF encounter. Name of Provider that will be monitoring home health services: Sha Hillman
[2025-04-28 01:56] LABS: Ascorbic Acid (Vit C), Plasma <0.1 mg/dL (0.4 - 2.0)
== END 2025-04-25 18:00 | disposition home health service (06) | DRG 683 ==
LOC: ER 15:09 → MS 15:51
PROVIDERS: Nurse Practitioner Acute Care; Nurse Practitioner Family; Admitting Provider Family Medicine; Emergency Provider Physician Assistant; PCP Nurse Practitioner Family; Responsible Provider Nurse Practitioner Acute Care; Visit Provider Family Medicine
DX: E86.0 Dehydration (principal); R63.4 Abnormal weight loss; Z68.20 Body mass index [BMI] 20.0-20.9, adult; E87.0 Hyperosmolality and hypernatremia; J98.2 Interstitial emphysema; K59.00 Constipation, unspecified; Z87.19 Personal history of other diseases of the digestive system; E87.6 Hypokalemia; R33.9 Retention of urine, unspecified; N17.9 Acute kidney failure, unspecified; F31.89 Other bipolar disorder; N40.1 Benign prostatic hyperplasia with lower urinary tract symptoms; Z79.899 Other long term (current) drug therapy; E83.41 Hypermagnesemia; K21.9 Gastro-esophageal reflux disease without esophagitis; I10 Essential (primary) hypertension; E54 Ascorbic acid deficiency; Z66 Do not resuscitate; N32.0 Bladder-neck obstruction
CPT/HCPCS: 51702; 00123; 36415; 74177; 80048; 80053; 83690; 87040; 87641; 93005; 96360; 96361; 99222; 99285; J1650; 70470; 71260; 74022; 74221; 81003; 82180; 83605; 83735; 84153; 84443; 84484; 85025; 93010; 99223; 99232; 99233; 99239; J2060; J2543

== ENCOUNTER → 2025-04-23 08:52 | Outpatient (BNVA) | payer MEDICARE, SELFPAY | PROVIDERS: PCP Nurse Practitioner Family; Referring Provider Nurse Practitioner Family; Visit Provider Urology ==

== ENCOUNTER 2025-04-26 14:22 | Emergency (ER) | payer MEDICARE, SELFPAY ==
[2025-04-26] VITALS (101 sets, daily range): BP systolic 70–115; BP diastolic 35–75; PULSE 61–99; RESP 0–31; TEMP 37.6; O2SAT 93–100
--- NOTE | 2025-04-26 14:15 | RT.EKG_ITS ---
APPROVED REPORT Exam: Resting ECG Reason for Exam: Overdose Patient Location: E HR:97 bpm ECG Measurements Heart Rate 97 AXIS SD 150 P 64 QRSd 96 QRS -47 QT 365 T 57 QTc 464 Conclusion Sinus rhythm...normal P axis, V-rate 60- 99 Atrial premature complex...SV complex w/ short R-R interval Left anterior fascicular block...axis(240,-40), init forces inf No Occlusion [place]
--- NOTE | 2025-04-26 14:21 | W.ED.GENAD ---
Discharge Plan Disposition Patient Disposition: Admit to [facility] Discharge Details Clinical Impression: Acute encephalopathy, Suicide attempt by benzodiazepine overdose, Intentional overdose of zolpidem, Increased anion gap metabolic acidosis Primary Care Provider: Sha Hillman ED Provider: Vik Palumbo Home Meds and New Rx's Prescriptions: No Action tetanus-diphtheria toxoids-Td 2-2 Lf unit/0.5 mL suspension 0.5 ml IM ONCE Qty: 0.5 0RF clonazepam 1 mg tablet 1 mg PO TID tamsulosin 0.4 mg Capsule 0.4 mg PO DAILY Qty: 30 0RF polyethylene glycol 3350 17 gram Powder In Packet 17 g PO DAILY Qty: 30 0RF amoxicillin-pot clavulanate 875-125 mg Tablet 1 tab PO BID Qty: 10 0RF HPI General Date/Time Provider Initiated Documentation: 04/26/25 14:31. HPI Narrative: MDM This is a borderline tachycardic hypotensive DNI DNR 65-year-old unintentional weight loss and recent hospitalization now with clonazepam intentional overdose for which patient will receive monitoring in the emergency department. Charge nurse care contacted poison control. Patient has an ECG that is narrow complex. Will obtain acetaminophen level at 5:30 PM check a CK level salicylate and ethanol levels. I gave patient 500 cc of crystalloid. Will place him on end-tidal CO2. He is not tachycardic nor hypertensive to suggest sympathomimetic toxidrome. He is protecting his airway at the moment and does not have pinpoint pupils so my suspicion is lower for opiate toxidrome. No pain out of proportion to suggest necrotizing soft tissue infection. Patient is confused as to the year which raise the possibility of anticholinergic toxidrome in the setting of altered mental status. He is not flushed nor warm so we will continue to monitor in the ED. He has an indwelling catheter in place which he reports is leaking. Will attempt to troubleshoot catheter after patient is observed. Given pre-existing CODE STATUS of DNI DNR will defer intubation and chest compressions. Given clonazepam and zolpidem overdose my suspicion is lower for CVA so I do not feel that the patient would be a tPA candidate. Nonetheless given altered mental status will complete CT head. 8:12 PM 4-hour acetaminophen level not climbing and stable. Patient had episodes of hypotension. I ordered a chest x-ray given recent diagnosis of pneumomediastinum. Patient continues resting. 11:04 PM Late charting due to patient care. Patient was observed in the emergency department for 6 hours. He was able to take p.o. He was alert and oriented. I initially had [facility] human services screened him. Anika reported that he was willing to go voluntarily in setting of suicidal ideation. Subsequently he had persistent soft blood pressures and intermittent episodes of acute encephalopathy which were likely related to his zolpidem overdose. As a result hospitality housekeeper Ana advocated for hospitalization. He did have very mild anion gap acidosis. Furthermore the overnight staffing in the emergency department decreases such that the patient will receive closer monitoring upstairs in the ICU. I was in touch with Dr. Fisher who graciously agreed to accept the patient for hospitalization. 11:17 p.m. Patient care update. Patient stood up ripped out his lines. He remains alert and oriented. I reassessed the patient and he. He was calm. Will keep the patient in the emergency department in zone B given that he does not have IV access and now is medically cleared. I am concerned about the possibility of patient requiring one-to-one sitters upstairs. Will reorder home medications. I placed him into ED observation. He has a regular diet and safety tray. He is a DNI DNR. I signed patient out to Dr. June. HPI The patient is a 65-year-old male who presents for evaluation of a suicide attempt. He consumed 30 mg of clonazepam and an unspecified quantity of zolpidem within the past hour. He has expressed a desire to end his life, citing concerns about being a burden to his family. His speech has become increasingly slurred since his arrival at the hospital. He is not aware of the current year. He is DNR/DNI. Additionally, he has been experiencing issues with his catheter, which has been leaking. Exam General: Elderly-appearing in no acute distress speaking in complete sentences. Head: Normocephalic, atraumatic. Eye:[Pupils equal, round reactive to light.] Extraocular eye movements intact. No conjunctival injection. No scleral icterus. Ear, nose, mouth, throat: Grossly normal inspection. Normal voice, handling secretions normally. Neck: Trachea midline. Cardiovascular: Well-perfused distal extremities. Regular rate and rhythm Respiratory: Nonlabored respiration. Clear lungs bilaterally Gastrointestinal: Nondistended abdomen. Soft nontender. Scaphoid abdomen. Musculoskeletal: No edema. Moving all 4 extremities spontaneously. Skin: Normal for age and race, grossly normal temperature and turgor. No acute rash. Neurologic: Alert to person and place but not time. Related Data Home Medications ?Medication ?Instructions ?Recorded ?Confirmed clonazepam 1 mg tablet 1 mg PO TID 10/29/24 04/20/25 tetanus-diphtheria toxoids-Td 2 Lf 0.5 ml IM ONCE #0.5 mL 03/04/25 04/20/25 unit-2 Lf unit/0.5 mL IM suspension amoxicillin 875 mg-potassium 1 tab PO BID #10 tabs 04/24/25 clavulanate 125 mg tablet polyethylene glycol 3350 17 gram 17 g PO DAILY #30 ea 04/24/25 oral powder packet tamsulosin 0.4 mg capsule 0.4 mg PO DAILY #30 caps 04/24/25 Previous Rx's ?Medication ?Instructions ?Recorded tetanus-diphtheria toxoids-Td 2 Lf 0.5 ml IM ONCE #0.5 mL 03/04/25 unit-2 Lf unit/0.5 mL IM suspension amoxicillin 875 mg-potassium 1 tab PO BID #10 tabs 04/24/25 clavulanate 125 mg tablet polyethylene glycol 3350 17 gram 17 g PO DAILY #30 ea 04/24/25 oral powder packet tamsulosin 0.4 mg capsule 0.4 mg PO DAILY #30 caps 04/24/25 Allergies Allergy/AdvReac Type Severity Reaction Status Date / Time amlodipine AdvReac Intermediate Abdominal Unverified 04/26/25 14:39 pain General BONNIE: 3 Medical Decision Making Quality:SDOH Health Related Social Needs: Health related social needs finding work Health related social needs details IS NOT EMPLOYED, DOES NOT WANT TO BE Critical Care Time Critical Care Time Critical Care Time: Yes Total Critical Care Time: 60 Attestation: Acute encephalopathy PFSH All Active Problems (Updated 04/26/25 @ 23:06 by Vik Palumbo MD) Increased anion gap metabolic acidosis (Acute) Intentional overdose of zolpidem (Acute) Suicide attempt by benzodiazepine overdose (Acute) Acute encephalopathy (Acute) Discharge planning issues (Acute) Urinary retention (Acute) PSA elevation (Chronic) Unintentional weight loss (Acute) BPH loc w/o ur obs/LUTS (Acute) Losing weight (Acute) Cholelithiasis without cholecystitis (Acute) Bipolar 1 disorder (Chronic 2020) Managed with clonazepam; psychiatrist in [place] Hypertension (Chronic) good control with Ramipril; adverse effects with amlodipine. Unable to tolerate ramipril Medical History (Updated 04/26/25 @ 23:06 by Vik Palumbo MD) Pneumomediastinum MALVIN (acute kidney injury) Hypernatremia Palliative care encounter Elevated PSA Hx of gastroesophageal reflux (GERD) resolved with weight loss Hx of sleep apnea resolved with weight loss Surgical History (Updated 11/17/24 @ 16:45 by Simona Caputo RN) History of mandibular surgery (~1997) mandible advancement for sleep apnea, [facility] Family History (Updated 11/21/24 @ 11:35 by Delia Jones MD) Mother Heart disease Father Heart disease Brother Heart disease Brother Parkinson disease Atrial fibrillation Social History (Updated 03/04/25 @ 17:09 by Renita Flores) Smoking/Tobacco Use Status: Never Second Hand Exposure: Yes Smoking risk assessment performed?: Yes Alcohol Intake: former Year quit: 1999 Drug use: Never Substance use type: does not use Counseling given: No Adopted: No Caregiver/Support person: No Household members: family Housing: apartment Number of Children: 0 Communication Needs: None Education Level: college Do you need help understanding health information?: Never current occupation: retired, varied jobs Sexually active: No Current gender identity: male What is your relationship status?: never How often do you talk on the phone with friends or family?: three or more times per week How often do you get together with friends or relatives?: three or more times per week How often do you attend tenriism or amish services?: 4 or more times per year Do you belong to any clubs or organized social groups?: decline to answer Panel score (0-1 are the most socially isolated patients): 2 NHANES result reviewed/action taken: Yes What type of physical activity do you participate in: walking, bicycling and other Details: hiking, pushups, sit ups, crunches, squats Duration: 45-60 minutes/day Frequency: daily Delia/Mandaen: Adventism Special delia needs: No Seatbelt use: always Drive intox or ride w/intox driver wheelchair: No Firearms in home: No Do you feel safe at home: Yes Do you feel safe in your relationship?: Yes
[2025-04-26 14:41] LABS: Abs Immature Grans 0.03 10^3/uL (0.0-0.06); HCT 31.2 % (40.0-50.0); HGB 10.2 g/dL (13.5-17.5); Immature Grans % 0.3 %; MCH 30.3 pg (27.0-33.0); MCHC 32.7 % (32.0-36.0); MCV 93 fL (80-95); MPV 10.2 fL (8.0-11.0); Platelet Count 136 10^3/uL (130-400); RBC 3.37 10^6/uL (4.36-5.78); RDW 13.1 % (11.8-14.1); RDW-SD 44.2 fL; WBC 9.68 10^3/uL (4.4-10.8)
[2025-04-26] MEDS: Normal Saline 500 ML 1000 ML IV (14:45)
--- NOTE | 2025-04-26 14:45 | DI.CT_ITS ---
Exam(s) CT HEAD WO EXAM: CT HEAD WO CLINICAL HISTORY: Acute encephalopathy. TECHNIQUE: Imaging Protocol: Axial computed tomography images with coronal and sagittal reformatted images were created and reviewed COMPARISON: CT CT HEAD WO/W from 04/21/2025 FINDINGS: There are no skull fractures. There is no fluid in the visualized paranasal sinuses. Cerumen is noted in both external auditory canals. There is no evidence of intracranial hemorrhage, mass effect, or shift of midline structures. There are no extra-axial fluid collections. The ventricles are not enlarged or shifted and there is no blood within the ventricular system nor within the basal cisterns. There is atrophy in what appears to be a fronto-temporal pattern. Also some symmetrical cerebellar atrophy evident. IMPRESSION: No acute intracranial findings but there is atrophy which appears to be predominately frontotemporal. Correlation with clinical symptoms recommended. Report was called by myself to ER provider 04/26/2025 at 3:20pm RADIATION DOSE DELIVERED: 957.7mGy.cm Total DLP DATA REPOSITORY: All CT scans at this facility are submitted to the National Radiology Data Registry (NRDR) Dose Index Registry (DIR) with the [employer] (ACR). RADIATION OPTIMIZATION: All CT scans at this facility use at least one of these dose optimization techniques: automated exposure control; mA and/or kV adjustment per patient size (includes targeted exams where dose is matched to clinical indication); or iterative reconstruction.
[2025-04-26 15:05] LABS: Glucose Negative (Negative)
[2025-04-26 15:09] LABS: Anion Gap 11.3 mmol/L (3-11); BUN 36 mg/dL (7-18); CO2 23.7 mmol/L (21.0-32.0); Calcium 8.1 mg/dL (8.5-10.1); Chloride 108 mmol/L (98-107); Estimated GFR 93.61 (mL/min/1.73m2); Glucose 110 mg/dL (74-106); Potassium 3.2 mmol/L (3.5-5.1); Sodium 143 mmol/L (136-145); TSH (W/Ref FT4) 2.54 uIU/mL (0.36-3.74)
[2025-04-26 15:15] LABS: Acetaminophen 3 ug/mL (10-30); Salicylate < 2.8 mg/dL (<2.8)
[2025-04-26 15:19] LABS: Cannabinoids THC Negative (Negative); METHADONE URINE SCREEN Negative (Negative)
[2025-04-26] MEDS: Normal Saline 500 ML IV ×3 (15:20→19:32)
--- NOTE | 2025-04-26 15:21 | NUR.NOTE ---
Nursing Note: Decreased LOC at approx 1500, pt's eyes now remain closed, speech more slurred and nonsensical. Sister in law at bedside, to be updated by MD. Aware NPO. CT completed, back in room on monitor. RR even, though shallow with brief periods of apnea lasting approx 10 seconds each. Pt woke enough to ask how his VS were, when replied stable he stated then I didn't take enough Klonopin and continued to ask for more. Pt rambling about , asking how it makes this nurse feel when someone dies around her. Talking about physician assisted suicide. Provider aware.
[2025-04-26 15:35] LABS: C & S Indicated? No; WBC 0-2 HPF (0-5)
--- NOTE | 2025-04-26 15:46 | NUR.NOTE ---
Pt removing wires/lines, stating can't you just give me more Klonopin? asking about euthanasia. Aware that cannot be done here, and made aware of process. Family at bedside. More awake, still confused.
[2025-04-26 18:26] LABS: Acetaminophen 3 ug/mL (10-30)
--- NOTE | 2025-04-26 18:26 | NUR.NOTE ---
Nursing Note:[phone] Alicia Burnette updated on plan of care and pt's condition. While pt was alert and able to consent, he had verbally agreed for her to be updated regarding care, without exception. Alicia states she will call back later for update. Understands that pt is being observed here in ED until back to baseline or 6 hours has passed since ingestion. Unsure how plan of care will change from that time. Alicia advocating for mental health evaluation prior to eventual discharge home. Provider aware.
--- NOTE | 2025-04-26 19:30 | DI.RAD_ITS ---
Exam(s) XR PORTABLE CHEST AP EXAM: XR PORTABLE CHEST AP CLINICAL HISTORY: Pneumomediastinum. TECHNIQUE: 2D digital imaging was performed. COMPARISON: CR,XR XR ABD FLAT UPRIGHT PA CHEST from 04/24/2025 FINDINGS: Single AP portable view. There chest leads in place. Heart size is upper normal. The mediastinum is not widened. Bilateral chronic type interstitial disease again noted. No pleural effusions. No evidence of pneumothorax and no evidence of obvious pneumomediastinum. However, there appears to be some developing infiltrate in the left parahilar region. IMPRESSION: Chronic bilateral interstitial disease. Superimposed developing infiltrate in the left lung parahilar region. No pleural effusions. No pneumothorax nor evidence of pneumomediastinum, as per request. DATA REPOSITORY: RADIATION DOSE DELIVERED:
--- NOTE | 2025-04-26 20:50 | DI.VRAD_ITS ---
PROCEDURE INFORMATION: Exam: XR Chest Exam date and time: 04/26/2025 7:49 PM Age: 65 years old Clinical indication: Other: Pneumomediastinum TECHNIQUE: Imaging protocol: Radiologic exam of the chest. Views: 1 view. COMPARISON: CR XR ABD FLAT UPRIGHT PA CHEST 04/24/2025 8:10 AM FINDINGS: Lungs: There are coarse interstitial changes seen in the lungs, stable from most recent exam. No pneumothorax or pneumomediastinum evident. Pleural spaces: See Lungs finding. Heart/Mediastinum: Unremarkable. No cardiomegaly. Bones/joints: Unremarkable. IMPRESSION: No evidence for pneumomediastinum. Interstitial changes in the lungs are stable, uncertain chronicity. Dictated and Authenticated by: Arely Pérez MD. Orderin Linwood Chery MD
--- NOTE | 2025-04-26 22:41 | PDOC.MHCN_ITS ---
Date of service: 04/26/25 Time of Service: 20:58 Suicide Severity Rate CSSRS Have you wished you were or wished you could go to sleep and not wake up?: Yes Have you actually had any thoughts of killing yourself?: Yes CSSRS2 Have you been thinking about how you might do this?: Yes Have you had these thoughts and had some intention of acting on them?: Yes Have you started to work out or worked out the details of how to kill yourself? Do you intend to carry out this plan?: Yes CSSRS3 Have you ever done anything, started to do anything or prepared to do anything to end your life?: Yes CSSRS4 Was this within the past three months?: Yes Screening Score Total Score: 8 Screening: Positive Mental Health Emergency Note Release [facility] release signed:: No Reason for Visit The client is not known to [facility]. Per report of the client he has never been hospitalized for his mental health. Today the client comes to [facility] ED via [place] after an intentional overdose of 30 1 mg tablets of Klonopin and a handful of Ambien. Per report of the client upon arrival this one an intentional overdose with intent to end his life. This fiction and nonfiction prose writer meets with the client via telehealth. In the last 2 weeks has the pt presented for ES prior to today?: No Client Information Client is: New Non Suicidal Self Injury Current: No History: No Safety Risk/Harm to Self or Others Current Ideation to Harm Self or Others: Yes to self. (The client reports persistent SI with plan and intent 10/10 if he were to leave the hospital. ) Intent: yes, has intent. Plan: yes,has a plan. History of suicide attempt: yes,history of suicide attempt reported. Details of previous suicide attempt: overdose today Risk: Does risk to harm exist?: yes. Risk: High Risk Duty to warn indicated: No Asssessment/Mental Status Appearance: Disheveled Attitude: Cooperative Behavior: Unremarkable Speech: Soft and Slurred Affect: Flat and Cogruent with mood Mood: Sad, Stressed, Depressed and Anxious Thought process: Unremarkable Hallucinations: No Delusions: No Attention: Unremarkable Perception: Not impaired Orientation: Fully orientated Memory: Intact Insight: Poor Judgement: Poor Neurovegetative Symptoms Sleep: No change Appetitie: No change Interests: Decrease Energy: Decrease Libido: Not applicable Substance Use: Do you use nicotine?: No Have you used substances in the last 7 days?: No Additional Issues: Assaultive/Threatening Behavior: No Medical Concerns: Yes Client engaged in active self harm w/weapon: No Threatening to run away: No Child reported abuse/neglect: No Voluntarily presenting for services: Yes Domestic violence is a concern: No Extreme Psychosis or extreme behavior is present: No Impression The client is a single 65 y/o male that resides in [place], [place] with family members. The client identifies as male and uses he/ him pronouns. Screening tools were unable to be completed due to the clients current altered mental status. The client is laying down in the hospital bed when this fiction and nonfiction prose writer arrives via telehealth. The client is not oriented to place or time stating: I don't have any clue where I am. The client reports that he was supposed to no longer be here as he attempted to end his life. The client states: I was covered in pee, felt like hell, and couldn't think straight. I cannot continue to live like that. I have seen and done everything I wanted to do in life, what is even the point in continuing to live. The client adamantly states that if he were to try to leave he would attempt to end his life again. Per report of [facility] ED attending provider Dr. Palumbo the client currently has numerus medical issues going on including a catheter and was covered in urine upon his arrival to the ED. Dr. Palumbo reports that the client was recently hospitalized at [facility] due to dehydration after not eating or drinking for several days. Based on this writers assessment the client is at imminent risk. The client is agreeable to stay at [facility] ED and seek voluntary inpatient treatment. Plan/Disposition Recommended Disposition: Hospitalization No. Plan: The client will remain at [facility] ED seeking voluntary treatment. The client will be re-assessed daily until placement is secured or he is able to be safety planned back to the community. The client is agreeable to this plan. If the client wants to leave or attempts to leave an EE should be considered. Person reported agreement to plan: Yes Reports/communication Outcome discussed with: ED/Personnel (Verbal given to ED provider Dr. Palumbo)
--- NOTE | 2025-04-27 02:09 | NUR.NOTE ---
Nursing Note: Late entry: approx 2300. Pt up several times, difficult to redirect. Has ripped out IV lines x 2 and all monitoring equipment. Large blood amount on sheets cleaned from traumatic IV removal, linen changed and dressings applied. Oriented to self and place only, not oriented to time. Unable to stand/walk unassisted. Provider aware. Tolerated drinking small amount of water, did not feel like eating food. Mouth care provided. Pt noted to be elevating legs above bladder several times, despite attempted redirection with rivas in place. Pt stated it's fine, I don't care. Has spoken with mental health via tablet. Not in room for interview, slow, slurred, rambling speech heard briefly when in to check if still credit control manager.
--- NOTE | 2025-04-27 02:45 | NUR.NOTE ---
Nursing Note:{Poison control updated once again, will check in for final dispo sometime later today.
--- NOTE | 2025-04-27 07:50 | ED.PSYCHBOAR ---
Date of service: 04/27/25 Time of Service: 07:50 Psychiatric Border Handoff Update Brief Story: 65-year-old gentleman with past medical history of hypertension bipolar disorder presented yesterday for evaluation of intentional overdose with multiple medications. At this time patient is medically cleared and has been evaluated by mental health services. He is pending voluntary inpatient psychiatric admission. Status: voluntary Able to leave: would need physician/MAGALI and crisis evaluation prior to leaving Code Status ordered: Yes Diet ordered: Yes Discharge Plan Disposition Patient Disposition: Psychiatric Hospital/Unit Specific Psychiatric Facility: Other Discharge Details Clinical Impression: Acute encephalopathy, Suicide attempt by benzodiazepine overdose, Intentional overdose of zolpidem, Increased anion gap metabolic acidosis Primary Care Provider: Sha Hillman ED Provider: Baljeet Cota Home Meds and New Rx's Prescriptions: No Action tetanus-diphtheria toxoids-Td 2-2 Lf unit/0.5 mL suspension 0.5 ml IM ONCE Qty: 0.5 0RF clonazepam 1 mg tablet 1 mg PO TID tamsulosin 0.4 mg Capsule 0.4 mg PO DAILY Qty: 30 0RF polyethylene glycol 3350 17 gram Powder In Packet 17 g PO DAILY Qty: 30 0RF amoxicillin-pot clavulanate 875-125 mg Tablet 1 tab PO BID Qty: 10 0RF
--- NOTE | 2025-04-27 12:47 | CMSP_ITS ---
Date of service: 04/27/25 Time of Service: 10:15 Care Management Safety Plan Status Status: Voluntary Reason for Wait Reason for Wait: Inpatient Admission Safety Plan Safety Plan: VOLUNTARY FOR INPATIENT PSYCHIATRIC STABILIZATION.? Patient is appropriate in all interactions since arriving at [facility]; Pt has demonstrated appropriate coping and communication skills, has articulated his or her needs and concerns and is fully engaged during staff interactions. Safety plan has been established with patient, and care team, to adhere to patient goals, identify restrictions based on behavioral status, address nutrition, and determine allowed personal belongings, tools for hygiene and personal care. Determine level of activity including ambulation, level of superv ision, visitors, and determine privileges based on behaviors and level of engagement by pt. VOLUNTARY SAFETY PLAN: 1. Will remain on suicide precautions, in paper clothes 2. Will remain in Zone B under direct supervision of one-on-one staff at all times provided by [employer]; HANG, WAFER FABRICATION OPERATOR active directory systems administrator. 3. May have paper cups, plates, finger foods as well as a cardboard spoon with which to eat meals. 4. Follow [facility] Management of the Admitted Behavioral Health Patient policy. 5. Shower available in Zone B without restriction. 6. Personal belongings-soft items permitted at RN discretion. 7. Visitors-none at this time - sister in [place] martínez, jaimee visit. 8. Activities: soft cart items, hospital tablets (Netflix/Clifton+/music) approved per RN discretion. 9.? Bathroom available in Zone B without restriction. 10. Phone: limited to [facility] cordless phone at RN discretion. Due to VOLUNTARY status, if patient wishes to leave [facility], staff will contact [facility] Crisis Screener ([phone]) and Biomechanical Engineer ([phone]) as soon as possible. In the event of elopement, notify [place] [employer] ([phone]). Patient is currently voluntarily at [facility] and seeking inpatient admission when a bed becomes available. [facility] Frontline Crew Boss will continue seeking placement. Please contact the Biomechanical Engineer ([phone]) and [facility] Crew Boss ([phone]) for any needed changes in the Safety Plan. Safety plan has been provided to interdepartmental care team.
--- NOTE | 2025-04-27 12:47 | PDOC.CMSAFE ---
Date of service: 04/27/25 Time of Service: 10:15 Care Management Safety Plan Status Status: Voluntary Reason for Wait Reason for Wait: Inpatient Admission Safety Plan Safety Plan: VOLUNTARY FOR INPATIENT PSYCHIATRIC STABILIZATION.? Patient is appropriate in all interactions since arriving at [facility]; Pt has demonstrated appropriate coping and communication skills, has articulated his or her needs and concerns and is fully engaged during staff interactions. Safety plan has been established with patient, and care team, to adhere to patient goals, identify restrictions based on behavioral status, address nutrition, and determine allowed personal belongings, tools for hygiene and personal care. Determine level of activity including ambulation, level of supervision, visitors, and determine privileges based on behaviors and level of engagement by pt. VOLUNTARY SAFETY PLAN: 1. Will remain on suicide precautions, in paper clothes 2. Will remain in Zone B under direct supervision of one-on-one staff at all times provided by [employer]; HANG, TAGMAN generator switchboard operator. 3. May have paper cups, plates, finger foods as well as a cardboard spoon with which to eat meals. 4. Follow [facility] Management of the Admitted Behavioral Health Patient policy. 5. Shower available in Zone B without restriction. 6. Personal belongings-soft items permitted at RN discretion. 7. Visitors-none at this time - sister in Whitley martínez, jaimee visit. 8. Activities: soft cart items, hospital tablets (Netflix/Hatteras+/music) approved per RN discretion. 9.? Bathroom available in Zone B without restriction. 10. Phone: limited to [facility] cordless phone at RN discretion. Due to VOLUNTARY status, if patient wishes to leave [facility], staff will contact [facility] Crisis Screener ([phone]) and Test Puller ([phone]) as soon as possible. In the event of elopement, notify [place] [employer] ([phone]). Patient is currently voluntarily at [facility] and seeking inpatient admission when a bed becomes available. [facility] Frontline Product Design Engineer will continue seeking placement. Please contact the Test Puller ([phone]) and [facility] Product Design Engineer ([phone]) for any needed changes in the Safety Plan. Safety plan has been provided to interdepartmental care team.
--- NOTE | 2025-04-27 13:02 | PDOC.CMPRO ---
Date of service: 04/27/25 Time of Service: 11:00 Care Management Progress Note Progress Note Text Progress Note Text: CM met with [facility] cut off worker, Zone B staff and [employer] pastry supervisor. Anton is being held on a voluntary basis, but should he try to leave he will be EE'd. Referrals have been sent to [facility], [facility], and [facility]. Sister - in - law Alicia called [facility] and asked about a transfer to [facility] in [place], where he has been before. Alicia was informed of the referrals that were already sent. Ailcia may try to get treatment for Anton in [place], but she was informed that we could not transfer him there if there is a bed nearby that is available. Alicia is willing to pursue a bed for Anton on her own. Social Determinants of Health Screening Social Determinants of health last assessed in clinic: 04/27/25 Will the Patient Participate in the Screening?: Yes Do you worry about having a steady place to live?: no Problems where you live: no known problems In the past 12 months, have you had to go without electric, gas, oil or water in your home?: no 1. Within the past 12 months, we worried whether our food would run out before we got money to buy more.: Don't know/refused 2. Within the past 12 months, the food we bought just didn't last and we didn't have money to get more.: Don't know/refused Has lack of transportation kept you from medical appointments or from doing things needed for daily living?: no Has anyone in your life made you feel unsafe or unsupported?: no How hard is it for you to pay for the very basics like food, housing, medical care, and heating? Would you say it is:: Not hard at all Do you want help finding or keeping work or a job?: Yes, help keeping work If for any reason you need help with day-to-day activities such as bathing, preparing meals, shopping, managing finances, etc., do you get the help you need?: I don?t need any help How often do you feel lonely or isolated from those around you?: Never Do you speak a language other than Icelandic at home?: No Does the patient want assistance with any of the above?: No Health Related Social Needs Health related social needs: problems finding work (Z56.9) Health related social needs details: IS NOT EMPLOYED, DOES NOT WANT TO BE
[2025-04-27] MEDS: Tamsulosin 0.4 MG CAPCR PO (14:23)
--- NOTE | 2025-04-27 15:21 | NUR.NOTE ---
While assisting patient back to his bed, he mentioned that he would like to be on end of life care. He was slurring his words a bit and then mentioned he wanted to be in [facility]. When asked why he stated he wanted to be over there to fight and wither away afterwards.
--- NOTE | 2025-04-27 15:31 | PDOC.MHPN2 ---
Date of service: 04/27/25 Time of Service: 11:00 Suicide Severity Rate CSSRS Have you wished you were or wished you could go to sleep and not wake up?: Yes Have you actually had any thoughts of killing yourself?: Yes CSSRS2 Have you been thinking about how you might do this?: Yes Have you had these thoughts and had some intention of acting on them?: Yes Have you started to work out or worked out the details of how to kill yourself? Do you intend to carry out this plan?: Yes CSSRS3 Have you ever done anything, started to do anything or prepared to do anything to end your life?: Yes CSSRS4 Was this within the past three months?: Yes Screening Score Total Score: 8 Screening: Positive Mental Health Emergency Note Release [facility] release signed:: Yes Reason for Visit In the last 2 weeks has the pt presented for ES prior to today?: No Risk: Does risk to harm exist?: yes. Access to means: Yes. Types of Means: Medication. Counseling provided: Yes Risk: High Risk Asssessment/Mental Status Appearance: Disheveled Attitude: Friendly and Hostile Behavior: Unremarkable Speech: Slurred Affect: Normal Mood: Stressed Thought process: Unremarkable Hallucinations: No Delusions: No Attention: Unremarkable Perception: Not impaired Orientation: Fully orientated Memory: Impaired in: Immediate and Recent Insight: Fair Judgement: Fair Neurovegetative Symptoms Sleep: Decrease Appetitie: Decrease Interests: Decrease Energy: Decrease Libido: Not applicable Additional Issues: Assaultive/Threatening Behavior: No Medical Concerns: Yes Client engaged in active self harm w/weapon: No Threatening to run away: No Voluntarily presenting for services: Yes Domestic violence is a concern: No Extreme Psychosis or extreme behavior is present: No Impression Mr Burnette is a 65 year old single male who currently resides in [facility] with family members. The client presented as both hostile and friendly and would switch between being frustrated around being asked questions and grateful for someone caring. The client reports that he wishes he would but does not have a plan at this point I want to be and It could be the end of life I hope stated when referring to all of his medical problems. The client reports that he is in physical pain from his medical problems. The client referred to his sister in law who was visiting as his friend during this assessment and stated that his memory is going and recalling words is hard. The client reports that he would like to get therapy and find mary in life again. The client will wait voluntarily at the [facility] ED for in patient placement. Plan/Disposition Recommended Disposition: Hospitalization facilities contacted. Plan: client will wait for in patient treatment at [facility] zone b. Reports/communication Outcome discussed with: ED/Personnel
--- NOTE | 2025-04-27 16:14 | NUR.NOTE ---
Pt has made several comments today requesting we let him fall to hit his head. Pt does not elaborate on this request but becomes very depressed when we tell him this is not an option. Pt also started wandering around room, when I approached Pt he acted like he was going to fall backwards and was caught mid fall. No injury from incident. Nursing Note:
[2025-04-27] MEDS: clonazePAM 1 MG TAB PO (20:33)
--- NOTE | 2025-04-28 07:06 | ED.PSYCHBOAR ---
Date of service: 04/28/25 Time of Service: 07:06 Psychiatric Border Handoff Update Brief Story: 2 days status post intentional overdose currently medically cleared. Patient remains in ED pending inpatient psychiatric admission, currently voluntary but would qualify for involuntary if wants to leave. 7:45 AM Patient requested something for acid reflux for which I prescribed him 40 mg of daily famotidine. 4:40 PM Late charting due to patient care. I reassessed the patient as he reportedly slid out of a chair in zone B. He did not hit his head. He did not lose consciousness. He had nontender back. He had no signs of bruising on his back nor his lower extremities. He was not vomiting. Will continue to monitor. I signed patient out to Dr. Cat. Status: voluntary Able to leave: would need physician/MAGALI and crisis evaluation prior to leaving Behavioral Concerns: None Potential Disposition: Pending placement Medical Concerns: None Mediation Reconciliation performed: Yes Code Status ordered: Yes Diet ordered: Yes Discharge Plan Disposition Patient Disposition: Psychiatric Hospital/Unit Specific Psychiatric Facility: Other Discharge Details Clinical Impression: Acute encephalopathy, Suicide attempt by benzodiazepine overdose, Intentional overdose of zolpidem, Increased anion gap metabolic acidosis Primary Care Provider: Sha Hillman ED Provider: Vik Palumbo
[2025-04-28] MEDS: Famotidine 20 MG TAB 40 MG PO (07:52)
--- NOTE | 2025-04-28 08:09 | NUR.NOTE ---
0745 PT given meal tray. PT states that he doesn't want to eat at this time. PT encouraged to eat. Nursing Note:
[2025-04-28] MEDS: Tamsulosin 0.4 MG CAPCR PO (08:25)
[2025-04-28] MEDS: clonazePAM 1 MG TAB PO ×3 (08:25→19:57)
[2025-04-28 08:36] VITALS: BP 112/67; PULSE 72; RESP 18; O2SAT 99
--- NOTE | 2025-04-28 09:10 | NUR.NOTE ---
PT on phone with [facility] Nursing Note:
[2025-04-28 10:25] VITALS: RESP 18
--- NOTE | 2025-04-28 10:42 | NUR.NOTE ---
at 1025 PT was seated at the stool for the desk in the zone b room. PTs family member had just arrived to visit with PT. PT fell back off of the stool and landed on his back. PT denies hitting his head. PT had no LOC. PT was assisted back into bed. PT has no new obvious injuries. ED MD notified. PT had made remarks earlier about wanted to hurt himself by falling and hitting his head. Nursing Note:
--- NOTE | 2025-04-28 12:43 | CMSP_ITS ---
Date of service: 04/28/25 Time of Service: 12:43 Care Management Safety Plan Status Status: Voluntary Reason for Wait Reason for Wait: Inpatient Admission Safety Plan Safety Plan: VOLUNTARY FOR INPATIENT PSYCHIATRIC STABILIZATION.? Patient is appropriate in all interactions since arriving at [facility]; Pt has demonstrated appropriate coping and communication skills, has articulated his or her needs and concerns and is fully engaged during staff interactions. Safety plan has been established with patient, and care team, to adhere to patient goals, identify restrictions based on behavioral status, address nutrition, and determine allowed personal belongings, tools for hygiene and personal care. Determine level of activity including ambulation, level of supervision, visitors, and determine privileges based on behaviors and level of engagement by pt. VOLUNTARY SAFETY PLAN: 1. Will remain on suicide precautions, in paper clothes 2. Will remain in Zone B under direct supervision of one-on-one staff at all times provided by [employer]; HANG, PRODUCT ASSURANCE ENGINEER burglar alarm inspector. 3. May have paper cups, plates, finger foods as well as a cardboard spoon with which to eat meals. 4. Follow [facility] Management of the Admitted Behavioral Health Patient policy. 5. Shower available in Zone B without restriction. 6. Personal belongings-soft items permitted at RN discretion. 7. Visitors- sister in law, Whitley, and Anton's lining parts sewer, may visit. 8. Activities: soft cart items, hospital tablets (Netflix/Heyburn+/music) approved per RN discretion. 9.? Bathroom available in Zone B without restriction. 10. Phone: limited to [facility] cordless phone at RN discretion. Due to VOLUNTARY status, if patient wishes to leave [facility], staff will contact [facility] Crisis Screener ([phone]) and Receivables Specialist ([phone]) as soon as possible. In the event of elopement, notify [place] State [employer] ([phone]). Patient is currently voluntarily at [facility] and seeking inpatient admission when a bed becomes available. [facility] Frontline Gasoline Tester will continue seeking placement. Please contact the Receivables Specialist ([phone]) and [facility] Gasoline Tester ([phone]) for any needed changes in the Safety Plan. Safety plan has been provided to interdepartmental care team.
--- NOTE | 2025-04-28 12:43 | PDOC.CMSAFE ---
Date of service: 04/28/25 Time of Service: 12:43 Care Management Safety Plan Status Status: Voluntary Reason for Wait Reason for Wait: Inpatient Admission Safety Plan Safety Plan: VOLUNTARY FOR INPATIENT PSYCHIATRIC STABILIZATION.? Patient is appropriate in all interactions since arriving at [facility]; Pt has demonstrated appropriate coping and communication skills, has articulated his or her needs and concerns and is fully engaged during staff interactions. Safety plan has been established with patient, and care team, to adhere to patient goals, identify restrictions based on behavioral status, address nutrition, and determine allowed personal belongings, tools for hygiene and personal care. Determine level of activity including ambulation, level of supervision, visitors, and determine privileges based on behaviors and level of engagement by pt. VOLUNTARY SAFETY PLAN: 1. Will remain on suicide precautions, in paper clothes 2. Will remain in Zone B under direct supervision of one-on-one staff at all times provided by [employer]; HANG, SKETCH ARTIST teacher advisor. 3. May have paper cups, plates, finger foods as well as a cardboard spoon with which to eat meals. 4. Follow [facility] Management of the Admitted Behavioral Health Patient policy. 5. Shower available in Zone B without restriction. 6. Personal belongings-soft items permitted at RN discretion. 7. Visitors- sister in law, Whitley, and Anton's dot compliance coordinator, may visit. 8. Activities: soft cart items, hospital tablets (Netflix/[place]+/music) approved per RN discretion. 9.? Bathroom available in Zone B without restriction. 10. Phone: limited to [facility] cordless phone at RN discretion. Due to VOLUNTARY status, if patient wishes to leave [facility], staff will contact [facility] Crisis Screener ([phone]) and Artist Woodblock ([phone]) as soon as possible. In the event of elopement, notify [place] [employer] ([phone]). Patient is currently voluntarily at [facility] and seeking inpatient admission when a bed becomes available. [facility] Frontline Pet Caregiver will continue seeking placement. Please contact the Artist Woodblock ([phone]) and [facility] Pet Caregiver ([phone]) for any needed changes in the Safety Plan. Safety plan has been provided to interdepartmental care team.
--- NOTE | 2025-04-28 12:45 | CMPROGNOTE_ITS ---
Date of service: 04/28/25 Time of Service: 12:45 Care Management Progress Note Progress Note Text Progress Note Text: CM huddled with [facility] and [facility] staff regarding Anton's plan of care. Per RN, Anton continues to show disinterest in hospital food, but did accept f ood from [employer] that his sister brought in, and reportedly ate a muffin. He also received a visit from his outside physical damage appraiser today, at his request; his outside physical damage appraiser was added to his safety plan as an approved visitor. Per [facility], Anton is voluntary, but [facility] would likely seek an EE if he asks to leave. Per [facility], referrals were sent to [facility]; CM inquired about sending referrals to [facility] due to his age, but this is not being pursued at this time. Per, [facility], will discuss this with his co supervisor grounds and landscape. Anton is currently voluntary, seeking inpatient psychiatric treatment. Referrals were sent to [facility]. Safety plan in place. CM will continue to follow. Social Determinants of Health Screening Social Determinants of health last assessed in clinic: 04/28/25 Will the Patient Participate in the Screening?: Yes Do you worry about having a steady place to live?: no Problems where you live: no known problems In the past 12 months, have you had to go without electric, gas, oil or water in your home?: no 1. Within the past 12 months, we worried whether our food would run out before we got money to buy more.: Don't know/refused 2. Within the past 12 months, the food we bought just didn't last and we didn't have money to get more.: Don't know/refused Has lack of transportation kept you from medical appointments or from doing things needed for daily living?: no Has anyone in your life made you feel unsafe or unsupported?: no How hard is it for you to pay for the very basics like food, housing, medical care, and heating? Would you say it is:: Not hard at all Do you want help finding or keeping work or a job?: Yes, help keeping work If for any reason you need help with day-to-day activities such as bathing, preparing meals, shopping, managing finances, etc., do you get the help you need?: I don?t need any help How often do you feel lonely or isolated from those around you?: Never Do you speak a language other than Tamazight at home?: No Does the patient want assistance with any of the above?: No Health Related Social Needs Health related social needs: problems finding work (Z56.9) Health related social needs details: IS NOT EMPLOYED, DOES NOT WANT TO BE
--- NOTE | 2025-04-28 14:51 | MHPN_ITS ---
Date of service: 04/28/25 Time of Service: 11:00 Mental Health Emergency Note Release [facility] release signed:: Yes Reason for Visit In the last 2 weeks has the pt presented for ES prior to today?: No Asssessment/Mental Status Appearance: Unremarkable Attitude: Cooperative and Friendly Behavior: Unremarkable Speech: Pressured Affect: Expansive Mood: Stressed and Depressed Thought process: Unremarkable Hallucinations: No Delusions: No Attention: Unremarkable Perception: Not impaired Orientation: Fully orientated Memory: Intact Insight: Fair Judgement: Fair Neurovegetative Symptoms Sleep: No change Appetitie: No change Interests: No change Energy: No change Libido: Not applicable Additional Issues: Assaultive/Threatening Behavior: No Medical Concerns: Yes Client engaged in active self harm w/weapon: No Threatening to run away: No Child reported abuse/neglect: No Voluntarily presenting for services: Yes Domestic violence is a concern: No Extreme Psychosis or extreme behavior is present: No Impression Mr Burnette is a 65 year old single male who resides in [place] with his siter in law. The client reports that he ate some maple cream donuts for breakfast. The client states that he the hospital gives me too much food at one time and he likes to eat just some food. The client states that he slept well last night. The client reports falling as his chair was slippery. [facility] nurses report that the client has stated he wants to fall and hit his head. The client reports that he still wants to as he is in physical pain and cannot do the things he wants to do. The client states that he wants an x-ray on his stomach as he is having stomach pain and that he conveyed this to his doctor. The client reports being anxious and stressed around the new budget that [place] has created and is worried about his medicare. The client states he would like to go to [facility] for in patient treatment if possible. The client is still voluntarily seeking in patient treatment. Plan/Disposition Recommended Disposition: Hospitalization facilities contacted. Plan: The client will wait for in patient treatment at [facility]. Reports/communication Outcome discussed with: ED/Personnel
--- NOTE | 2025-04-28 22:37 | ED.PROG_ITS ---
Date of service: 04/28/25 Time of Service: 22:37 Medical Decision Making This patient was signed out to me by Dr. Cat. Please see previous notes for H&P and initial eval. In brief, 65yo M presenting with suicide attempt via benzodiazapene overdose, medically cleared, pending voluntary inpatient placement. Likely meets involuntary criteria should he wish to leave. Overnight no acute events. Will be signed out to oncoming physician; plan remains as above. Quality:SDOH Health Related Social Needs: Health related social needs finding work Health related social needs details IS NOT EMPLOYED, D OES NOT WANT TO BE Discharge Plan Disposition Patient Disposition: Psychiatric Hospital/Unit Specific Psychiatric Facility: Other Discharge Details Clinical Impression: Acute encephalopathy, Suicide attempt by benzodiazepine overdose, Intentional overdose of zolpidem, Increased anion gap metabolic acidosis Primary Care Provider: Sha Hillman ED Provider: Sita Murphy
--- NOTE | 2025-04-29 07:03 | ED.PSYCHBOAR ---
Date of service: 04/29/25 Time of Service: 07:03 Psychiatric Border Handoff Update Brief Story: 65-year-old gentleman with intentional overdose. Medically cleared and pending voluntary inpatient psychiatric placement. Status: voluntary Able to leave: would need physician/MAGALI and crisis evaluation prior to leaving Behavioral Concerns: None today Discharge Plan Disposition Patient Disposition: Psychiatric Hospital/Unit Specific Psychiatric Facility: Other Discharge Details Clinical Impression: Acute encephalopathy, Suicide attempt by benzodiazepine overdose, Intentional overdose of zolpidem, Increased anion gap metabolic acidosis Primary Care Provider: Sha Hillman ED Provider: Baljeet Cota
[2025-04-29] MEDS: clonazePAM 1 MG TAB PO ×3 (09:13→20:25)
[2025-04-29] MEDS: Famotidine 20 MG TAB 40 MG PO (09:13)
[2025-04-29] MEDS: Polyethylene Glycol 3350 17 GM PACKET PO (09:13)
[2025-04-29] MEDS: Tamsulosin 0.4 MG CAPCR PO (09:13)
[2025-04-29 09:28] VITALS: BP 116/73; PULSE 67; RESP 18; TEMP 36.3; O2SAT 97
--- NOTE | 2025-04-29 13:27 | CMSP_ITS ---
Date of service: 04/29/25 Time of Service: 13:27 Care Management Safety Plan Status Status: Voluntary Reason for Wait Reason for Wait: Inpatient Admission Safety Plan Safety Plan: VOLUNTARY FOR INPATIENT PSYCHIATRIC STABILIZATION.? Patient is appropriate in all interactions since arriving at [facility]; Pt has demonstrated appropriate coping and communication skills, has articulated his or her needs and concerns and is fully engaged during staff interactions. Safety plan has been established with patient, and care team, to adhere to patient goals, identify restrictions based on behavioral status, address nutrition, and determine allowed personal belongings, tools for hygiene and personal care. Determine level of activity including ambulation, level of supervision, visitors, and determine privileges based on behaviors and level of engagement by pt. VOLUNTARY SAFETY PLAN: 1. Will remain on suicide precautions, in paper clothes 2. Will remain in Zone B under direct supervision of one-on-one staff at all times provided by [employer]; HANG, NAIL GALVANIZER hardware installation coordinator. 3. May have paper cups, plates, finger foods as well as a cardboard spoon with which to eat meals. 4. Follow [facility] Management of the Admitted Behavioral Health Patient policy. 5. Shower available in Zone B without restriction. 6. Personal belongings-soft items permitted at RN discretion. 7. Visitors- sister in law, Whitley, and Anton's scale manager, may visit. 8. Activities: soft cart items, hospital tablets (Netflix/[place]+/music) approved per RN discretion. 9.? Bathroom available in Zone B without restriction. 10. Phone: limited to [facility] cordless phone at RN discretion. Due to VOLUNTARY status, if patient wishes to leave [facility], staff will contact [facility] Crisis Screener ([phone]) and Craniologist ([phone]) as soon as possible. In the event of elopement, notify [place] [employer] ([phone]). Patient is currently voluntarily at [facility] and seeking inpatient admission when a bed becomes available. [facility] Frontline Home Health Cna will continue seeking placement. Please contact the Craniologist ([phone]) and [facility] Home Health Cna ([phone]) for any needed changes in the Safety Plan. Safety plan has been provided to interdepartmental care team.
--- NOTE | 2025-04-29 13:27 | PDOC.CMSAFE ---
Date of service: 04/29/25 Time of Service: 13:27 Care Management Safety Plan Status Status: Voluntary Reason for Wait Reason for Wait: Inpatient Admission Safety Plan Safety Plan: VOLUNTARY FOR INPATIENT PSYCHIATRIC STABILIZATION.? Patient is appropriate in all interactions since arriving at [facility]; Pt has demonstrated appropriate coping and communication skills, has articulated his or her needs and concerns and is fully engaged during staff interactions. Safety plan has been established with patient, and care team, to adhere to patient goals, identify restrictions based on behavioral status, address nutrition, and determine allowed personal belongings, tools for hygiene and personal care. Determine level of activity including ambulation, level of supervision, visitors, and determine privileges based on behaviors and level of engagement by pt. VOLUNTARY SAFETY PLAN: 1. Will remain on suicide precautions, in paper clothes 2. Will remain in Zone B under direct supervision of one-on-one staff at all times provided by [employer]; HANG, EMBOSSING PRESS OPERATOR MOLDED GOODS sort manager. 3. May have paper cups, plates, finger foods as well as a cardboard spoon with which to eat meals. 4. Follow [facility] Management of the Admitted Behavioral Health Patient policy. 5. Shower available in Zone B without restriction. 6. Personal belongings-soft items permitted at RN discretion. 7. Visitors- sister in law, Whitley, and Anton's keyboard operator, may visit. 8. Activities: soft cart items, hospital tablets (Netflix/[place]+/music) approved per RN discretion. 9.? Bathroom available in Zone B without restriction. 10. Phone: limited to [facility] cordless phone at RN discretion. Due to VOLUNTARY status, if patient wishes to leave [facility], staff will contact [facility] Crisis Screener ([phone]) and Agricultural Inspector ([phone]) as soon as possible. In the event of elopement, notify [place] [employer] ([phone]). Patient is currently voluntarily at [facility] and seeking inpatient admission when a bed becomes available. [facility] Frontline Machine Repairman will continue seeking placement. Please contact the Agricultural Inspector ([phone]) and [facility] Machine Repairman ([phone]) for any needed changes in the Safety Plan. Safety plan has been provided to interdepartmental care team.
--- NOTE | 2025-04-29 13:28 | CMPROGNOTE_ITS ---
Date of service: 04/29/25 Time of Service: 13:28 Care Management Progress Note Progress Note Text Progress Note Text: CM huddled with [facility] and [facility] staff regarding Anton's plan of care. Per RN, he has been cooperative and engaging well in conversation. His sister in law has been visiting and bringing him dino donuts. Per report, he ate all of his breakfast today. Per NK, Anton continues to make statements about wanting his life to end. Per [facility], Anton's engagement appeared to be improved today, and he seemed to be in better spirits. Per stated that referrals were sent to [facility] and [facility] today; CM helped facilitate the referral to [facility], and will follow up tomorrow. Anton is voluntary, seeking inpatient psychiatric treatment. Referrals have been sent to all facilities, including geriatric psych in [place]. He has been declined by [facility] due to medical comorbidities. Safety plan in place while awaiting placement. CM will continue to follow. Social Determinants of Health Screening Social Determinants of health last assessed in clinic: 04/29/25 Will the Patient Participate in the Screening?: Yes Do you worry about having a steady place to live?: no Problems where you live: no known problems In the past 12 months, have you had to go without electric, gas, oil or water in your home?: no 1. Within the past 12 months, we worried whether our food would run out before we got money to buy more.: Don't know/refused 2. Within the past 12 months, the food we bought just didn't last and we didn't have money to get more.: Don't know/refused Has lack of transportation kept you from medical appointments or from doing things needed for daily living?: no Has anyone in your life made you feel unsafe or unsupported?: no How hard is it for you to pay for the very basics like food, housing, medical care, and heating? Would you say it is:: Not hard at all Do you want help finding or keeping work or a job?: Yes, help keeping work If for any reason you need help with day-to-day activities such as bathing, preparing meals, shopping, managing finances, etc., do you get the help you need?: I don?t need any help How often do you feel lonely or isolated from those around you?: Never Do you speak a language other than Qatari at home?: No Does the patient want assistance with any of the above?: No Health Related Social Needs Health related social needs: problems finding work (Z56.9) Health related social needs details: IS NOT EMPLOYED, DOES NOT WANT TO BE
[2025-04-29 19:30] VITALS: BP 102/63; PULSE 69; RESP 20; TEMP 37.1; O2SAT 99
[2025-04-30] MEDS: Calcium Carbonate *TUMS* 500 MG CHEW 1000 MG PO (00:05)
[2025-04-30 04:24] VITALS: BP 111/70; PULSE 72; RESP 20; TEMP 36.7; O2SAT 98
--- NOTE | 2025-04-30 07:31 | ED.PSYCHBOAR ---
Date of service: 04/30/25 Time of Service: 07:31 Psychiatric Border Handoff Update Brief Story: Suicide attempt following medication overdose pending placement no active behavioral issues last shift. Status: voluntary Able to leave: would need physician/MAGALI and crisis evaluation prior to leaving Behavioral Concerns: None Potential Disposition: Referrals placed Medical Concerns: None Mediation Reconciliation performed: Yes Code Status ordered: Yes Diet ordered: Yes Future to do Items: Follow-up placement. 1:45 PM I had a huddle in zone B with Milagros from [facility], Ilda Castrejon from care management, char house supervisor ED charge nurse and patient's of the nurse. Patient had been offered a bed at the [facility]. He declined. Given suicide attempt on benzodiazepines will engage with telepsych. [facility] will pursue safety plan. 4:35 PM Patient still pending psychiatric consult. Will sign patient out to Dr. Chavez. Discharge Plan Disposition Patient Disposition: Psychiatric Hospital/Unit Specific Psychiatric Facility: Other Discharge Details Clinical Impression: Acute encephalopathy, Suicide attempt by benzodiazepine overdose, Intentional overdose of zolpidem, Increased anion gap metabolic acidosis Primary Care Provider: Sha Hillman ED Provider: Vik Palumbo
[2025-04-30 07:43] VITALS: BP 124/75; PULSE 77; RESP 20; TEMP 35.8; O2SAT 99
[2025-04-30] MEDS: clonazePAM 1 MG TAB PO ×3 (08:17→20:42)
[2025-04-30] MEDS: Famotidine 20 MG TAB 40 MG PO (08:18)
[2025-04-30] MEDS: Tamsulosin 0.4 MG CAPCR PO (08:18)
[2025-04-30] MEDS: Polyethylene Glycol 3350 17 GM PACKET PO (08:35)
--- NOTE | 2025-04-30 12:57 | CMSP_ITS ---
Date of service: 04/30/25 Time of Service: 12:57 Care Management Safety Plan Status Status: Voluntary Reason for Wait Reason for Wait: Inpatient Admission Safety Plan Safety Plan: VOLUNTARY FOR INPATIENT PSYCHIATRIC STABILIZATION.? Patient is appropriate in all interactions since arriving at [facility]; Pt has demonstrated appropriate coping and communication skills, has articulated his or her needs and concerns and is fully engaged during staff interactions. Safety plan has been established with patient, and care team, to adhere to patient goals, identify restrictions based on behavioral status, address nutrition, and determine allowed personal belongings, tools for hygiene and personal care. Determine level of activity including ambulation, level of supervision, visitors, and determine privileges based on behaviors and level of engagement by pt. VOLUNTARY SAFETY PLAN: 1. Will remain on suicide precautions, in paper clothes 2. Will remain in Zone B under direct supervision of one-on-one staff at all times provided by [employer]; HANG, [place] police district switchboard operator. 3. May have paper cups, plates, finger foods as well as a cardboard spoon with which to eat meals. 4. Follow [facility] Management of the Admitted Behavioral Health Patient policy. 5. Shower available in Zone B without restriction. 6. Personal belongings-soft items permitted at RN discretion. 7. Visitors- sister in law, Whitley, and Anton's real estate loan officer, may visit. 8. Activities: soft cart items, hospital tablets (Netflix/[place]+/music) approved per RN discretion. 9.? Bathroom available in Zone B without restriction. 10. Phone: limited to [facility] cordless phone at RN discretion. Due to VOLUNTARY status, if patient wishes to leave [facility], staff will contact [facility] Crisis Screener ([phone]) and Exercise Physiology Professor ([phone]) as soon as possible. In the event of elopement, notify [place] [employer] ([phone]). Patient is currently voluntarily at [facility] and seeking inpatient admission when a bed becomes available. [facility] Frontline Awake Overnight Monitor will continue seeking placement. Please contact the Exercise Physiology Professor ([phone]) and [facility] Awake Overnight Monitor ([phone]) for any needed changes in the Safety Plan. Safety plan has been provided to interdepartmental care team.
--- NOTE | 2025-04-30 12:57 | PDOC.CMSAFE ---
Date of service: 04/30/25 Time of Service: 12:57 Care Management Safety Plan Status Status: Voluntary Reason for Wait Reason for Wait: Inpatient Admission Safety Plan Safety Plan: VOLUNTARY FOR INPATIENT PSYCHIATRIC STABILIZATION.? Patient is appropriate in all interactions since arriving at [facility]; Pt has demonstrated appropriate coping and communication skills, has articulated his or her needs and concerns and is fully engaged during staff interactions. Safety plan has been established with patient, and care team, to adhere to patient goals, identify restrictions based on behavioral status, address nutrition, and determine allowed personal belongings, tools for hygiene and personal care. Determine level of activity including ambulation, level of supervision, visitors, and determine privileges based on behaviors and level of engagement by pt. VOLUNTARY SAFETY PLAN: 1. Will remain on suicide precautions, in paper clothes 2. Will remain in Zone B under direct supervision of one-on-one staff at all times provided by [employer]; HANG, POWDER EXPERT case worker. 3. May have paper cups, plates, finger foods as well as a cardboard spoon with which to eat meals. 4. Follow [facility] Management of the Admitted Behavioral Health Patient policy. 5. Shower available in Zone B without restriction. 6. Personal belongings-soft items permitted at RN discretion. 7. Visitors- sister in law, Whitley, and Anton's leasing associate, may visit. 8. Activities: soft cart items, hospital tablets (Netflix/[place]+/music) approved per RN discretion. 9.? Bathroom available in Zone B without restriction. 10. Phone: limited to [facility] cordless phone at RN discretion. Due to VOLUNTARY status, if patient wishes to leave [facility], staff will contact [facility] Crisis Screener ([phone]) and Hse Coordinator ([phone]) as soon as possible. In the event of elopement, notify [place] [employer] ([phone]). Patient is currently voluntarily at [facility] and seeking inpatient admission when a bed becomes available. [facility] Frontline Vegetable Trimmer will continue seeking placement. Please contact the Hse Coordinator ([phone]) and [facility] Vegetable Trimmer ([phone]) for any needed changes in the Safety Plan. Safety plan has been provided to interdepartmental care team.
--- NOTE | 2025-04-30 12:58 | CMPROGNOTE_ITS ---
Date of service: 04/30/25 Time of Service: 12:58 Care Management Progress Note Progress Note Text Progress Note Text: CM huddled with [facility] and [facility] staff regarding Anton's plan of care. This morning CM communicated with Lj, who offered a bed to Anton for tomorrow. [facility]IG[facility] reached out to Anton and his sister, Alicia, separately, and they both declined the bed. ELIGIO retracted the bed offer, as their program is strictly voluntary. Per RN, Anton is perseverating on different things, such as his urinary retention and the food options at [facility]. He appears to be having difficulty making a decision about his discharge, and has stated that he would like to stay at [facility]. Unfortunately, [facility] does not offer psychiatry services (outside of one time consults), therefore it is not appropriate for him to remain at [facility] if he is not willing to go to voluntary psychiatric treatment. Per [facility], Anton is denying SI, and would be appropriate to return home with a safety plan. requested a tele psych consult prior to making a plan to discharge Anton home. The consult is currently pending. Safety plan in place; CM will continue to follow. Social Determinants of Health Screening Social Determinants of health last assessed in clinic: 04/30/25 Will the Patient Participate in the Screening?: Yes Do you worry about having a steady place to live?: no Problems where you live: no known problems In the past 12 months, have you had to go without electric, gas, oil or water in your home?: no 1. Within the past 12 months, we worried whether our food would run out before we got money to buy more.: Don't know/refused 2. Within the past 12 months, the food we bought just didn't last and we didn't have money to get more.: Don't know/refused Has lack of transportation kept you from medical appointments or from doing things needed for daily living?: no Has anyone in your life made you feel unsafe or unsupported?: no How hard is it for you to pay for the very basics like food, housing, medical care, and heating? Would you say it is:: Not hard at all Do you want help finding or keeping work or a job?: Yes, help keeping work If for any reason you need help with day-to-day activities such as bathing, preparing meals, shopping, managing finances, etc., do you get the help you need?: I don?t need any help How often do you feel lonely or isolated from those around you?: Never Do you speak a language other than Syrian at home?: No Does the patient want assistance with any of the above?: No Health Related Social Needs Health related social needs: problems finding work (Z56.9) Health related social needs details: IS NOT EMPLOYED, DOES NOT WANT TO BE
--- NOTE | 2025-04-30 19:27 | W.TELEPSYCH ---
Date of service: 04/30/25 Time of Service: 19:27 Summary Note PSYCHIATRY CONSULT NOTE: INITIAL EVALUATION Date/Time:?04/30/2025 7:24:07 PM Name:Bruno Burnette :?1960 Location of the patient:?[facility] ED Consulting Array Clinician:Richmond Randolph Location of the clinician:?[place] Length of Consult:?45 minutes SUMMARY 65-year-old male, with history of bipolar disorder, depressive disorder, history of suicide attempt(s), history of psychiatric hospitalization, with no current excessive drug use, no history of violent behavior, arrived via EMS alerted by family for suicide attempt, depression. Patient took an overdose on benzodiazepines and presented with altered mental status. Throughout most of his stay he has been indicating that he was intentionally trying to kill himself, continued to be suicidal, hopeless, saw no point in living due to his medical problems and was agreeable to voluntary admission. He subsequently changed his mind and wants to be discharged, and refused a placement. Review of his chart shows that as recently as 04/28/2025 he was telling social work that he was still suicidal and still wanted to . When seen today, he denies saying that, alleging that he does not remember saying that and does not remember telling social service manager earlier that he absolutely intended to try to kill himself again if he was released. He says he is no longer suicidal, feels physically better, but he really cannot tell me at this point what he has to live for. He seems to divert into another area when I asked this question. I spoke with his [id number]-inz, and she says that as recently as yesterday, she talked to him and he was still wanting to kill himself and wanting to . I do feel that he presents as an unreliable historian and may be minimizing in an attempt to get out of the hospital and try to kill himself again. Given this, I am still recommending inpatient psychiatric admission. If he refuses he should be admitted involuntarily.Patient is at elevated risk of danger to self. Patient presently meets criteria for inpatient psychiatric hospitalization. Working Diagnoses:? F33.2 Major depressive disorder, recurrent severe without psychotic features Rule Out Diagnoses:? CPT Codes:?60802 - Psychiatric Diagnostic Evaluation with Medical Services PLAN Disposition:?Involuntary admission when medically stable ? Observation level ? Psychiatric 1:1 needed??Continue psych 1:1 OR Close observation per hospital protocol Work-up:? Pharmacological:? No psychiatric medication recommendations at this time ? Is patient psychotic? - No; Follow up needed while in the hospital??As needed for management of behavior or change in mental status Other:? Parts of this note were dictated using voice recognition software and may contain small irregularities and grammatical errors which are unintentional. ? If questions arise about the psychiatric care of this patient, please call the [employer] [facility]?to request a follow-up consult. ?Please do not contact me individually through the EMR chat as I am not?regularly logged on to?this system. The psychiatrist for the follow-up visit may be a different psychiatrist Discussed plan with onsite guest service team leader:?Yes - Dr Chavez HISTORY This evaluation was conducted remotely with the assistance of onsite staff via HIPAA-compliant video call. Patient consented to proceed with the telehealth visit. Requested by:?Vik Palumbo MD Sources of information:?Patient, medical record, KEVIN History of Present Illness:? 65-year-old male, living with family, single, retired, with history of bipolar disorder, depressive disorder, history of suicide attempt(s), history of psychiatric hospitalization, with no current excessive drug use, no history of violent behavior, arrived via EMS alerted by family for suicide attempt, depression. UDS negative, Alcohol undetectable. In the hospital, patient has been in behavioral control with no reported issues. Patient presented to the emergency department with benzodiazepine overdose and acute encephalopathy. Patient apparently overdosed on clonazepam. Medical note from today indicates that [facility] has seen the patient and has been offered to benefit [facility] which he declined. Patient was seen by social work and admitted that he overdosed not only on clonazepam but also on Ambien. He said he was no longer supposed to be here as he attempted to end his life. He was adamant that if he was to leave the ER he would attempt to kill himself again. He has numerous medical issues which are impacting his desire to . He was initially willing to seek voluntary inpatient hospitalization. Note review and 04/28/2025 indicates that he was still voluntary. Spoke with Zayra Wooten RN. he was originally voluntary and he had arrangements for admission to [facility], bt he declined. He came up with all sorts of reasons why he couldn't go. Looking for reassessment. Staff report he has been generally uncooperative at times.. Met with patient. he says he was under the impression that he had multiple places to choose from. he thought [facility] [place] was a retirement. he says he is here because he has multiple medical issues and was becoming hopeless and felt a burden on his family. he says he was brought to [facility] for hydration and food and got me back on my feet. he says he decided that he didnt want to live as a vegetable so he decided to try to OD. He confirm he was trying to kill himself, .He says he was so physically debilitated he didnt want to live any more. I asked how he is thinking about all this now and he says he feels physically better, and is more hopeful and more positive. he says he has regretted his attempt. I asked about his recent statements 04/28 that he still wanted to and he says he doesn't remember saying this. he says he doesnt know if his memory is cloudy but he doesnt recall saying this 2 days ago. Denies saying it actually. he says now he has things to live for but he has a hard time telling me what they are. He says its not as hopeful as it once was due to his health going down hill.. Collateral Contacted Contacted Whitley--KEVIN ([phone]). Collateral is unsure about patient's safety. She says he was talking about killing self just yesterday. he wasnt on and on about it but was recently talking about it. She says he is alittle better from talking to him but was clearly talking about wanting to yesterday.. PSYCHIATRIC REVIEW OF SYSTEMS (symptoms in past two weeks) Pertinent Positives:?depressed mood/anhedonia/hopelessness Pertinent Negatives:?no insomnia/no irritability/no aggressive behavior/no agitation/no anxiety/no impulsivity PSYCHIATRIC HISTORY Past Psychiatric Diagnoses/Problems:?bipolar disorder, depressive disorder Psychiatric Treatment:?Hospitalizations:?psychiatric hospitalization, [facility] 9 times in 5 years [id number], none since then ???Other Past treatment:?therapy, medication management ???Current treatment:?medication management, therapy; treatment adherent Drug/Alcohol History ???Current excessive drug/alcohol use:?none ???Past excessive drug/alcohol use:?none ???Drug/alcohol use comment:?Treatment:?none ???Withdrawal symptoms:?none ???UDS results:?UDS negative ???BAL results:?undetectable ???Active withdrawal Protocol:? Stressors:?perceived burden on others, medical comorbidity, exacerbation of mental illness Trauma:?unknown Family Psychiatric History:?none HEALTH HISTORY Medical Problems:? GERD, severe chronic pain, Prostate and pancreatic dz Is patient linked with PCP??yes Psychiatric and other clinically relevant medications:?Fluoxetine 20 mg daily, clonazepam 1 mg 3 times daily as needed Allergies/Adverse Medication Reactions:? Physical Findings:?no clinically significant changes in vital signs, no clinically significant abnormal lab values DEMOGRAPHICS/SOCIAL HISTORY Gender:?male Living Situation:?living with family, with brother, his and nephew Relationship Status:?single Education:?trade school Employment:?retired Social Support Network:?supportive social network of family or friends Legal History:?none Special Considerations:?none RISK EVALUATION Suicidality/self-injury:?Yes prior suicide attempt(s) over 6 months ago, suicidal statements, suicidal ideation One attempt around 2004 by OD Primary Suicide Screening (PSS-3) 1. In the past two weeks, have you felt down, depressed, or hopeless??YES 2. In the past two weeks, have you had thoughts of killing yourself??YES 3. In your lifetime, have you ever attempted to kill yourself??YES 3a. Within the past 6 months??YES ESS-6 Secondary Screen ( If #2 is yes or #3a is yes within the past 6 months, then complete secondary screen) 1. Positive on PSS-3 questions 2 & 3 ? active suicidal ideation with a past attempt??YES 2. Have you been thinking about how you might kill yourself??YES 3. Have you had some intention of acting on your thoughts??YES 4. Lifetime psychiatric hospitalization??YES 5. Has drinking or substance abuse ever been a problem for you??NO 6. Current irritability, agitation, or aggression??NO PSS-3/ESS-6 Secondary Screen Scoring:?Severe PSS-3/ESS-6 Scoring Interpretation Legend PSS-3 screen incomplete [Blank PSS-3 questions #2 OR #3a] PSS-3 screen unable to assess [Unable to Assess responses on PSS-3 questions #2 AND #3a] Mild [No current attempt AND No suicide plan or intent AND Score (0-2)] Moderate [No current attempt AND Active suicidal ideation with plan or intent (not both) OR Score (3-4)] Severe [Current attempt OR Suicide plan and intent OR Score (5-6)] HI/Violence/Property Destruction:?no history of violent/aggressive behavior Access to Firearms:?none Grave disability/Poor self-care:?no Psychosis:?No Protective Factors:?Has trouble finding a reason for living, never really tells me High Utilization Criteria:?none Signs of Secondary Gain:?none MENTAL STATUS EXAM Appearance and Attire:? Normal, Good eye contact, Well groomed, Thin Psychomotor agitation:? No abnormality Attitude and behavior:? Cooperative Speech:? No abnormality Mood:? Depressed Affect:? Constricted Thought Process:? Linear, Logical, Coherent Thought content:? No suicidal ideation, No homicidal ideation, No paranoia, No delusions Perception:? No hallucinations Intelligence:? Average Abstraction:? Appropriate Language:? No abnormality Orientation:? Oriented x 4 Sensorium:? Normal Knowledge:? Appropriate for education and socioeconomic status Memory:? Intact Insight:? Severe impairment Judgment:? Severe impairment SUMMARY RISK ASSESSMENT Current Suicide Risk Elevated??PSS-3/ESS-6 Scoring: Severe? Current Violence Risk Elevated??No Issues with ability to care for self.?No Richmond Tuttle , [facility]
--- NOTE | 2025-04-30 21:45 | PDOC.MHCN ---
Date of service: 04/30/25 Time of Service: 20:05 PHQ-9 Over the last 2 weeks, how often have you been bothered by any of the following problems? 1. Little interest or pleasure in doing things: several days 2. Feeling down, depressed, or hopeless: several days 3. Trouble falling or staying asleep, or sleeping too much: not at all 4. Feeling tired or having little energy: not at all 5. Poor appetite or overeating: more than half the days 6. Feeling bad about yourself - or that you are a failure or have let yourself and your family down: not at all 7. Trouble concentrating on things, such as reading the newspaper or watching television: not at all 8. Moving or speaking so slowly that other people could have noticed? - Or the opposite - being so fidgety or restless that you have been moving around a lot more than usual: not at all 9. Thoughts that you would be better off or of hurting yourself in some way: several days Total score: 5 If you checked off any problems, how difficult have these problems made it for you to do your work, take care of things at home, or get along with other people?: somewhat difficult Source: Developed by Drs. Brandin Salcedo, Jackie Villanueva, Ronaldo Madrid and colleagues, with an educational jaclyn from [employer]. Suicide Severity Rate CSSRS Have you wished you were or wished you could go to sleep and not wake up?: No Have you actually had any thoughts of killing yourself?: No CSSRS3 Have you ever done anything, started to do anything or prepared to do anything to end your life?: No Screening Score Total Score: 0 Screening: Negative Mental Health Emergency Note Release HS release signed:: Yes Reason for Visit The client presented to [facility] ED 04/26/2025 per [facility] via [facility] after an intentional overdose of 30 1 mg tablets of Klonopin and a handful of Ambien. Per report of the client upon arrival this one an intentional overdose with intent to end his life. The client is not known to [facility] prior to this and not known to this clinician. The client self reports to have been hospitalized 9 times in the past for his mental health with the last time being 2004. In the last 2 weeks has the pt presented for ES prior to today?: No Client Information Client is: New Well Housed: Yes Non Suicidal Self Injury Current: No History: No Safety Risk/Harm to Self or Others Current Ideation to Harm Self or Others: No Risk: Does risk to harm exist?: yes. Access to means: Yes. Types of Means: Other weapons and Medication. Details: The client reports having access to medications and SHARPS at home. . Counseling provided: No Risk: Moderate Risk Duty to warn indicated: No Asssessment/Mental Status Appearance: Well groomed Attitude: Cooperative and Friendly Behavior: Unremarkable Speech: Normal Affect: Cogruent with mood Mood: Other (The client reports his mood as good) Thought process: Goal directed Hallucinations: No Delusions: No Attention: Unremarkable Perception: Not impaired Orientation: Fully orientated Memory: Intact Insight: Poor Judgement: Poor Neurovegetative Symptoms Sleep: No change Appetitie: Increase Interests: No change Energy: Increase Libido: Not applicable Additional Issues: Assaultive/Threatening Behavior: No Medical Concerns: No Client engaged in active self harm w/weapon: No Threatening to run away: No Child reported abuse/neglect: No Voluntarily presenting for services: Yes Domestic violence is a concern: No Extreme Psychosis or extreme behavior is present: No Impression The client is a 65 year old biological male who resides independently in [place], [place]. The client presents in a well groomed appearance wearing blue paper hospital scrubs in his hospital bed. Affect is congruent with mood. Client is cooperative and friendly with this clinician; they report their mood as good. Thought process appears goal directed. There are no delusions observed. The client denies auditory and visual hallucinations. Cognitive assessment reveals orientation to person, place and time. The client reports having an intentional overdose on 04/26/2025 and coming to [facility] due to this. The client is then seen stating he is not sure if was a suicidal attempt of just trying to go to sleep and not feel the pain. The client reports suffering from a concussion prior to this incident and is unsure if his brain was working properly. The client states he got a concussion from falling in the bathroom and hitting his head of the sink and then the floor. The client was seen several times during the assessment going back and forth on weather this overdose was intentional or not. The client denies SI, HI and NSSI to this clinician with no intent and plan. The client scored a 5/10 on the PHQ-9 and a 0/6 on the CSSRS. The client was agreeable to go to inpatient treatment to get help around his mental health at this time. Plan/Disposition Recommended Disposition: Hospitalization facilities contacted. Plan: The client will remain in the [facility] Zone B until placement is secured. The client will be assessed by emergency until placed. Reports/communication Outcome discussed with: ED/Personnel
--- NOTE | 2025-04-30 22:31 | ED.PROG1_ITS ---
Date of service: 04/30/25 Time of Service: 22:31 Psychiatric Border Handoff Update Brief Story: Patient had suicidal attempt with overdose, has been here for quite some time, has been voluntary. Plan was to safety plan the patient home today, however Dr. Palumbo felt that a reevaluation by telepsychiatry was indicated. Telepsychiatry has evaluated the patient, and they feel that the patient is notably minimizing the significant suicide attempt the patient made, as well as is minimizing the symptoms that he was still actively feeling potential suicidality even 24 hours ago. The telemetry psychiatrist does not feel that the patient would be appropriate for discharge home, and in fact feels that he is a significant risk to himself. In fact, he also feels that the patient should be potentially made involuntary if he tries to leave because of the pote ntial significant risk for himself. We did contact [facility], and discussed the case with them, they reevaluated the patient, and will place referrals for the patient. Patient will remain here voluntarily seeking inpatient placement. Status: voluntary Able to leave: would need physician/MAGALI and crisis evaluation prior to leaving Mediation Reconciliation performed: Yes Code Status ordered: Yes Diet ordered: Yes Discharge Plan Disposition Patient Disposition: Psychiatric Hospital/Unit Specific Psychiatric Facility: Other Discharge Details Clinical Impression: Acute encephalopathy, Suicide attempt by benzodiazepine overdose, Intentional overdose of zolpidem, Increased anion gap metabolic acidosis Primary Care Provider: Sha Hillman ED Provider: Louie Chavez
--- NOTE | 2025-05-01 00:47 | NUR.NOTE ---
PT information faxed to [facility] Nursing Note:
--- NOTE | 2025-05-01 03:50 | NUR.NOTE ---
Nursing Note: [facility] called to decline patient based on medical impressions listed in chart and state they are unclear if he meets criteria. I offered to have caller speak with Provider and she declined. States that they would reconsider when medical issues are resolved.
--- NOTE | 2025-05-01 07:10 | ED.PROG1_ITS ---
Date of service: 05/01/25 Time of Service: 07:11 Psychiatric Border Handoff Update Brief Story: I received signout on this 65-year-old male in the emergency department voluntarily following a suicide attempt with zolpidem and benzodiazepines. He was evaluated by psychiatry yesterday and recommendation was to keep the patient in the emergency department voluntarily. 9:44 AM I was in touch with Dr. Rodriguez as this patient has not been declined by several facilities as he reportedly is medically complex. There was a plan in place for the patient to have a voiding trial as an outpatient in the urology clinic. Will complete voiding trial in the emergency department today in an attempt to make patient less medically complex. Patient had a bowel movement yesterday and his constipation seems to be improving. 4:20 PM Late charting due to patient care. Due to volume and acuity in the department I was unfortunately not able to attend daily huddle. Per patient's nurse Demetris update is as follows: [facility] did their daily assessment over Zoom. Planning for patient to go [facility] tomorrow, though we also have referrals out to [facility] and [facility]. Dr. Bender followed by phone as pt had a successful voiding trial. [facility] is out. Patient is urinating without a problem. Status: voluntary Able to leave: would need physician/MAGALI and crisis evaluation prior to leaving Behavioral Concerns: None Potential Disposition: Pending placement Mediation Reconciliation performed: Yes Code Status ordered: Yes Diet ordered: Yes Future to do Items: Follow-up with [facility] human services for placement. Discharge Plan Disposition Patient Disposition: Psychiatric Hospital/Unit Specific Psychiatric Facility: Other Discharge Details Clinical Impression: Suicide attempt by benzodiazepine overdose, Intentional overdose of zolpidem, Encounter for [facility] catheter removal Primary Care Provider: Sha Hillman ED Provider: Vik Palumbo
[2025-05-01] MEDS: Famotidine 20 MG TAB 40 MG PO (08:00)
[2025-05-01] MEDS: clonazePAM 1 MG TAB PO ×3 (08:01→20:43)
[2025-05-01] MEDS: Tamsulosin 0.4 MG CAPCR PO (08:01)
[2025-05-01] MEDS: Polyethylene Glycol 3350 17 GM PACKET PO (08:01)
[2025-05-01 08:07] VITALS: BP 114/77; PULSE 74; RESP 18; TEMP 36.2; O2SAT 99
--- NOTE | 2025-05-01 12:06 | CMSP_ITS ---
Date of service: 05/01/25 Time of Service: 12:07 Care Management Safety Plan Status Status: Voluntary Reason for Wait Reason for Wait: Inpatient Admission Safety Plan Safety Plan: VOLUNTARY FOR INPATIENT PSYCHIATRIC STABILIZATION.? Patient is appropriate in all interactions since arriving at [facility]; Pt has demonstrated appropriate coping and communication skills, has articulated his or her needs and concerns and is fully engaged during staff interactions. Safety plan has been established with patient, and care team, to adhere to patient goals, identify restrictions based on behavioral status, address nutrition, and determine allowed personal belongings, tools for hygiene and personal care. Determine level of activity including ambulation, level of supervision, visitors, and determine privileges based on behaviors and level of engagement by pt. VOLUNTARY SAFETY PLAN: 1. Will remain on suicide precautions, in paper clothes 2. Will remain in Zone B under direct supervision of one-on-one staff at all times provided by [employer]; HANG, MOLD WASHER milling machine operator. 3. May have paper cups, plates, finger foods as well as a cardboard spoon with which to eat meals. 4. Follow [facility] Management of the Admitted Behavioral Health Patient policy. 5. Shower available in Zone B without restriction. 6. Personal belongings-soft items permitted at RN discretion. 7. Visitors- sister in law, Whitley, and Anton's sampler radioactive waste, may visit. 8. Activities: soft cart items, hospital tablets (Netflix/Boston+/music) approved per RN discretion. 9.? Bathroom available in Zone B without restriction. 10. Phone: limited to [facility] cordless phone at RN discretion. Due to VOLUNTARY status, if patient wishes to leave [facility], staff will contact [facility] Crisis Screener ([phone]) and Train Announcer ([phone]) as soon as possible. In the event of elopement, notify [place] [employer] ([phone]). Patient is currently voluntarily at [facility] and seeking inpatient admission when a bed becomes available. [facility] Frontline Second Steward will continue seeking placement. Please contact the Train Announcer ([phone]) and [facility] Second Steward ([phone]) for any needed changes in the Safety Plan. Safety plan has been provided to interdepartmental care team.
--- NOTE | 2025-05-01 12:06 | PDOC.CMSAFE ---
Date of service: 05/01/25 Time of Service: 12:07 Care Management Safety Plan Status Status: Voluntary Reason for Wait Reason for Wait: Inpatient Admission Safety Plan Safety Plan: VOLUNTARY FOR INPATIENT PSYCHIATRIC STABILIZATION.? Patient is appropriate in all interactions since arriving at [facility]; Pt has demonstrated appropriate coping and communication skills, has articulated his or her needs and concerns and is fully engaged during staff interactions. Safety plan has been established with patient, and care team, to adhere to patient goals, identify restrictions based on behavioral status, address nutrition, and determine allowed personal belongings, tools for hygiene and personal care. Determine level of activity including ambulation, level of supervision, visitors, and determine privileges based on behaviors and level of engagement by pt. VOLUNTARY SAFETY PLAN: 1. Will remain on suicide precautions, in paper clothes 2. Will remain in Zone B under direct supervision of one-on-one staff at all times provided by [employer]; HANG, FACTORY LAY OUT ENGINEER fractionation supervisor. 3. May have paper cups, plates, finger foods as well as a cardboard spoon with which to eat meals. 4. Follow [facility] Management of the Admitted Behavioral Health Patient policy. 5. Shower available in Zone B without restriction. 6. Personal belongings-soft items permitted at RN discretion. 7. Visitors- sister in law, Whitley, and Anton's director building, may visit. 8. Activities: soft cart items, hospital tablets (Netflix/[place]+/music) approved per RN discretion. 9.? Bathroom available in Zone B without restriction. 10. Phone: limited to [facility] cordless phone at RN discretion. Due to VOLUNTARY status, if patient wishes to leave [facility], staff will contact [facility] Crisis Screener ([phone]) and Mechanical Process Engineer ([phone]) as soon as possible. In the event of elopement, notify [place] [employer] ([phone]). Patient is currently voluntarily at [facility] and seeking inpatient admission when a bed becomes available. [facility] Frontline Skeins Yarn Examiner will continue seeking placement. Please contact the Mechanical Process Engineer ([phone]) and [facility] Skeins Yarn Examiner ([phone]) for any needed changes in the Safety Plan. Safety plan has been provided to interdepartmental care team.
--- NOTE | 2025-05-01 13:01 | NUR.NOTE ---
Nursing Note: Office of Dr. Bender updated regarding ordered voiding trial. Guthrie pulled at 09:30. At 12:30, pt urinated 200ml of clear pale urine, no blood. Pt states, It stings a little when I pee.
--- NOTE | 2025-05-01 13:22 | CMPROGNOTE_ITS ---
Date of service: 05/01/25 Time of Service: 13:25 Care Management Progress Note Progress Note Text Progress Note Text: Anton met with tele psychiatry last evening, to help determine his plan of care, as he declined a voluntary bed yesterday, and [facility] was considering sending him home with a safety plan. Per report, the psychiatrist feels that Anton is high risk and requires inpatient psychiatric treatment; if he is not willing to go voluntary, the recommendation was to hold him involuntarily. Per report, Anton is willing to go to treatment voluntarily. [facility] reached out to [facility] this morning, who stated that they would consider him for admission tomorrow, if he is willing to go. CM reached out to his sister in law and [facility], Alicia, and provided her with admission paperwork for [facility], at the request of [facility]. She can fill it out and bring it to [facility] to be sent with Anton, or she can bring it with her to [facility] tomorrow morning. [facility] has asked for Anton to arrive between 9:30-10 am; TODD communicated this to his RN, who will set up transportation in the morning. Anton is voluntary, seeking inpatient psychiatric treatment. He has been accepted at [facility] for tomorrow morning, 05/02/25. Safety plan in place; TODD will continue to follow. Social Determinants of Health Screening Social Determinants of health last assessed in clinic: 05/01/25 Will the Patient Participate in the Screening?: Yes Do you worry about having a steady place to live?: no Problems where you live: no known problems In the past 12 months, have you had to go without electric, gas, oil or water in your home?: no 1. Within the past 12 months, we worried whether our food would run out before we got money to buy more.: Don't know/refused 2. Within the past 12 months, the food we bought just didn't last and we didn't have money to get more.: Don't know/refused Has lack of transportation kept you from medical appointments or from doing things needed for daily living?: no Has anyone in your life made you feel unsafe or unsupported?: no How hard is it for you to pay for the very basics like food, housing, medical care, and heating? Would you say it is:: Not hard at all Do you want help finding or keeping work or a job?: Yes, help keeping work If for any reason you need help with day-to-day activities such as bathing, preparing meals, shopping, managing finances, etc., do you get the help you need?: I don?t need any help How often do you feel lonely or isolated from those around you?: Never Do you speak a language other than Moroccan at home?: No Does the patient want assistance with any of the above?: No Health Related Social Needs Health related social needs: problems finding work (Z56.9) Health related social needs details: IS NOT EMPLOYED, DOES NOT WANT TO BE
--- NOTE | 2025-05-01 14:02 | W.PM.PROGNOT ---
Date of Service Date of service: 05/01/25 Time of Service: 14:02 Assessment and Plan Assessment and plan (1) Urinary retention: Status: Acute Assessment and plan: There is no reason he should have a catheter replaced at this time. We would recommend that he continue with tamsulosin 0.4 mg daily. I see no reason he cannot be discharged at this time. He already has a an appointment in our office, so no new appointment is necessary. Depending on his progress at the outpatient facility, we certainly might need to adjust the date of his follow-up visit. Subjective Subjective Interval history since last seen: Mr. Burnette was seen while he was up on the medical surgical unit about a week ago. His at that time, he went into urinary retention and the staff was not able to place the catheter. I was successfully able to pass a coud? tipped catheter to relieve his suprapubic discomfort and bladder distention. He was started on tamsulosin and we had planned on removing his Guthrie catheter for a voiding trial as an outpatient. In the meantime, he is back in the emergency department and is awaiting placement. I was contacted earlier today to ask if he might be able to have his voiding trial prior to leaving the emergency department. His catheter was removed earlier today and he has been able to void several times. He does have some stinging when he urinates but no blood. He feels like he is emptying his bladder as he has no suprapubic discomfort. Objective Last Vital Signs Temp 36.2 C L 05/01/25 08:07 Pulse 74 05/01/25 08:07 Resp 18 05/01/25 08:07 BP 114/77 05/01/25 08:07 Pulse Ox 99 05/01/25 08:07 Time Spent with Patient Time Spent with Patient: <25 minutes Time was spent: indepentently interpreting results
--- NOTE | 2025-05-01 16:26 | PDOC.MHCN_ITS ---
Date of service: 04/30/25 Time of Service: 11:30 PHQ-9 Over the last 2 weeks, how often have you been bothered by any of the following problems? 1. Little interest or pleasure in doing things: not at all 2. Feeling down, depressed, or hopeless: several days 3. Trouble falling or staying asleep, or sleeping too much: not at all 4. Feeling tired or having little energy: not at all 5. Poor appetite or overeating: not at all 6. Feeling bad about yourself - or that you are a failure or have let yourself and your family down: not at all 7. Trouble concentrating on things, such as reading the newspaper or watching television: several days 8. Moving or speaking so slowly that other people could have noticed? - Or the opposite - being so fidgety or restless that you have been moving around a lot more than usual: not at all 9. Thoughts that you would be better off or of hurting yourself in some way: several days Total score: 3 If you checked off any problems, how difficult have these problems made it for you to do your work, take care of things at home, or get along with other people?: not difficult at all PHQ-9 Results: Negative Source: Developed by Drs. Brandin Salcedo, Jackie Villanueva, Ronaldo Madrid and colleagues, with an educational jaclyn from [employer]. Suicide Severity Rate CSSRS Have you wished you were or wished you could go to sleep and not wake up?: Yes Have you actually had any thoughts of killing yourself?: Yes CSSRS2 Have you been thinking about how you might do this?: Yes Have you had these thoughts and had some intention of acting on them?: Yes Have you started to work out or worked out the details of how to kill yourself? Do you intend to carry out this plan?: No CSSRS3 Have you ever done anything, started to do anything or prepared to do anything to end your life?: Yes CSSRS4 Was this within the past three months?: Yes Screening Score Total Score: 8 Screening: Positive (Toxicology should be verified due to client's conflicting statements.) Mental Health Emergency Note Release [facility] release signed:: Yes Reason for Visit Client is new to [facility] during this visit. Original reason was client-reported intentional overdose. In the last 2 weeks has the pt presented for ES prior to today?: No Client Information Client is: New Well Housed: Yes Non Suicidal Self Injury Current: No History: No Safety Risk/Harm to Self or Others Current Ideation to Harm Self or Others: No Risk: Does risk to harm exist?: yes. Risk: Low Risk Duty to warn indicated: No Asssessment/Mental Status Appearance: Unremarkable Attitude: Cooperative and Friendly Behavior: Unremarkable Speech: Normal Affect: Normal and Cogruent with mood Mood: Euthymic Thought process: Loose associations, Goal directed and Tangential Hallucinations: No Delusions: No Attention: Unremarkable Perception: Not impaired Orientation: Fully orientated Memory: Intact Insight: Fair Judgement: Fair Neurovegetative Symptoms Sleep: Increase Appetitie: Increase Interests: No change Energy: No change Libido: No change Additional Issues: Assaultive/Threatening Behavior: No Medical Concerns: No Client engaged in active self harm w/weapon: No Threatening to run away: No Child reported abuse/neglect: No Voluntarily presenting for services: No Domestic violence is a concern: No Extreme Psychosis or extreme behavior is present: No Impression The client presented as clean and well-groomed, laying in a hospital bed covered with a blanket. He was friendly, cooperative, and demonstrated orientation to person, place, and time as assessed through testing. The client reported taking 30 Clonazepam, stating, 'I wanted to ,' but later contradicted himself by asserting, 'I'm invincible, I can't , I always take the pills the way I want to feel good/high.' Throughout the session, the client repeatedly expressed a desire to live, especially after learning that the only available bed was at [facility]. He voiced concerns about [facility], stating, '[facility] is full of dementia people and no tv or phone.' The client indicated a desire to remain in Zone B for a few more days, while simultaneously expressing a wish to go home, noting that his sgrosw-of-ado would manage his medications for him. Addition ally, the client engaged in manipulative behaviors by falsely reporting multiple maladies, injuries, and incidents that occurred during his hospital stay, presenting these unsubstantiated claims as new reasons 'to go back upstairs and stay for a month. ' Based on the assessment and screening tools, the client no longer met the criteria for either voluntary or involuntary mental health inpatient treatment, as he declined offers for continued care and requested to go home. Clinician consulted with entire Care Team at [facility], including review of assessments, presentation, claims. Provider suggested telepsych consult to ensure all needs have been addressed; anticipate developing collaborative safety plan home. Plan/Disposition Recommended Disposition: Community resources. Reports/communication Outcome discussed with: ED/Personnel
[2025-05-01 20:10] VITALS: BP 120/76; TEMP 37; O2SAT 72
--- NOTE | 2025-05-01 21:02 | PDOC.MHCN ---
Mental Health Emergency Note Reason for Visit SI In the last 2 weeks has the pt presented for ES prior to today?: Unknown Risk: Does risk to harm exist?: yes. Duty to warn indicated: No Asssessment/Mental Status Appearance: Unremarkable Attitude: Cooperative and Friendly Behavior: Unremarkable Speech: Normal Affect: Cogruent with mood Mood: Happy Thought process: Unremarkable Hallucinations: No evidence Delusions: No evidence Attention: Unremarkable Perception: Not impaired Orientation: Fully orientated Memory: Intact Insight: Poor Judgement: Poor Neurovegetative Symptoms Sleep: No change Appetitie: No change Interests: No change Energy: No change Libido: Not applicable Additional Issues: Voluntarily presenting for services: Yes Impression The client is not known to [facility]. He is a 65 y/o male. The client has been waiting at [facility] for voluntary inpatient MH Treatment. A safety plan was explored yesterday; however, [facility] requested a tele-psych which determined that the client should be EEd should he not be willing to pursue voluntary inpatient MH treatment. The client stated that he's excellent... better than excellent actually. The client described his mood as ecstatic and attributes his improved mood to having his Guthrie catheter removed and being able to urinate independently. The client denies SI/HI/NSSI. No plan. No intent; 0/10. Client reports no HX. Client stated never have, never will when asked about HI. Client does not have access to means at [facility]. HX, deterrents and other high risk behaviors were not assessed during this encounter. The client reported that he's been eating well while at [facility]. He reported that he slept pretty good despite waking up a couple of times due to anxiety caused from being hungry. The client has been watching TV, resting, making call and having visits since he arrived at [facility]. The client reports that he's been to treatment several times, once for 21 days, but never involuntarily. He stated that he is willing to continue to pursue voluntary inpatient MH treatment. Plan/Disposition Plan: The client will remain at [facility] while he waits for voluntary inpatient MH treamtment. [facility] has offered this client a bed for tomorrow. Person reported agreement to plan: Yes Facilities contacted if Applicable [facility] Other: Other ([facility] (accepted) and [facility] ) accepted
[2025-05-02 00:36] VITALS: BP 116/71; PULSE 77; RESP 20; TEMP 36.9; O2SAT 100
--- NOTE | 2025-05-02 00:48 | NUR.NOTE ---
pulse ox reported 05/01 2010 falsely reported at 72% unable to correct this as SUPERVISOR [employer]ATTR[employer]SPR[employer] not hereNursing Note:
--- NOTE | 2025-05-02 06:59 | ED.PROG1_ITS ---
Date of service: 05/02/25 Time of Service: 06:59 Psychiatric Border Handoff Update Brief Story: This is a 65-year-old male patient who has been boarding in our emergency department after an intentional overdose on Ambien and benzodiazepines in a suicide attempt. Prior to my taking over his care he was medically cleared, is awaiting formal placement. He has been voluntary but unfortunately this morning refused transport to the [facility] facility that he was excepted to. Based on my review of his psychiatric evaluation, which notes that the patient continues to experience some suicidal thoughts, is evasive during questioning and they are concerned that he remains an active danger to himself given his prior attempt and reports of ongoing suicidality, and for this reason based on their recommendations I did proceed with an involuntary EE form. Second CERT to be done this evening. We are now awaiting final placement once more given the patient's new involuntary status. Social work evaluated the patient and will continue to make recommendations. He is taking all medications as prescribed, and has otherwise not required any acute interventions for agitation or restraint. The patient was signed out to the oncoming provider prior to final disposition. Remained hemodynamically appropriate while under my care. Simona Dasilva MD Able to leave: no, this patient is an EE Behavioral Concerns: None Potential Disposition: Inpatient psych Barriers to Disposition: Awaiting acceptance, [facility] cannot take anybody on an EE as it [place] Medical Concerns: Hematuria after Guthrie catheter removal, hypertension Code Status ordered: Yes Diet ordered: Yes Discharge Plan Disposition Patient Disposition: Psychiatric Hospital/Unit Specific Psychiatric Facility: Other Discharge Details Clinical Impression: Suicide attempt by benzodiazepine overdose, Intentional overdose of zolpidem, Encounter for Guthrie catheter removal Primary Care Provider: Sha Hillman ED Provider: Simona Dasilva
[2025-05-02] MEDS: clonazePAM 1 MG TAB PO ×3 (08:11→20:19)
[2025-05-02] MEDS: Famotidine 20 MG TAB 40 MG PO (08:11)
[2025-05-02] MEDS: Tamsulosin 0.4 MG CAPCR PO (08:11)
[2025-05-02] MEDS: Polyethylene Glycol 3350 17 GM PACKET PO (08:11)
[2025-05-02 08:20] VITALS: BP 107/75; PULSE 72; RESP 18; TEMP 36; O2SAT 95
--- NOTE | 2025-05-02 08:27 | MHPN_ITS ---
Date of service: 05/02/25 Time of Service: 07:47 Mental Health Emergency Note Release [facility] release signed:: Yes Reason for Visit Anton is currently waiting for inpatient treatment at [facility]. The last update [facility] had was Anton was being transported to [facility] on 05/02. This verse writer received a call from Demetris in Zone B stating Anton was refusing transport and the ED doctor thought an EE would need to be complete now due to the telepscyh. This verse writer saw Anton via Zoom to have an almost immediate response time and assess if she could write an EE. Anton is previously known to [facility] since 04/26 but not previously known to this verse writer. In the last 2 weeks has the pt presented for ES prior to today?: Unknown Client Information Client is: New Well Housed: Yes Non Suicidal Self Injury Current: No History: No Safety Risk/Harm to Self or Others Current Ideation to Harm Self or Others: No Risk: Does risk to harm exist?: No Risk: N/A Duty to warn indicated: No Asssessment/Mental Status Appearance: Unremarkable Attitude: Guarded Behavior: Unremarkable Speech: Normal Affect: Cogruent with mood Mood: Stressed and Anxious Thought process: Goal directed Hallucinations: No evidence Delusions: No evidence Attention: Unremarkable Perception: Not impaired Orientation: Fully orientated Insight: Poor Judgement: Poor Neurovegetative Symptoms Sleep: Decrease Appetitie: Decrease Interests: No change Energy: No change Libido: Not applicable Substance Use: Do you use nicotine?: No Have you used substances in the last 7 days?: No Additional Issues: Assaultive/Threatening Behavior: No Medical Concerns: No Client engaged in active self harm w/weapon: No Threatening to run away: No Child reported abuse/neglect: No Voluntarily presenting for services: No Domestic violence is a concern: No Extreme Psychosis or extreme behavior is present: No Impression Anton presents to this verse writer in blue paper scrubs in the emergency room. Anton has refused a transfer to [facility] in [place] for the second time this morning; Anton reports he does not want to go there and he does not want to have to chose. Anton reported he thinks an involuntary would be easier. Anton is not endorsing SI, HI, or NSSI at this time; but Anton also told this verse writer he has never attempted to end his life but it was confirmed previously the overdose on 04/26 was in attempt to end his life. Anton beat around the bernabe when telling this verse writer why he initially came into the ED and stated it was due to medical instability. When this verse writer asked how he has been since being at the emergency room he stated, ?unstable? but was not able to elaborate. Anton was seen by a psychiatrist on 04/30/25 who reported if he was not willing to accept treatment, he met criteria for an EE. ?I do feel that he presents as an unreliable historian and may be minimizing in an attempt to get out of the hospital and try to kill himself again. Given this, I am still recommending inpatient psychiatric admission. If he refuses he should be admitted involuntarily. Patient is at elevated risk of danger to self. Patient presently meets criteria for inpatient psychiatric hospitalization.? This was written by the psychiatrist in his telepsych. Anton is not presenting as capable of making decisions to keep himself and the community safe at this time. Anton is presenting as a risk to himself as he is not being truthful, recently attempted to end his life, and is no longer making the decision to accept treatment for his mental health. A conversation was had with Dr Coronado and an EE was completed which can be found in Anton's chart. Plan/Disposition Recommended Disposition: Hospitalization (An EE was completed for Anton, it was sent to [facility].) facilities contacted. Plan: Anton is now on an EE and will be seen 2x daily until placed. Person reported agreement to plan: Yes Reports/communication Outcome discussed with: ED/Personnel
--- NOTE | 2025-05-02 10:26 | PDOC.CMSAFE ---
Date of service: 05/02/25 Time of Service: 10:27 Care Management Safety Plan Status Status: Involuntary Reason for Wait Reason for Wait: Inpatient Admission and Assessment/Screening (second screening) Safety Plan Safety Plan: INVOLUNTARY FOR INPATIENT PSYCHIATRIC STABILIZATION.? Patient is appropriate in all interactions since arriving at [facility]; Pt has demonstrated appropriate coping and communication skills, has articulated his or her needs and concerns and is fully engaged during staff interactions. Safety plan has been established with patient, and care team, to adhere to patient goals, identify restrictions based on behavioral status, address nutrition, and determine allowed personal belongings, tools for hygiene and personal care. Determine level of activity including ambulation, level of supervision, visitors, and determine privileges based on behaviors and level of engagement by pt. SAFETY PLAN: 1. Will remain on suicide precautions, in paper clothes 2. Will remain in Zone B under direct supervision of one-on-one staff at all times provided by [employer]; HANG, VP SCIENTIFIC AFFAIRS experience design director. 3. May have paper cups, plates, finger foods as well as a cardboard spoon with which to eat meals. 4. Follow [facility] Management of the Admitted Behavioral Health Patient policy. 5. Shower available in Zone B without restriction. 6. Personal belongings-soft items permitted at RN discretion. 7. Visitors-none at this time. 8. Activities: soft cart items approved per RN discretion. 9.? Bathroom available in Zone B without restriction. 10. Phone: limited to transactional paralegal on [facility] cordless phone at RN discretion. Due to INVOLUNTARY status, patient is being held at [facility] by the Department of Mental Health ([facility]) until 2nd certification by [facility] Psychiatrist can be performed (within 24 hours). Staff will provide de-escalation support (CPI) as needed. If patient wishes to leave [facility], staff will contact [facility] Crisis Screener ([phone]) and Assistant Front End Manager ([phone]) as soon as possible. In the event of elopement, notify [place] [employer] ([phone]). Patient is currently involuntarily at [facility]. [facility] Frontline Aerospace Medicine Physician will continue seeking placement. Please contact the Assistant Front End Manager for any needed changes to Safety Plan. Safety plan has been provided to interdepartmental care team. Patient will be transported by [facility] at time of discharge.
--- NOTE | 2025-05-02 10:29 | CMPROGNOTE_ITS ---
Date of service: 05/02/25 Time of Service: 10:29 Care Management Progress Note Progress Note Text Progress Note Text: Anton refused his transfer to [facility] this morning. Because of this, emergent evaluation was done and Anton was EE'd. Second cert to be completed this evening. CM did huddle with Zone B RN today. Social Determinants of Health Screening Social Determinants of health last assessed in clinic: 05/02/25 Will the Patient Participate in the Screening?: Yes Do you worry about having a steady place to live?: no Problems where you live: no known problems In the past 12 months, have you had to go without electric, gas, oil or water in your home?: no 1. Within the past 12 months, we worried whether our food would run out before we got money to buy more.: Don't know/refused 2. Within the past 12 months, the food we bought just didn't last and we didn't have money to get more.: Don't know/refused Has lack of transportation kept you from medical appointments or from doing things needed for daily living?: no Has anyone in your life made you feel unsafe or unsupported?: no How hard is it for you to pay for the very basics like food, housing, medical care, and heating? Would you say it is:: Not hard at all Do you want help finding or keeping work or a job?: Yes, help keeping work If for any reason you need help with day-to-day activities such as bathing, preparing meals, shopping, managing finances, etc., do you get the help you need?: I don?t need any help How often do you feel lonely or isolated from those around you?: Never Do you speak a language other than Lithuanian at home?: No Does the patient want assistance with any of the above?: No Health Related Social Needs Health related social needs: problems finding work (Z56.9) Health related social needs details: IS NOT EMPLOYED, DOES NOT WANT TO BE
--- NOTE | 2025-05-02 18:05 | MHPN_ITS ---
Date of service: 05/02/25 Time of Service: 18:10 Mental Health Emergency Note Release [facility] release signed:: Yes Reason for Visit Anton is currently at [facility] on an EE due to him refusing transport to [facility] for the second time this morning. Anton is being seen fro the second time today by this speech writer and this is also his 2nd cert. In the last 2 weeks has the pt presented for ES prior to today?: Yes, presented at [facility] ED Client Information Client is: New Well Housed: Yes Non Suicidal Self Injury Current: No History: No Safety Risk/Harm to Self or Others Current Ideation to Harm Self or Others: No Risk: Does risk to harm exist?: No Risk: N/A Duty to warn indicated: No Asssessment/Mental Status Appearance: Unremarkable Attitude: Cooperative Behavior: Unremarkable Speech: Normal Affect: Cogruent with mood Mood: Stressed Thought process: Unremarkable Hallucinations: No evidence Delusions: No evidence Attention: Unremarkable Perception: Not impaired Orientation: Disoriented in Time and Situation Memory: Intact Insight: Poor Judgement: Poor Neurovegetative Symptoms Sleep: No change Appetitie: No change Interests: No change Energy: No change Libido: Not applicable Substance Use: Do you use nicotine?: No Have you used substances in the last 7 days?: No Additional Issues: Assaultive/Threatening Behavior: No Medical Concerns: No Client engaged in active self harm w/weapon: No Threatening to run away: No Child reported abuse/neglect: No Voluntarily presenting for services: No Domestic violence is a concern: No Extreme Psychosis or extreme behavior is present: No Impression Anton is a single [age] year old male who resides in [facility] with his extended family. Anton has only been known to [facility] since April 26 of this year. This speech writer met Anton for the first time this morning during a reassessment which resulted in an EE due to him refusing voluntary treatment for the second time. Anton is presenting tonight in Zone B via tele-health with Dr Villa running the assessment. Anton is wearing blue paper scrubs, presents as calm, cooperative, and engaged. Anton is disoriented and struggles to remember the day of the week, date of the year, but did remember the year. Anton is having a difficult time remembering the order of events as he explains them to Dr Villa, he got assistance from this speech writer and KHAI Willson from Zone B who helped guide the timeline based off our knowledge as well as the documentation to assist in Dr Villa to be aware of the whole situation.Anton shares that he has had a lot of anxiety recently especially around his medical needs. Anton also shared a previous suicide attempt between [id number] where he attempted to overdose. Anton had not previously disclosed this. Dr Villa shares to Anton's increased anxiety and inability to recall events is evident that he meets criteria for the second cert to pass. Plan/Disposition Recommended Disposition: Hospitalization facilities contacted. Plan: Anton will remain at [facility] until treatment is secured. Person reported agreement to plan: Yes Facilities contacted if Applicable [facility] Not accepted, Medical reasons [facility] Not accepted, No bed available [facility] Not accepted, No bed available, [facility] Not accepted, No bed available [facility] Not accepted, No bed available [facility] Not accepted, No bed available Reports/communication Outcome discussed with: ED/Personnel
--- NOTE | 2025-05-03 07:08 | ED.PROG1_ITS ---
Date of service: 05/03/25 Time of Service: 07:36 Psychiatric Border Handoff Update Brief Story: In brief, this is a 65-year-old male patient with a history of bipolar disorder, hypertension, boarding in our emergency department on an EE after an intentional overdose on Klonopin and Ambien in a suicide attempt. Prior to my taking over their care, the patient was medically cleared, and has been resting comfortably. They have met with the aids social worker and we are awaiting final dispo. They have not required any additional medications for restraint or sedation. They have been admitted to ED psych observation. They were signed out to the oncoming provider prior to final disposition. Remained hemodynamically appropriate, calm, and cooperative while under my care. Simona Dasilva MD Status: EE Able to leave: no, this patient is an EE Behavioral Concerns: None Potential Disposition: Involuntary inpatient psychiatric placement Barriers to Disposition: Unable to go to [facility] as he is now on an EE, declined from [place] [facility] Concerns: None active Code Status ordered: Yes Diet ordered: Yes Discharge Plan Disposition Patient Disposition: Psychiatric Hospital/Unit Specific Psychiatric Facility: Other Discharge Details Clinical Impression: Suicide attempt by benzodiazepine overdose, Intentional overdose of zolpidem, Encounter for [facility] catheter removal Primary Care Provider: Sha Hillman ED Provider: Simona Dasilva
[2025-05-03] MEDS: clonazePAM 1 MG TAB PO ×3 (07:57→20:32)
[2025-05-03] MEDS: Famotidine 20 MG TAB 40 MG PO (07:57)
[2025-05-03] MEDS: Tamsulosin 0.4 MG CAPCR PO (07:57)
[2025-05-03] MEDS: Polyethylene Glycol 3350 17 GM PACKET PO (08:25)
--- NOTE | 2025-05-03 09:00 | CMSP_ITS ---
Date of service: 05/03/25 Time of Service: 09:00 Care Management Safety Plan Status Status: Involuntary Reason for Wait Reason for Wait: Inpatient Admission Safety Plan Safety Plan: INVOLUNTARY FOR INPATIENT PSYCHIATRIC STABILIZATION.? Patient is appropriate in all interactions since arriving at [facility]; Pt has demonstrated appropriate coping and communication skills, has articulated his or her needs and concerns and is fully engaged during staff interactions. Safety plan has been established with patient, and care team, to adhere to patient goals, identify restrictions based on behavioral status, address nutrition, and determine allowed personal belongings, tools for hygiene and personal care. Determine level of activity including ambulation, level of supervision, visitors, and determine privileges based on behaviors and level of engagement by pt. SAFETY PLAN: 1. Will remain on suicide precautions, in paper clothes 2. Will remain in Zone B under direct supervision of one-on-one staff at all times provided by [employer]; HANG, GENETICS PHYSICIAN addiction social worker. 3. May have paper cups, plates, finger foods as well as a cardboard spoon with which to eat meals. 4. Follow [facility] Management of the Admitted Behavioral Health Patient policy. 5. Shower available in Zone B without restriction. 6. Personal belongings-soft items permitted at RN discretion. 7. Visitors-none at this time. 8. Activities: soft cart items approved per RN discretion. 9.? Bathroom available in Zone B without restriction. 10. Phone: limited to real estate legal assistant on [facility] cordless phone at RN discretion. Due to INVOLUNTARY status, patient is being held at [facility] by the Department of Mental Health ([facility]) until 2nd certification by [facility] Psychiatrist can be performed (within 24 hours). Staff will provide de-escalation support (CPI) as needed. If patient wishes to leave [facility], staff will contact [facility] Crisis Screener ([phone]) and Cottage Cheese Maker ([phone]) as soon as possible. In the event of elopement, notify [place] [employer] Police ([phone]). Patient is currently involuntarily at [facility]. [facility] Frontline Retail Personal Banker will continue seeking placement. Please contact the Cottage Cheese Maker for any needed changes to Safety Plan. Safety plan has been provided to interdepartmental care team. Patient will be transported by [employer] at time of discharge.
--- NOTE | 2025-05-03 09:00 | PDOC.CMSAFE ---
Date of service: 05/03/25 Time of Service: 09:00 Care Management Safety Plan Status Status: Involuntary Reason for Wait Reason for Wait: Inpatient Admission Safety Plan Safety Plan: INVOLUNTARY FOR INPATIENT PSYCHIATRIC STABILIZATION.? Patient is appropriate in all interactions since arriving at [facility]; Pt has demonstrated appropriate coping and communication skills, has articulated his or her needs and concerns and is fully engaged during staff interactions. Safety plan has been established with patient, and care team, to adhere to patient goals, identify restrictions based on behavioral status, address nutrition, and determine allowed personal belongings, tools for hygiene and personal care. Determine level of activity including ambulation, level of supervision, visitors, and determine privileges based on behaviors and level of engagement by pt. SAFETY PLAN: 1. Will remain on suicide precautions, in paper clothes 2. Will remain in Zone B under direct supervision of one-on-one staff at all times provided by [employer]; HANG, AUTOMOTIVE EXHAUST EMISSIONS TECHNICIAN solar sales representative and assessor. 3. May have paper cups, plates, finger foods as well as a cardboard spoon with which to eat meals. 4. Follow [facility] Management of the Admitted Behavioral Health Patient policy. 5. Shower available in Zone B without restriction. 6. Personal belongings-soft items permitted at RN discretion. 7. Visitors-none at this time. 8. Activities: soft cart items approved per RN discretion. 9.? Bathroom available in Zone B without restriction. 10. Phone: limited to legal process specialist on [facility] cordless phone at RN discretion. Due to INVOLUNTARY status, patient is being held at [facility] by the Department of Mental Health ([facility]) until 2nd certification by [facility] Psychiatrist can be performed (within 24 hours). Staff will provide de-escalation support (CPI) as needed. If patient wishes to leave [facility], staff will contact [facility] Crisis Screener ([phone]) and Automotive Glass Technician ([phone]) as soon as possible. In the event of elopement, notify [place] [employer] Police ([phone]). Patient is currently involuntarily at [facility]. [facility] Frontline Archival Records Clerk will continue seeking placement. Please contact the Automotive Glass Technician for any needed changes to Safety Plan. Safety plan has been provided to interdepartmental care team. Patient will be transported by [employer] at time of discharge.
--- NOTE | 2025-05-03 14:45 | PDOC.MHPN2 ---
Date of service: 05/03/25 Time of Service: 10:20 Mental Health Emergency Note Release [facility] release signed:: Yes Reason for Visit In the last 2 weeks has the pt presented for ES prior to today?: Yes, presented at [facility] ED Client Information Client is: New Well Housed: Yes Non Suicidal Self Injury Current: No History: No Safety Risk/Harm to Self or Others Current Ideation to Harm Self or Others: No Risk: Does risk to harm exist?: No Risk: N/A Duty to warn indicated: No Asssessment/Mental Status Appearance: Unremarkable Attitude: Cooperative Behavior: Unremarkable Speech: Normal Affect: Cogruent with mood Mood: Stressed Thought process: Unremarkable Hallucinations: No evidence Delusions: No evidence Attention: Unremarkable Perception: Not impaired Orientation: Disoriented in Time and Situation Memory: Intact Insight: Poor Judgement: Poor Neurovegetative Symptoms Sleep: No change Appetitie: No change Interests: No change Energy: No change Libido: Not applicable Substance Use: Do you use nicotine?: No Have you used substances in the last 7 days?: No Additional Issues: Assaultive/Threatening Behavior: No Medical Concerns: No Client engaged in active self harm w/weapon: No Threatening to run away: No Child reported abuse/neglect: No Voluntarily presenting for services: No Domestic violence is a concern: No Extreme Psychosis or extreme behavior is present: No Impression The client is a 65-year-old male presenting at [facility] Zone B for reassessment while awaiting placement on emergency evaluation (EE) status. He is oriented across all spheres and presents with a smile, stating, I'm feeling good. He reported sleeping through the night and mentioned, I'm eating like a lina. The client expressed that he feels he is on the right track and denies any lethality concerns. He preferred not to engage in lengthy conversation, stating, I'm working on my crossword puzzle. The client will undergo a second reassessment later this evening while awaiting placement. Plan/Disposition Recommended Disposition: Hospitalization facilities contacted. Plan: Anton will remain at [facility] until treatment is secured. Person reported agreement to plan: Yes Facilities contacted if Applicable [facility] Not accepted, Medical reasons [facility] Not accepted, No bed available [facility] Not accepted, No bed available, [facility] Not accepted, No bed available [facility] Not accepted, No bed available [facility] Not accepted, No bed available Reports/communication Outcome discussed with: ED/Personnel ()
--- NOTE | 2025-05-03 16:47 | PDOC.CMPRO ---
Date of service: 05/03/25 Time of Service: 09:10 Care Management Progress Note Progress Note Text Progress Note Text: CM huddled with [facility] B staff today. Anton is being seen 2x/d by [facility] due to his involuntary status. Referrals have been sent, awaiting available bed. MH Services (Omit if N/A) Current Services: [facility] Status Status: Involuntary Reason for Wait: Inpatient Admission Social Determinants of Health Screening Social Determinants of health last assessed in clinic: 05/03/25 Will the Patient Participate in the Screening?: Yes Do you worry about having a steady place to live?: no Problems where you live: no known problems In the past 12 months, have you had to go without electric, gas, oil or water in your home?: no 1. Within the past 12 months, we worried whether our food would run out before we got money to buy more.: Don't know/refused 2. Within the past 12 months, the food we bought just didn't last and we didn't have money to get more.: Don't know/refused Has lack of transportation kept you from medical appointments or from doing things needed for daily living?: no Has anyone in your life made you feel unsafe or unsupported?: no How hard is it for you to pay for the very basics like food, housing, medical care, and heating? Would you say it is:: Not hard at all Do you want help finding or keeping work or a job?: Yes, help keeping work If for any reason you need help with day-to-day activities such as bathing, preparing meals, shopping, managing finances, etc., do you get the help you need?: I don?t need any help How often do you feel lonely or isolated from those around you?: Never Do you speak a language other than Mexican at home?: No Does the patient want assistance with any of the above?: No Health Related Social Needs Health related social needs: problems finding work (Z56.9) Health related social needs details: IS NOT EMPLOYED, DOES NOT WANT TO BE
[2025-05-03 16:54] VITALS: BP 121/75; PULSE 75; RESP 16; TEMP 36.8; O2SAT 100
--- NOTE | 2025-05-03 19:50 | MHPN_ITS ---
Date of service: 05/03/25 Time of Service: 18:40 Mental Health Emergency Note Release [facility] release signed:: Yes Reason for Visit Anton is previously known to [facility] and this screenplay writer. Anton is at [facility] on an EE due to concerns for his safety after an overdose attempt. In the last 2 weeks has the pt presented for ES prior to today?: Yes, presented at [facility] ED Client Information Client is: New Well Housed: Yes Non Suicidal Self Injury Current: No History: No Safety Risk/Harm to Self or Others Current Ideation to Harm Self or Others: No Risk: Does risk to harm exist?: No Risk: N/A Duty to warn indicated: No Asssessment/Mental Status Appearance: Unremarkable Attitude: Cooperative Behavior: Unremarkable Speech: Normal Affect: Cogruent with mood Mood: Euthymic Thought process: Unremarkable Hallucinations: No evidence Delusions: No evidence Attention: Unremarkable Perception: Not impaired Memory: Intact Insight: Fair Judgement: Fair Neurovegetative Symptoms Sleep: No change Appetitie: No change Interests: No change Energy: No change Libido: Not applicable Substance Use: Do you use nicotine?: No Have you used substances in the last 7 days?: No Additional Issues: Assaultive/Threatening Behavior: No Medical Concerns: No Client engaged in active self harm w/weapon: No Threatening to run away: No Child reported abuse/neglect: No Voluntarily presenting for services: No Domestic violence is a concern: No Extreme Psychosis or extreme behavior is present: No Impression Anton is a single [age] year old male who resides in [facility] with his extended family. Anton has only been known to [facility] since April 26 of this year. This screenplay writer met Anton for the first time yesterday, Anton presents to this screenplay writer sitting in the common area in blue paper scrubs, Anton is eating dinner with his family so this screenplay writer kept the interaction short. Anton denies Si, HI, NSSi at this time. Anton reports he is doing great and he has no questions or concerns at this time. Anton reports he does not need anything but if anything changes he will ask to call [facility]. Plan/Disposition Recommended Disposition: Hospitalization facilities contacted. Plan: Anton will remain at [facility] until treatment is secured. Person reported agreement to plan: Yes Facilities contacted if Applicable [facility] Not accepted, Medical reasons [facility] Not accepted, No bed available, [facility] Not accepted, No bed available [facility] Not accepted, No bed available [facility] Not accepted, [facility] Reports/communication Outcome discussed with: ED/Personnel
--- NOTE | 2025-05-03 19:50 | PDOC.MHPN2 ---
Date of service: 05/03/25 Time of Service: 18:40 Mental Health Emergency Note Release [facility] release signed:: Yes Reason for Visit Anton is previously known to [facility] and this technical writer and editor. Anton is at [facility] on an EE due to concerns for his safety after an overdose attempt. In the last 2 weeks has the pt presented for ES prior to today?: Yes, presented at [facility] ED Client Information Client is: New Well Housed: Yes Non Suicidal Self Injury Current: No History: No Safety Risk/Harm to Self or Others Current Ideation to Harm Self or Others: No Risk: Does risk to harm exist?: No Risk: N/A Duty to warn indicated: No Asssessment/Mental Status Appearance: Unremarkable Attitude: Cooperative Behavior: Unremarkable Speech: Normal Affect: Cogruent with mood Mood: Euthymic Thought process: Unremarkable Hallucinations: No evidence Delusions: No evidence Attention: Unremarkable Perception: Not impaired Memory: Intact Insight: Fair Judgement: Fair Neurovegetative Symptoms Sleep: No change Appetitie: No change Interests: No change Energy: No change Libido: Not applicable Substance Use: Do you use nicotine?: No Have you used substances in the last 7 days?: No Additional Issues: Assaultive/Threatening Behavior: No Medical Concerns: No Client engaged in active self harm w/weapon: No Threatening to run away: No Child reported abuse/neglect: No Voluntarily presenting for services: No Domestic violence is a concern: No Extreme Psychosis or extreme behavior is present: No Impression Anton is a single [age] year old male who resides in [facility] [place] with his extended family. Anton has only been known to [facility] since April 26 of this year. This technical writer and editor met Anton for the first time yesterday, Anton presents to this technical writer and editor sitting in the common area in blue paper scrubs, Anton is eating dinner with his family so this technical writer and editor kept the interaction short. Anton denies Si, HI, NSSi at this time. Anton reports he is doing great and he has no questions or concerns at this time. Anton reports he does not need anything but if anything changes he will ask to call [facility]. Plan/Disposition Recommended Disposition: Hospitalization facilities contacted. Plan: Anton will remain at [facility] until treatment is secured. Person reported agreement to plan: Yes Facilities contacted if Applicable [facility] Not accepted, Medical reasons [facility] Not accepted, No bed available, [facility], No bed available [facility] Not accepted, No bed available [facility] Not accepted, Acuity Reports/communication Outcome discussed with: ED/Personnel
[2025-05-03 20:45] VITALS: BP 116/65; PULSE 77; RESP 18; TEMP 36.8; O2SAT 100
--- NOTE | 2025-05-04 07:38 | ED.PROG1_ITS ---
Date of service: 05/04/25 Time of Service: 07:38 Psychiatric Border Handoff Update Brief Story: 65-year-old male suicide attempt. Declined voluntary placement. Status: EE Able to leave: no, this patient is an EE Behavioral Concerns: No active behavioral issues. Potential Disposition: Pending placement Mediation Reconciliation performed: Yes Code Status ordered: Yes Diet ordered: Yes Future to do Items: I spoke to Delia [place] [facility] [employer]. Patient continues to remain on an EE. Awaiting bed placement. I signed patient out to Dr. Little. Discharge Plan Disposition Patient Disposition: Psychiatric Hospital/Unit Specific Psychiatric Facility: Other Discharge Details Clinical Impression: Suicide attempt by benzodiazepine overdose, Intentional overdose of zolpidem, Encounter for Guthrie catheter removal Primary Care Provider: Sha Hillman ED Provider: Vik Palumbo
[2025-05-04 07:41] VITALS: BP 121/79; PULSE 112; RESP 18; TEMP 36.2; O2SAT 99
[2025-05-04] MEDS: Famotidine 20 MG TAB 40 MG PO (10:30)
[2025-05-04] MEDS: Polyethylene Glycol 3350 17 GM PACKET PO (10:30)
[2025-05-04] MEDS: clonazePAM 1 MG TAB PO ×3 (10:30→21:30)
[2025-05-04] MEDS: Tamsulosin 0.4 MG CAPCR PO (10:30)
--- NOTE | 2025-05-04 17:48 | PDOC.MHCN ---
Date of service: 05/04/25 Time of Service: 10:30 Suicide Severity Rate CSSRS Have you wished you were or wished you could go to sleep and not wake up?: Yes Have you actually had any thoughts of killing yourself?: Yes CSSRS2 Have you been thinking about how you might do this?: Yes Have you had these thoughts and had some intention of acting on them?: No Have you started to work out or worked out the details of how to kill yourself? Do you intend to carry out this plan?: No CSSRS3 Have you ever done anything, started to do anything or prepared to do anything to end your life?: No CSSRS4 Was this within the past three months?: No Screening Score Total Score: 4 Screening: Positive Mental Health Emergency Note Release [facility] release signed:: Yes Reason for Visit Client reports suicide attempt. In the last 2 weeks has the pt presented for ES prior to today?: Unknown Safety Risk/Harm to Self or Others Current Ideation to Harm Self or Others: No Asssessment/Mental Status Appearance: Unremarkable Attitude: Cooperative and Friendly Behavior: Unremarkable Speech: Normal Affect: Normal Mood: Euthymic, Happy and Anxious Thought process: Unremarkable and Other (Future focused, speaking of things he wants to do, places to go, celebrating life, living life, getting out there) Hallucinations: No Delusions: No Attention: Unremarkable Perception: Not impaired Orientation: Fully orientated Memory: Intact Insight: Fair Judgement: Good Impression Client presents in hospital issued blue scrubs and grippy socks. Client is future oriented, friendly, and specifically asking when he can go home. Client discussed sports, travel, desire to live life after a health scare. Client appears genuine while continuing to make contradictive statements about health, intent, stating he does not remember taking medications with intent to I might have just taken a three. Plan/Disposition Recommended Disposition: Hospitalization facilities contacted. Plan: Client remains on involuntary status due to contradictory statements and evaluation results with state psychiatrist. Client could benefit from inpatient mental health treatment. Reports/communication Outcome discussed with: ED/Personnel
--- NOTE | 2025-05-04 18:12 | CMSP_ITS ---
Date of service: 05/04/25 Time of Service: 18:12 Care Management Safety Plan Status Status: Involuntary Reason for Wait Reason for Wait: Inpatient Admission Safety Plan Safety Plan: INVOLUNTARY FOR INPATIENT PSYCHIATRIC STABILIZATION.? Patient is appropriate in all interactions since arriving at [facility]; Pt has demonstrated appropriate coping and communication skills, has articulated his or her needs and concerns and is fully engaged during staff interactions. Safety plan has been established with patient, and care team, to adhere to patient goals, identify restrictions based on behavioral status, address nutrition, and determine allowed personal belongings, tools for hygiene and personal care. Determine level of activity including ambulation, level of supervision, visitors, and determine privileges based on behaviors and level of engagement by pt. SAFETY PLAN: 1. Will remain on suicide precautions, in paper clothes 2. Will remain in Zone B under direct supervision of one-on-one staff at all times provided by [employer]; HANG, AUTOMATION MECHANIC oriental rug repairer. 3. May have paper cups, plates, finger foods as well as a cardboard spoon with which to eat meals. 4. Follow [facility] Management of the Admitted Behavioral Health Patient policy. 5. Shower available in Zone B without restriction. 6. Personal belongings-soft items permitted at RN discretion. 7. Visitors- supportive visitors, at RN discretion. 8. Activities: soft cart items approved per RN discretion. 9.? Bathroom available in Zone B without restriction. 10. Phone: limited to [facility] cordless phone at RN discretion. Due to INVOLUNTARY status, patient is being held at [facility] by the Department of Mental Health ([facility]) until 2nd certification by [facility] Psychiatrist can be performed (within 24 hours). Staff will provide de-escalation support (CPI) as needed. If patient wishes to leave [facility], staff will contact [facility] Crisis Screener ([phone]) and Tool Smith ([phone]) as soon as possible. In the event of elopement, notify [place] [employer] Police ([phone]). Patient is currently involuntarily at [facility]. [facility] Frontline Vascular Ultrasound Technician will continue seeking placement. Please contact the Tool Smith for any needed changes to Safety Plan. Safety plan has been provided to interdepartmental care team. Patient will be transported by cigar wrapper at time of discharge.
--- NOTE | 2025-05-04 18:12 | PDOC.CMSAFE ---
Date of service: 05/04/25 Time of Service: 18:12 Care Management Safety Plan Status Status: Involuntary Reason for Wait Reason for Wait: Inpatient Admission Safety Plan Safety Plan: INVOLUNTARY FOR INPATIENT PSYCHIATRIC STABILIZATION.? Patient is appropriate in all interactions since arriving at [facility]; Pt has demonstrated appropriate coping and communication skills, has articulated his or her needs and concerns and is fully engaged during staff interactions. Safety plan has been established with patient, and care team, to adhere to patient goals, identify restrictions based on behavioral status, address nutrition, and determine allowed personal belongings, tools for hygiene and personal care. Determine level of activity including ambulation, level of supervision, visitors, and determine privileges based on behaviors and level of engagement by pt. SAFETY PLAN: 1. Will remain on suicide precautions, in paper clothes 2. Will remain in Zone B under direct supervision of one-on-one staff at all times provided by [employer]; HANG, STEEL BARREL REAMER annealing furnace operator. 3. May have paper cups, plates, finger foods as well as a cardboard spoon with which to eat meals. 4. Follow [facility] Management of the Admitted Behavioral Health Patient policy. 5. Shower available in Zone B without restriction. 6. Personal belongings-soft items permitted at RN discretion. 7. Visitors- supportive visitors, at RN discretion. 8. Activities: soft cart items approved per RN discretion. 9.? Bathroom available in Zone B without restriction. 10. Phone: limited to [facility] cordless phone at RN discretion. Due to INVOLUNTARY status, patient is being held at [facility] by the Department of Mental Health ([facility]) until 2nd certification by [facility] Psychiatrist can be performed (within 24 hours). Staff will provide de-escalation support (CPI) as needed. If patient wishes to leave [facility], staff will contact [facility] Crisis Screener ([phone]) and Home Performance Consultant ([phone]) as soon as possible. In the event of elopement, notify [place] [employer] Police ([phone]). Patient is currently involuntarily at [facility]. [facility] Frontline Sewer Tapper will continue seeking placement. Please contact the Home Performance Consultant for any needed changes to Safety Plan. Safety plan has been provided to interdepartmental care team. Patient will be transported by commercial construction estimator at time of discharge.
--- NOTE | 2025-05-04 18:13 | CMPROGNOTE_ITS ---
Date of service: 05/04/25 Time of Service: 18:13 Care Management Progress Note Progress Note Text Progress Note Text: CM spoke to [facility] screener this afternoon regarding Anton's plan of care. Per report, he continues to question going to treatment, and states that he is feeling better. He is currently involuntary, based on a tele psychiatric assessment that stated that he is in need of treatment, and another completed by a [facility] psychiatrist who agreed with involuntary treatment. CM spoke with [facility] INSURANCE DEFENSE PARALEGAL/patient sitter, who stated that he has been stable today. CM included supportive visitors and phone calls to his safety plan, at RN discretion. Anton is involuntary, and is waiting for inpatient psychiatric treatment. Referrals were sent to [place] facilities. Safety plan in place; CM will continue to follow. Social Determinants of Health Screening Social Determinants of health last assessed in clinic: 05/04/25 Will the Patient Participate in the Screening?: Yes Do you worry about having a steady place to live?: no Problems where you live: no known problems In the past 12 months, have you had to go without electric, gas, oil or water in your home?: no 1. Within the past 12 months, we worried whether our food would run out before we got money to buy more.: Don't know/refused 2. Within the past 12 months, the food we bought just didn't last and we didn't have money to get more.: Don't know/refused Has lack of transportation kept you from medical appointments or from doing things needed for daily living?: no Has anyone in your life made you feel unsafe or unsupported?: no How hard is it for you to pay for the very basics like food, housing, medical care, and heating? Would you say it is:: Not hard at all Do you want help finding or keeping work or a job?: Yes, help keeping work If for any reason you need help with day-to-day activities such as bathing, preparing meals, shopping, managing finances, etc., do you get the help you need?: I don?t need any help How often do you feel lonely or isolated from those around you?: Never Do you speak a language other than Cymraes at home?: No Does the patient want assistance with any of the above?: No Health Related Social Needs Health related social needs: problems finding work (Z56.9) Health related social needs details: IS NOT EMPLOYED, DOES NOT WANT TO BE
[2025-05-04 21:44] VITALS: BP 131/80; PULSE 99; RESP 16; TEMP 35; O2SAT 98
--- NOTE | 2025-05-05 07:04 | ED.PSYCHBOAR ---
Date of service: 05/05/25 Time of Service: 07:00 Psychiatric Border Handoff Update Brief Story: 65-year-old male patient with a history of bipolar who is boarding in our emergency department after a suicide attempt by overdose. Prior to my taking over their care, the patient was medically cleared, and has been resting comfortably. They have met with the social worker clinical and we are awaiting final dispo. They have not required any additional medications for restraint or sedation. They have been admitted to ED psych observation. The patient was excepted to [facility] for ongoing inpatient psychiatric management. He will be transported to that facility, remains on an EE. remained hemodynamically stable under my care. Simona Dasilva MD Status: EE Able to leave: no, this patient is an EE Behavioral Concerns: None Potential Disposition: Inpatient psychiatric Barriers to Disposition: Awaiting acceptance by a psychiatric facility Mediation Reconciliation performed: Yes Code Status ordered: Yes Diet ordered: Yes Discharge Plan Disposition Patient Disposition: Psychiatric [facility] Clinical Impression: Suicide attempt by benzodiazepine overdose, Intentional overdose of zolpidem, Encounter for Guthrie catheter removal Primary Care Provider: Sha Hillman ED Provider: Simona Dasilva Home Meds and New Rx's Prescriptions: No Action fluoxetine 20 mg capsule 20 mg PO DAILY clonazepam 1 mg tablet 1 mg PO TID PRN Rx Instructions: 1-2 tab at bedtime and 1 as needed tamsulosin 0.4 mg Capsule 0.4 mg PO DAILY Qty: 30 0RF polyethylene glycol 3350 17 gram Powder In Packet 17 g PO DAILY Qty: 30 0RF amoxicillin-pot clavulanate 875-125 mg Tablet 1 tab PO BID Qty: 10 0RF
[2025-05-05 07:34] VITALS: BP 127/70; PULSE 80; RESP 16; TEMP 36.4; O2SAT 98
[2025-05-05] MEDS: Famotidine 20 MG TAB 40 MG PO (08:46)
[2025-05-05] MEDS: clonazePAM 1 MG TAB PO ×2 (08:46→13:45)
[2025-05-05] MEDS: Tamsulosin 0.4 MG CAPCR PO (08:47)
[2025-05-05] MEDS: Polyethylene Glycol 3350 17 GM PACKET PO (08:47)
--- NOTE | 2025-05-05 12:04 | MHPN_ITS ---
Date of service: 05/05/25 Time of Service: 10:40 Suicide Severity Rate CSSRS Have you wished you were or wished you could go to sleep and not wake up?: Yes Have you actually had any thoughts of killing yourself?: Yes CSSRS2 Have you been thinking about how you might do this?: No Have you had these thoughts and had some intention of acting on them?: No Have you started to work out or worked out the details of how to kill yourself? Do you intend to carry out this plan?: No CSSRS3 Have you ever done anything, started to do anything or prepared to do anything to end your life?: Yes CSSRS4 Was this within the past three months?: Yes Screening Score Total Score: 8 Screening: Positive Mental Health Emergency Note Release [facility] release signed:: Yes Reason for Visit Reported suicide attempt In the last 2 weeks has the pt presented for ES prior to today?: Unknown Safety Risk/Harm to Self or Others Current Ideation to Harm Self or Others: No Asssessment/Mental Status Appearance: Unremarkable Attitude: Cooperative, Friendly and Other Behavior: Unremarkable and Other (Exercising by doing laps and arm exercises in main patient hallway of Zone B.) Speech: Normal Affect: Normal and Cogruent with mood Mood: Happy and Anxious Thought process: Goal directed and Tangential Hallucinations: No Delusions: No Attention: Unremarkable Perception: Not impaired Orientation: Fully orientated Memory: Intact Insight: Fair Judgement: Fair Neurovegetative Symptoms Sleep: Increase Appetitie: Increase Interests: No change Energy: Increase Libido: No change Impression Client continues to meet criteria for inpatient mental health treatment. Plan/Disposition Recommended Disposition: Hospitalization facilities contacted. Plan: Remain in [facility] until placement and transport is completed. Reports/communication Outcome discussed with: ED/Personnel
--- NOTE | 2025-05-05 13:25 | CMSP_ITS ---
Date of service: 05/05/25 Time of Service: 13:25 Care Management Safety Plan Status Status: Involuntary Reason for Wait Reason for Wait: Inpatient Admission Safety Plan Safety Plan: INVOLUNTARY FOR INPATIENT PSYCHIATRIC STABILIZATION.? Patient is appropriate in all interactions since arriving at [facility]; Pt has demonstrated appropriate coping and communication skills, has articulated his or her needs and concerns and is fully engaged during staff interactions. Safety plan has been established with patient, and care team, to adhere to patient goals, identify restrictions based on behavioral status, address nutrition, and determine allowed personal belongings, tools for hygiene and personal care. Determine level of activity including ambulation, level of supervision, visitors, and determine privileges based on behaviors and level of engagement by pt. SAFETY PLAN: 1. Will remain on suicide precautions, in paper clothes 2. Will remain in Zone B under direct supervision of one-on-one staff at all times provided by [employer]; HANG, TABLE GAMES SHIFT MANAGER clinical data abstractor. 3. May have paper cups, plates, finger foods as well as a cardboard spoon with which to eat meals. 4. Follow [facility] Management of the Admitted Behavioral Health Patient policy. 5. Shower available in Zone B without restriction. 6. Personal belongings-soft items permitted at RN discretion. 7. Visitors- supportive visitors, at RN discretion. 8. Activities: soft cart items approved per RN discretion. 9.? Bathroom available in Zone B without restriction. 10. Phone: limited to [facility] cordless phone at RN discretion. Due to INVOLUNTARY status, patient is being held at [facility] by the Department of Mental Health ([facility]) until 2nd certification by [facility] Psychiatrist can be performed (within 24 hours). Staff will provide de-escalation support (CPI) as needed. If patient wishes to leave [facility], staff will contact [facility] Crisis Screener ([phone]) and Drone Pilot ([phone]) as soon as possible. In the event of elopement, notify [place] [employer] Police ([phone]). Patient is currently involuntarily at [facility]. [facility] Frontline Financial Administrative Assistant will continue seeking placement. Please contact the Drone Pilot for any needed changes to Safety Plan. Safety plan has been provided to interdepartmental care team. Patient will be transported by group product manager at time of discharge.
--- NOTE | 2025-05-05 13:26 | CMPROGNOTE_ITS ---
Date of service: 05/05/25 Time of Service: 13:26 Care Management Progress Note Progress Note Text Progress Note Text: CM huddled with [facility] and [facility] staff today regarding Anton's plan of care. Per RN, he has been appropriate today. CM witnessed him walking around and stretching in the common area. Per [facility], he remains involuntary, due to the high risk nature of his behavior, including a serious attempt to end his life. He was voluntary, but was not willing to go to voluntary placement twice, therefore he will remain involuntary until treatment is found. Later, [facility] informed CM that he was accepted at [facility] for inpatient psychiatric treatment. [facility] will coordinate transport via [facility]. CM will continue to follow. Social Determinants of Health Screening Social Determinants of health last assessed in clinic: 05/05/25 Will the Patient Participate in the Screening?: Yes Do you worry about having a steady place to live?: no Problems where you live: no known problems In the past 12 months, have you had to go without electric, gas, oil or water in your home?: no 1. Within the past 12 months, we worried whether our food would run out before we got money to buy more.: Don't know/refused 2. Within the past 12 months, the food we bought just didn't last and we didn't have money to get more.: Don't know/refused Has lack of transportation kept you from medical appointments or from doing things needed for daily living?: no Has anyone in your life made you feel unsafe or unsupported?: no How hard is it for you to pay for the very basics like food, housing, medical care, and heating? Would you say it is:: Not hard at all Do you want help finding or keeping work or a job?: Yes, help keeping work If for any reason you need help with day-to-day activities such as bathing, preparing meals, shopping, managing finances, etc., do you get the help you need?: I don?t need any help How often do you feel lonely or isolated from those around you?: Never Do you speak a language other than Japanese at home?: No Does the patient want assistance with any of the above?: No Health Related Social Needs Health related social needs: problems finding work (Z56.9) Health related social needs details: IS NOT EMPLOYED, DOES NOT WANT TO BE
--- NOTE | 2025-05-05 17:57 | ED.PSYCHBOAR ---
Date of service: 05/05/25 Time of Service: 17:58 Psychiatric Border Handoff Update Brief Story: Patient was picked up by ambulance service to be transferred to frontline, no issues during my brief period of time on the shift with him Discharge Plan Disposition Patient Disposition: Psychiatric Hospital[facility]charge Details Clinical Impression: Suicide attempt by benzodiazepine overdose, Intentional overdose of zolpidem, Encounter for Guthrie catheter removal Primary Care Provider: Sha Hillman ED Provider: Demetris Little [place] Meds and New Rx's Prescriptions: No Action fluoxetine 20 mg capsule 20 mg PO DAILY clonazepam 1 mg tablet 1 mg PO TID PRN Rx Instructions: 1-2 tab at bedtime and 1 as needed tamsulosin 0.4 mg Capsule 0.4 mg PO DAILY Qty: 30 0RF polyethylene glycol 3350 17 gram Powder In Packet 17 g PO DAILY Qty: 30 0RF amoxicillin-pot clavulanate 875-125 mg Tablet 1 tab PO BID Qty: 10 0RF
== END 2025-05-05 18:00 ==
LOC: ER 04-28 07:25 → EDHOLD 04-28 22:37 → ER 05-04 16:40
PROVIDERS: Emergency Provider Emergency Medicine; PCP Nurse Practitioner Family; Responsible Provider Emergency Medicine; Visit Provider Emergency Medicine
DX: T42.4X2A Poisoning by benzodiazepines, intentional self-harm, initial encounter (principal); T42.6X2A Poisoning by other antiepileptic and sedative-hypnotic drugs, intentional self-harm, initial encounter; E87.21 Acute metabolic acidosis; F33.2 Major depressive disorder, recurrent severe without psychotic features; I44.4 Left anterior fascicular block; I10 Essential (primary) hypertension
CPT/HCPCS: 00123; 80048; 80307; 93005; 96127; 96360; 96361; 99285; G0378; 70450; 71045; 80320; 80329; 81003; 81015; 84443; 85025; 93010

== ENCOUNTER → 2025-05-01 08:58 | Outpatient (BNVA) | payer MEDICARE, SELFPAY | PROVIDERS: PCP Nurse Practitioner Family; Referring Provider Nurse Practitioner Family; Visit Provider Urology ==

== ENCOUNTER → 2025-07-09 14:13 | Outpatient (BNVA) | payer MEDICARE, SELFPAY | PROVIDERS: PCP Nurse Practitioner Family; Referring Provider Nurse Practitioner Family; Visit Provider Urology | DX: N40.0 Benign prostatic hyperplasia without lower urinary tract symptoms (principal); R97.20 Elevated prostate specific antigen [PSA] | CPT/HCPCS: 99215 ==

== ENCOUNTER 2025-07-09 15:28 | Outpatient (CLI) | payer MEDICARE, SELFPAY ==
[2025-07-09 16:43] LABS: Anion Gap 11.5 mmol/L (3-11); BUN 26 mg/dL (7-18); CO2 29.5 mmol/L (21.0-32.0); Calcium 10.0 mg/dL (8.5-10.1); Chloride 104 mmol/L (98-107); Estimated GFR 73.58 (mL/min/1.73m2); Glucose 77 mg/dL (74-106); Potassium 3.9 mmol/L (3.5-5.1); Sodium 145 mmol/L (136-145)
[2025-07-10 09:18] LABS: PSA, Screening 5.1 ng/mL (<=4.5)
== END 2025-07-09 15:29 | disposition home or self-care (01) ==
LOC: LBO 15:28
PROVIDERS: PCP Nurse Practitioner Family; Visit Provider Urology
DX: Z12.5 Encounter for screening for malignant neoplasm of prostate (principal); N40.0 Benign prostatic hyperplasia without lower urinary tract symptoms; I10 Essential (primary) hypertension
CPT/HCPCS: 36415; 80048; 84153; 99215; 82088